=== PATIENT | female | born 1940 | race Caucasian/White ===

== ENCOUNTER 2022-02-09 09:31 | Outpatient (CLI) | payer MEDICARE, OTHER, SELFPAY ==
--- OUTSIDE RECORDS SUMMARY | 2022-02-09 09:33 | XMS_ITS | Clinical Summary ---
:1940 Author Organization [employer] [facility] [place] [address] Care Team Providers Name Role Phone Mel Bahena MD Primary Care Provider Allergies Active Allergy Reactions Severity Noted Date Comments Propoxyphene-Acetamin Hallucinations 03/07/2007 Leonardo ucinations ophen Tolerates oxyco done Ibuprofen 11/09/2007 Tinnitis Naproxen Other - Describe In 10/29/2008 Chemica lhepatitis Comment Field Oxycodone-Acetaminoph Hallucinations 10/15/2007 en Salsalate Ototoxicity 10/29/2007 Acetaminophen 03/07/2007 hepatitis Hydrocodone-Acetamino 03/07/2007 halluc inations phen Medications Medication Sig Dispensed Refills Start Date End Date Status atenolol-chlorthalidone, Take 0.5 tablets 0 09/04/19 18 Active 50-25 mg, (TENORETIC 50) by mouth once 50-25 mg tablet daily. diphenhydrAMINE 1/2 tablet at 0 09/03/2017 Active (BENADRYL) 25 mg capsule bedtime folic acid 400 mcg Take 400 mcg by 0 Active tablet mouth once daily. aspirin enteric coated Take 1 tablet by 60 tablet 0 09/18/2017 Active (ECOTRIN) 325 mg mouth 2 times tabletIndications: daily with Post-operative state meals. sennosides-docusate, Take 1-3 tablets 0 09/18/2017 Active 8.6-50 mg, (SENOKOT S) by mouth 2 times 8.6-50 mg daily. tabletIndications: Post-operative state traMADol (ULTRAM) 50 mg Take ?? - 1 30 tablet 0 09/18/2017 Active tabletIndications: tablet by mouth Post-operative state 4 times daily if needed for Pain. WalkerIndications: Rolling Walker 1 Device 0 09/19/2017 Active Post-operative state for home use. traMADoL (ULTRAM) 50 mg .5-1 tab Q12 h, 30 tablet 0 11/14/2019 Active tabletIndications: prn pain Primary osteoarthritis of right shoulder, Aftercare following surgery Active Problems Problem Noted Date h/o right shoulder arthroscopic rotator cuff repair, s ubacromial 04/07/2019 decompression acromioclavicular joint resection, open subpectoralis biceps resection transplantation DOS: 10/30/2008 by Suzanne Primary osteoarthritis of right shoulder - advanced wi th posterior wear 04/07/2019 Early osteoarthritis of left glenohumeral joint - mode rate with neutral 04/07/2019 wear pattern Hx of Aphasia due to migraine 09/03/2017 UTI (urinary tract infection), once a year 09/03/2017 Primary osteoarthritis of left knee 06/14/2017 Overview: Left total knee arthroplasty on 09/17/[address] Guaman left shoulder s/p arthroscopic RC repair (2.5x2), SAD, AC resection, GH 03/23/2017 debridement (articular cartilage, ganglion cysts), ope n subpec biceps tenodesis-10.5.17 by Jerri Palacios MD History of right shoulder arthroscopic rotator cuff re pair, subacromial 12/20/2016 decompression, AC joint resection; open subpectoral bi ceps resection and transplantation 10/30/[address] Palacios Hip pain s/p OLEG 03/11/2008 OA (osteoarthritis) of knee 10/15/2007 Overview: S/p R TKA 10/15/2007 Essential hypertension 09/16/2007 Stress incontinence Persistent insomnia Obese Chemical induced Hepatitis Overview: tylenol induced Hx of ESBL (extended spectrum beta-lacta [place]) producing bacteria infection from UTI Resolved Problems Problem Noted Date Resolved Date Early osteoarthritis of left glenohumeral joint 03/23/2017 09/03/2017 Impingement syndrome of left shoulder 02/02/2017 Ganglion cyst in infraspinatus, left shoulder 02/02/2017 09/03/2017 Nontraumatic tear of left rotator cuff 02/02/2017 0 09/03/2017 Tendinopathy of left biceps tendon 02/02/201709/03 AC (acromioclavicular) arthritis 02/02/2017 018 Tear of left rotator cuff 12/20/2016 09/03/2017 Knee joint replacement by other means 08/14/2008 Infected dental caries 03/11/2008 09/03/2017 Arthropathy, unspecified, site unspecified 03/07/2007 09/03/2017 Secondary osteoarthritis of left shoulder 09/03/2017 Arthritis of left shoulder region 2017 Immunizations Name Administration Dates Next Due COVID-19 vaccine ([facility] 08/03/2020, 07/13/2020 30mcg/0.3mL) PF, MDV HepA-HepB (Twinrix) 03/30/2004, 05/27/2001, 02/06/2001 Influenza, IIV3 (Age >=3 years) 03/14/2008 Pneumococcal conj 7-Valent (Prevnar 7) 05/27/2001 Td (Age >=7 Years) 03/30/2004 Typhoid (injectable) 02/01/2001 Zoster (Zostavax-ZVL, live) 12/06/2006 Family History Medical History Relation Name Comments Heart Disease Father Cancer-breast Maternal Grandmother Unknown Mother in 40s of p neumonia Autoimmune disease Sister Tracey Colitis Relation Name Status Comments Father Maternal Grandmother Mother Sister Tracey Alive Social History Tobacco Use Types Packs/Day Years Used Date Never Smoker Smokeless Tobacco: Never Used Alcohol Use Standard Drinks/Week Comments Yes 0 (1 standard drink = 0.6 oz pure alcoho l) 2/week Alcohol Habits Answer Date Recorded How often do you have a drink containing alcohol? Not asked How many drinks containing alcohol do you have on a typical Not asked day when you are drinking? How often do you have six or more drinks on one occasion? No t asked Comment: 2/week 09/14/2017 Sex Assigned at Date Recorded Not on file Obstetrics History Last Filed Vital Signs Vital Sign [place] Time Taken Comments Blood Pressure 137/76 09/19/2017 7:46 AM CDT Pulse 63 09/19/2017 7:46 AM CDT Temperature 36.7 ??C (98.1 ??F) 09/19/2017 7:46 AM CDT Respiratory Rate 16 09/19/2017 7:46 AM CDT Oxygen Saturation 94% 09/19/2017 7:46 AM CDT Inhaled Oxygen Concentration - - Weight 97.4 kg (214 lb 11.7 oz) 09/17/2017 10:58 AM CDT Height 166.4 cm (5' 5.5) 09/17/2017 10:58 AM CDT Body Mass Index 35.19 09/17/2017 10:58 AM CDT Plan of Treatment Health Maintenance Due Date Last Done Comments Tdap 01/30/1951 Depression screening for age 12+ 1953 Medicare Wellness for age 65+ 2006 Pneumococcal series for age 65+ (1 - PCV) 01/29/20062000 Zoster (shingles) series for age 50+ (2 of 01/31/200712/06 3) Tetanus booster 03/30/2014 03/30/2004 BMI (ht and wt on same day) for age 18+ 09/03/2018 09/04/19 18, 02/21/2017 COVID-19 vaccine series (3 - Booster for 12/31/2020 021, 07/13/2020 Pfizer series) Influenza for age 65+ 02/09/2022 03/14/2008 DEXA/DXA scan for age 65+ Completed 01/15/2008 Medical Devices Implanted Type Area Sewing Machine Operator Zipper Device Shelf Model / Identifier Expiration Serial / Date Lot Compnt Patella 29mm Resurfacing Carla Ii [id number] Alexander - [id number] Ortho Right: Knee ALEXANDER RAMOS [id number] / Implanted: Qty: 1 on 10/15/2007 at [facility] Total NEPHEW / Joint ORTHOPAEDICS [id number] Insert Cr Sz 3-4 13mm Deep Flexion Gii - [id number] Right: Kn ee ALEXANDER RAMOS [id number]# / Implanted: Qty: 1 on 10/15/2007 at [facility] NEPHEW / ORTHOPAEDICS [id number] Head Fem Short - [id number] Right: Hip Claudia Biomet [id number]# / Implanted: Qty: 1 on 03/11/2008 at [facility] / [id number] [employer] Ftiii - [id number] Right: [employer] [id number]# / Implanted: Qty: 1 on 10/30/2008 at [facility] Shoulder / [id number] Fibertak Rc Suture [place] Triple Loaded Left: 12/08/2021 [id number] / Implanted: Qty: 1 on 03/15/2017 by Jose Ramon Palacios MD at [facility] Shoulder / [id number] Description: FIBERTAK RC SUTURE ANCHOR T RIPLE LOADED Insert Knee Sz4 11mm Triathloncruc Ret X3 - [id number] Left: Knee [employer] 04/30/2022 [id number]-G-[id number]# / Implanted: Qty: 1 on 09/17/2017 by Jadiel Miranda MD at [facility] / [id number] Results Not on filefrom Last 3 Months Additional Health Concerns Infection Onset Date Last Indicated MDRO-GNBComment: ESBL in urine-201403/15/201710/2016 Insurance Payer Benefit Plan / Subscriber ID Effective Dates Phone Addre ss Type Group MEDICARE PART A MEDICARE PART A [id number] 2006-Present ATTN: CLAIMS - HB USE ONLY HB ONLY [address] [place] [address] MEDICARE PART B MEDICARE PART B [id number] 2008-Presen ATTN: CLAIMS - HB USE ONLY HB ONLY t [address] MEDICARE - PB MEDICARE PB [id number] 2018-Present ATT N: CLAIMS USE ONLY ONLY [address] [facility] [employer] [id number] 2018-Present [address] [place] [address] Advance Directives Latest Code Status on File Code Status Date Activated Date Inactivated Comments Full Code 09/17/2017 4:43 PM 09/19/2017 1:37 PM Full Code 09/17/2017 9:50 AM 09/17/2017 4:42 PM Full Code 10/30/2008 12:39 PM 10/31/2008 1:14 PM Full Code 03/11/2008 8:23 PM 03/14/2008 4:36 PM Full Code 10/15/2007 1:21 PM 10/19/2007 4:08 PM Care Teams Helminthology Teacher Relationship Specialty Start Date End Date Mel Bahena MD PCP - General Internal Medicine 08/01/161999 [place] [address]
[2022-02-09 17:49] LABS: Chloride* 103 mmol/L (96-114)
[2022-02-09 17:50] LABS: Potassium* 3.4 mmol/L (3.6-5.1); Sodium* 141 mmol/L (135-149)
[2022-02-09 17:52] LABS: Blood Urea Nitrogen* 18 mg/dL (7-30); Carbon Dioxide* 28 mmol/L (20-32); Creatinine* 0.8 mg/dL (0.5-1.5); Estimated Glomerular Filt Rate 74 ml/min
[2022-02-09 17:53] LABS: Calcium* 9.3 mg/dL (8.4-10.6); Glucose* 104 mg/dL (60-115)
[2022-02-09 18:11] LABS: Vitamin D 25 Hydroxy* 27 ng/mL (30-80)
== END 2022-02-09 09:32 | disposition home or self-care (01) ==
PROVIDERS: Nurse Practitioner Family; PCP Internal Medicine; Visit Provider Internal Medicine
DX: I10 Essential (primary) hypertension (principal); Z79.899 Other long term (current) drug therapy; E55.9 Vitamin D deficiency, unspecified; G47.00 Insomnia, unspecified; E66.9 Obesity, unspecified; F32.A Depression, unspecified; Z13.29 Encounter for screening for other suspected endocrine disorder
CPT/HCPCS: 80048; 82306; 84443

== ENCOUNTER 2022-04-13 09:23 | Outpatient (CLI) | payer MEDICARE, OTHER, SELFPAY ==
--- OUTSIDE RECORDS SUMMARY | 2022-04-13 09:25 | XMS_ITS | Clinical Summary ---
:1940 Author Organization [employer] [facility] [place] [address] Care Team Providers Name Role Phone Mel [...] Name Administration Dates Next Due COVID-19 vaccine ([employer] 08/03/2020, 07/13/2020 30mcg/0.3mL) PF, MDV HepA-HepB (Twinrix) [...] COVID-19 vaccine series (3 - Booster for 09/28/2020 021, 07/13/2020 Pfizer series) Influenza for age 65+ 02/09/2022 03/14/2008 DEXA/DXA scan for age 65+ Completed 01/15/2008 Medical Devices Implanted Type Area Senior Military Analyst Device Shelf Model / Identifier Expiration Serial / Date Lot Compnt Patella 29mm Resurfacing Carla Ii [id number] Alexander - [id number] Ortho Right: Knee ALEXANDER RAMOS [id number] / Implanted: Qty: 1 on 10/15/2007 at [facility] Total NEPHEW / Joint ORTHOPAEDICS [id number] Insert Cr Sz 3-4 13mm Deep Flexion Gii - [id number] Right: Kn ee ALEXANDER RAMOS [id number]# / Implanted: Qty: 1 on 10/15/2007 at [facility] NEPHEW / ORTHOPAEDICS [id number] Head Fem Short - [id number] Right: Hip Claudia Biomet 9026-36# / Implanted: Qty: 1 on 03/11/2008 at [facility] / [id number] [employer]ks[employer]w Ftiii - [id number] Right: [employer] [id number]# / Implanted: Qty: 1 on 10/30/2008 at [facility] Shoulder / [id number] Fibertak Rc Suture [place] Triple Loaded Left: 12/08/2021 [id number] / Implanted: Qty: 1 on 03/15/2017 by Jose Ramon Palacios MD at [facility] Shoulder / [id number] Description: FIBERTAK RC SUTURE ANCHOR T RIPLE LOADED Insert Knee Sz4 11mm Triathloncruc Ret X3 - [id number] Left: Knee [employer] 04/30/2022 5530-G-[id number]# / Implanted: Qty: 1 on 09/17/2017 by Jadiel Miranda MD at [facility] / [id number] Results Not on filefrom Last 3 Months Additional Health Concerns Infection Onset Date Last Indicated MDRO-GNBComment: ESBL in urine-201403/15/201710/2016 Insurance Payer Benefit Plan / Subscriber ID Effective Dates Phone Addre ss Type Group MEDICARE PART A MEDICARE PART A [id number] 2006-Present ATTN: CLAIMS - HB USE ONLY HB ONLY [address] [place] [address] MEDICARE PART B MEDICARE PART B [id number] 2008-Presen ATTN: CLAIMS - HB USE ONLY HB ONLY t [address] MEDICARE - PB MEDICARE PB [id number] 2018-Present ATT N: CLAIMS USE ONLY ONLY [address] [employer] [id number] 2018-Present [address] [place] [address] Advance Directives Latest Code Status on File Code Status Date Activated Date Inactivated Comments Full Code 09/17/2017 4:43 PM 09/19/2017 1:37 PM Full Code 09/17/2017 9:50 AM 09/17/2017 4:42 PM Full Code 10/30/2008 12:39 PM 10/31/2008 1:14 PM Full Code 03/11/2008 8:23 PM 03/14/2008 4:36 PM Full Code 10/15/2007 1:21 PM 10/19/2007 4:08 PM Care Teams Youth Nutritional Monitor Relationship Specialty Start Date End Date Mel Bahena MD PCP - General Internal Medicine 08/01/161999 [place] [address]
[2022-04-13 10:31] LABS: Chloride* 102 mmol/L (96-114); Potassium* 3.4 mmol/L (3.6-5.1); Sodium* 140 mmol/L (135-149)
[2022-04-13 10:34] LABS: Blood Urea Nitrogen* 22 mg/dL (7-30); Carbon Dioxide* 29 mmol/L (20-32); Creatinine* 0.8 mg/dL (0.5-1.5); Estimated Glomerular Filt Rate 74 ml/min; Glucose* 107 mg/dL (60-115)
[2022-04-13 10:35] LABS: Calcium* 9.5 mg/dL (8.4-10.6)
== END 2022-04-13 09:24 | disposition home or self-care (01) ==
LOC: NFLDREF 09:23
PROVIDERS: PCP Internal Medicine; Visit Provider Internal Medicine
DX: I10 Essential (primary) hypertension (principal)
CPT/HCPCS: 80048

== ENCOUNTER 2022-09-07 20:20 | Emergency (ER) | payer MEDICARE, OTHER, SELFPAY ==
[2022-09-07 20:29] VITALS: BP 114/72; PULSE 86; RESP 16; TEMP 37; O2SAT 97; BMI 34.7
--- NOTE | 2022-09-07 20:34 | ED.GENADULT ---
HPI - General Adult General Time Seen by Provider: 20:34 Date Seen: 09/07/22 Chief complaint: Lower Extremity Swelling Stated complaint: Feet pain Time Seen by Provider: 09/07/22 20:34 Source: patient and RN notes reviewed Mode of arrival: ambulatory Limitations: no limitations History of Present Illness HPI narrative: Patient is an 82-year-old female that was calling to request an Effexor reduction thinking that it was causing swelling in her legs. This is a patient that has known chronic multifactorial swelling. She did see a lymphedema specialist after 1 of her orthopedic surgeries as she had severe swelling per her report. She takes chlorthalidone as part of her atenolol for a diuretic. She states she has compression stockings from her orthopedic surgeries and she sometimes wears them. 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 She states her feet are getting more swollen, she will start getting redness in her lower extremities in the get more painful. She admits that her feet are not very swollen at this time. She has had no fevers. She has seen Dr. Bahena and had this evaluated. Related Data Home Medications Medication Instructions Recorded Confirmed cholecalciferol (vitamin D3) 25 25 mcg PO QDAY 04/20/22 09/07/22 mcg (1,000 unit) capsule melatonin 5 mg capsule 2.5 mg PO .Bedtime as needed PRN 04/20/22 09/07/22 venlafaxine 225 mg tablet,extended 225 mg PO QAM 04/20/22 09/07/22 release 24 hr Previous Rx's Medication Instructions Recorded atenolol 50 mg-chlorthalidone 25 0.5 tab PO QDAY #45 tabs 04/20/22 mg tablet Allergies Allergy/AdvReac Type Severity Reaction Status Date / Time Latex Allergy Unknown Redness,Bur Uncoded 07/10/22 14:46 bill Acetaminophen Allergy Unknown Uncoded 07/10/22 14:46 [facility] Medical History (Updated 09/07/22 @ 20:56 by Jennifer Storm MD) History of migraine ?Z86.69 - Personal history of other diseases of the nervous system and sense organs (ICD-10) Surgical History (Updated 04/20/22 @ 15:27 by Mel Bahena MD) History of hip replacement ?Z96.649 - Presence of unspecified artificial hip joint (ICD-10) History of repair of rotator cuff ?Z98.890 - Other specified postprocedural states (ICD-10) History of thyroid nodule ?Z86.39 - Personal history of other endocrine, nutritional and metabolic disease (ICD-10) History of tonsillectomy and adenoidectomy ?Z90.89 - Acquired absence of other organs (ICD-10) History of total knee replacement ?Z96.659 - Presence of unspecified artificial knee joint (ICD-10) Social History Smoking Status: Never smoker Do you use any of these nicotine containing products: None How often do you have a drink containing alcohol: never AUDIT-C Alcohol total score: 0 Non-prescribed substance use: denies use Little interest or pleasure in doing things: not at all Feeling down, depressed, or hopeless: not at all Exam Const: Vital Signs, click to edit/add: Vital Signs - 24 hr 09/07/22 20:29 Temperature 98.6 F Pulse Rate [Left P ulse Oximeter] 86 Respiratory Rate 16 Blood Pressure [Le ft Upper Arm] 114/72 Pulse Oximetry 97 Oxygen Delivery Me thod Room Air Documenting provider has reviewed patient's vital signs: yes Common normals: no apparent distress, oriented x3, no limitations, healthy appearing, alert and well nourished General appearance: cooperative, comfortable, well kempt and well developed Nutritional appearance: obese HENMT: Common normals: normocephalic, head/scalp atraumatic and hearing grossly normal bilaterally Head and scalp: normocephalic and atraumatic Eye: Common normals: PERRL, EOMs intact bilaterally, conjunctivae normal and no scleral icterus Conjunctiva: conjunctiva(e) normal Pupil: PERRL Neck & C-Spine: Common normals: full ROM, no lymphadenopathy and supple Resp: Common normals: normal respiratory effort, no retractions, no use of accessory muscles and clear to auscultation bilaterally Auscultation: clear to auscultation bilaterally Cardio: Common normals: regular rate, regular rhythm, S1 normal heart sound, S2 normal heart sound, no gallops, no clicks and no murmurs Rate: regular rate Rhythm: regular rhythm Heart sounds: S1 normal and S2 normal Extremity: Other: Thickened lower extremities without pitting edema at this time. She has some thickened toenails. Normal peripheral sensation, skin throughout toes and feet are warm dry, not cool. She has got some skin changes with some small little capillary breakage in some hemosiderin staining that looks like it is developing. She has normal sensation. There is no significant erythema and I have absolutely no concerns for any cellulitis. You can see some prominent veins in her feet. Neuro: Common normals: oriented x3 Sensorium/orientation: alert Psych: Appearance: well kempt Course Course Hospital Course: Have reviewed with patient that there is absolutely no evidence of cellulitis. Redness changes with edema when the edema it is there can happen. We also reviewed that people who have edema can have a tendency to have worsening problems as time goes on. She may actually need more than just the Fredy hose that are used postoperatively and in the hospital. It is time for her to head back in to see her primary care provider, see if she needs increased management and this should happen through Dr. Bahena as there is nothing emergent tonight. She certainly does not have any cellulitis, does not even have any significant edema. Reviewed with her that I do understand that edema can be painful but this is not something were going to address and workup further here in the ER. Vital Signs Vital signs: Initial Vital Signs Temperature 98.6 F 09/07/22 20:29 Temperature Source Temporal Artery Scan 09/07/22 20:29 Pulse Rate 86 09/07/22 20:29 Respiratory Rate 16 09/07/22 20:29 Blood Pressure 114/72 09/07/22 20:29 Blood Pressure Mean 86 09/07/22 20:29 Blood Pressure Position Sitting 09/07/22 20:29 Pulse Oximetry 97 09/07/22 20:29 Oxygen Delivery Method Room Air 09/07/22 20:29 Vital Signs Temperature 98.6 F 09/07/22 20:29 Pulse Rate 86 09/07/22 20:29 Respiratory Rate 16 09/07/22 20:29 Blood Pressure 114/72 09/07/22 20:29 Pulse Oximetry 97 09/07/22 20:29 Oxygen Delivery Method Room Air 09/07/22 20:29 Temperature 98.6 F 09/07/22 20:29 Pulse Rate 86 09/07/22 20:29 Respiratory Rate 16 09/07/22 20:29 Blood Pressure 114/72 09/07/22 20:29 Pulse Oximetry 97 09/07/22 20:29 Oxygen Delivery Method Room Air 09/07/22 20:29 Critical Care Time Critical Care Time Critical Care Time: No Discharge Plan Discharge Clinical Impression: Dependent edema Patient Disposition: Home, Self-Care Condition: Stable Instructions: Leg Edema (ED) Additional Instructions: Need to get scheduled with Dr. Bahena as soon as you can get in. Recommend wearing the compression stockings as soon as you wake up in the morning and wear all day if possible. May need to get fitted for more specific compression stockings, talk to Dr. Bahena about this. There is NO evidence of cellulitis at this time. If both legs/feet are becoming red when the edema is there, there is no fever or not feeling ill, it is likely the edema process causing some redness changes. Prescriptions: No Action melatonin 5 mg capsule 2.5 mg PO .Bedtime as needed PRN venlafaxine 225 mg tablet extended release 24hr 225 mg PO QAM cholecalciferol (vitamin D3) 25 mcg (1,000 unit) capsule 25 mcg PO QDAY atenolol-chlorthalidone 50-25 mg tablet 0.5 tab PO QDAY Qty: 45 3RF Follow Up/Referrals: Mel Bahena MD [Primary Care Provider] - Stand Alone Forms: [employer] Info Instructions
[2022-09-07 21:13] VITALS: BP 114/72; PULSE 86; RESP 16; TEMP 37; O2SAT 97
== END 2022-09-07 21:18 | disposition home or self-care (01) ==
PROVIDERS: Emergency Provider Family Medicine; PCP Internal Medicine
DX: R60.9 Edema, unspecified (principal)
CPT/HCPCS: 99282; 99283

== ENCOUNTER 2022-09-23 17:08 | Outpatient (CLI) | payer MEDICARE, OTHER, SELFPAY | END 2022-09-23 17:09 | disposition home or self-care (01) | LOC: AMB 09-25 13:36 | PROVIDERS: PCP Internal Medicine; Visit Provider Family Medicine | DX: S73.005A Unspecified dislocation of left hip, initial encounter (principal) | CPT/HCPCS: A0425; A0427 ==

== ENCOUNTER 2022-09-23 17:55 | Emergency (ER) | payer MEDICARE, OTHER, SELFPAY ==
[2022-09-23] VITALS (31 sets, daily range): BP systolic 106–144; BP diastolic 53–100; PULSE 58–85; RESP 3–22; TEMP 36.6; O2SAT 82–98; BMI 35.5
[2022-09-23] MEDS: 0.9 % SODIUM CHLORIDE 1000 ml 1,000 ML IV (18:00)
--- NOTE | 2022-09-23 18:09 | CRLHL7_ITS ---
For Patients: As a result of the Cures Act, medical imaging exams and procedure reports are released immediately into your electronic medical record. You may view this report before your referring provider. If you have questions, please contact your health care provider. INDICATION: Left hip dislocation. Postreduction. COMPARISON: Pre reduction films from 1820 hours today FINDINGS: The left hip was examined with a cross-table lateral view using portable technique at 1636 hours. An AP view of the pelvis is obtained for a total of 2 views. The previously seen posteriorly dislocated femoral head has been reduced to anatomic alignment with the acetabular component of the left total hip prosthesis. There is no sign of fracture or loosening of the prosthetic components. There is no sign of a periprosthetic fracture. The components of a right total hip prosthesis remain in anatomic alignment with no sign of fracture, loosening, or dislocation. There is no sign of fracture of the holy cross osseous structures. The SI joints and pubic symphysis are normal in appearance. The rest of the bony pelvis and soft tissues are normal in appearance. IMPRESSION: Satisfactory reduction of previously dislocated left total hip prosthesis. Dictated by Dc Pinzon MD @ 09/23/2022 9:21:10 PM (Electronically Signed)
--- NOTE | 2022-09-23 18:09 | CRLHL7_ITS ---
For Patients: As a result of the Cures Act, medical imaging exams and procedure reports are released immediately into your electronic medical record. You may view this report before your referring provider. If you have questions, please contact your health care provider. HISTORY: Injury. Left hip pain. TECHNIQUE: AP pelvis and lateral view left hip. COMPARISON: No prior. FINDINGS: Left total hip arthroplasty. There is posterior dislocation of the head of the femoral component with respect to the acetabular component. No acute fracture. Intact right total hip arthroplasty. Degenerative changes of the sacroiliac joints and within the lower lumbar spine. IMPRESSION: Left total hip arthroplasty with posterior dislocation of the head of the femoral component with respect to the acetabular component. Dictated by [place] Whitney MD @ 09/24/2022 9:54:28 AM (Electronically Signed)
[2022-09-23] MEDS: fentaNYL 100 MCG/2 ML inj 50 MCG IVP (18:10)
[2022-09-23] MEDS: PROPOFOL 10 MG/ML INJ 200 MG IVP (18:29)
--- NOTE | 2022-09-23 18:29 | ED.NURSE ---
L hip reduction procedure start time. MD Gallego, MD Mina, RT, and music writer in for procedure. Pt on 3L O2 NC.
--- NOTE | 2022-09-23 18:35 | ED.NURSE ---
Procedure end time. Pt did require some supportive oxygenation via BVM during procedure. Pt remains on 3L O2 NC.
--- NOTE | 2022-09-23 18:40 | ED.NURSE ---
Supplemental O2 BEULAH'janeen.
--- NOTE | 2022-09-23 18:54 | ED.NURSE ---
Pt O2 sats dropping to low 80's when pt falls back asleep periodically. Pt easily rousable and O2 sats recover to high 90's with deep breaths.
--- NOTE | 2022-09-23 19:25 | ED.LOWEXIN ---
HPI - Extremity Injury (Lower) General Date Seen: 09/23/22 Chief Complaint: Hip Injury/Pain Stated Complaint: Fall with Hip Pain Time Seen by Provider: 09/23/22 18:05 Source: patient Mode of arrival: ambulatory Limitations: no limitations History of Present Illness HPI Narrative: Patient is 82-year-old female who presents from home, she was standing there when EMS arrived, she had bent over and twisted her leg, she told EMS she thinks she dislocated her hip, EMS gave her 4 mg of Versed on the way over along with 100 mg intranasally of fentanyl. She is still having extreme pain on the left hip, her left hip is shortened and externally rotated. She last ate approximately 6 hours ago, there is no other history of injury or fall noted. She has never before dislocated her hip, had this hip done 20 years ago complaint: hip injury Related Data Home Medications Medication Instructions Recorded Confirmed cholecalciferol (vitamin D3) 25 25 mcg PO QDAY 04/20/22 09/07/22 mcg (1,000 unit) capsule melatonin 5 mg capsule 2.5 mg PO .Bedtime as needed PRN 04/20/22 09/07/22 venlafaxine 225 mg tablet,extended 225 mg PO QAM 04/20/22 09/07/22 release 24 hr Previous Rx's Medication Instructions Recorded atenolol 50 mg-chlorthalidone 25 0.5 tab PO QDAY #45 tabs 04/20/22 mg tablet Allergies Allergy/AdvReac Type Severity Reaction Status Date / Time Latex Allergy Unknown Redness,Bur Uncoded 07/10/22 14:46 bill Acetaminophen Allergy Unknown Uncoded 07/10/22 14:46 Review of Systems Status of ROS: Reports: 6 or more systems reviewed and unremarkable except as noted in History and below and unobtainable due to medical condition PFSH [facility] Medical History History of migraine ?Z86.69 - Personal history of other diseases of the nervous system and sense organs (ICD-10) Surgical History History of hip replacement ?Z96.649 - Presence of unspecified artificial hip joint (ICD-10) History of repair of rotator cuff ?Z98.890 - Other specified postprocedural states (ICD-10) History of thyroid nodule ?Z86.39 - Personal history of other endocrine, nutritional and metabolic disease (ICD-10) History of tonsillectomy and adenoidectomy ?Z90.89 - Acquired absence of other organs (ICD-10) History of total knee replacement ?Z96.659 - Presence of unspecified artificial knee joint (ICD-10) Social History Smoking Status: Never smoker Do you use any of these nicotine containing products: None How often do you have a drink containing alcohol: never AUDIT-C Alcohol total score: 0 Non-prescribed substance use: denies use Little interest or pleasure in doing things: not at all Feeling down, depressed, or hopeless: not at all Exam Narrative: Exam Narrative: I find her in stabilization room 1, she is in some moderate to moves to 3 years distress with complains of pain, we gave her some more fentanyl for this. Her left hip is shortened and externally rotated, abdomen is soft, chest is good air entry bilaterally heart sounds are normal, her neck is supple full range of motion, no evidence of trauma or head or neck, I did roll on her side, there is no evidence of trauma the side. She has good distal pulses in her left leg, her DP and posterior tibial. I did discuss with the my other colleagues who was able to do anesthesia, respiratory was also there. She was given propofol, x-ray was done, which showed a dislocation of the left hip it appeared to be posterior on the x-rays. With my colleague Dr. Mina to anesthesia, we were able to or I was able to relocate her left hip, hip was full through full range of motion, satisfying clunk was noted. post reduction films look like the hip is in good position she is recovering normally. She is able ambulate with a walker, I think we can send her home. To ambulate with a walker, and follow up with Orthopedics, Const: Vital Signs, click to edit/add: Vital Signs - 24 hr 09/23/22 18:03 09/23/22 18:20 09/23/22 18:15 Temperature 97.8 F Pulse Rate 71 Pulse Rate [Pulse Oximeter] 81 Respiratory Rate Blood Pressure Blood Pressure [Ri ght Upper Arm] 125/97 H Pulse Oximetry 97 98 96 Oxygen Delivery Me thod Room Air Nasal Cannula Oxygen Flow Rate 3 09/23/22 18:29 09/23/22 18:30 09/23/22 18:32 Temperature Pulse Rate 76 73 85 Pulse Rate [Pulse Oximeter] Respiratory Rate 14 15 Blood Pressure 144/98 H 124/97 H Blood Pressure [Ri ght Upper Arm] Pulse Oximetry 98 96 82 L Oxygen Delivery Me thod Nasal Cannula Nasal Cannula Ambu-Bag Oxygen Flow Rate 3 3 15 09/23/22 18:37 09/23/22 18:42 09/23/22 18:45 Temperature Pulse Rate 79 67 68 Pulse Rate [Pulse Oximeter] Respiratory Rate 3 L 17 13 Blood Pressure 134/83 122/64 Blood Pressure [Ri ght Upper Arm] Pulse Oximetry 88 98 96 Oxygen Delivery Me thod Nasal Cannula Room Air Room Air Oxygen Flow Rate 3 09/23/22 18:47 09/23/22 18:52 09/23/22 18:53 Temperature Pulse Rate 69 69 67 Pulse Rate [Pulse Oximeter] Respiratory Rate 15 10 L 15 Blood Pressure 124/71 127/78 Blood Pressure [Ri ght Upper Arm] Pulse Oximetry 85 L 90 85 L Oxygen Delivery Me thod Room Air Room Air Oxygen Flow Rate 09/23/22 18:57 09/23/22 18:58 09/23/22 19:00 Temperature Pulse Rate 67 58 L 67 Pulse Rate [Pulse Oximeter] Respiratory Rate 13 13 13 Blood Pressure 117/68 Blood Pressure [Ri ght Upper Arm] Pulse Oximetry 96 97 97 Oxygen Delivery Me thod Oxygen Flow Rate 09/23/22 19:02 09/23/22 19:07 09/23/22 19:12 Temperature Pulse Rate 67 64 64 Pulse Rate [Pulse Oximeter] Respiratory Rate 15 14 14 Blood Pressure 119/75 126/100 H 125/71 Blood Pressure [Ri ght Upper Arm] Pulse Oximetry 98 98 96 Oxygen Delivery Me thod Oxygen Flow Rate 09/23/22 19:15 09/23/22 19:22 09/23/22 19:30 Temperature Pulse Rate 60 72 69 Pulse Rate [Pulse Oximeter] Respiratory Rate 11 L 22 11 L Blood Pressure 129/58 L Blood Pressure [Ri ght Upper Arm] Pulse Oximetry 98 86 L 90 Oxygen Delivery Me thod Oxygen Flow Rate 09/23/22 19:43 09/23/22 19:45 Temperature Pulse Rate 69 66 Pulse Rate [Pulse Oximeter] Respiratory Rate 15 12 Blood Pressure 127/62 Blood Pressure [Ri ght Upper Arm] Pulse Oximetry 94 96 Oxygen Delivery Me thod Oxygen Flow Rate Course Vital Signs Vital signs: Initial Vital Signs Temperature 97.8 F 09/23/22 18:03 Temperature Source Temporal Artery Scan 09/23/22 18:03 Pulse Rate 81 09/23/22 18:03 Blood Pressure 125/97 H 09/23/22 18:03 Blood Pressure Mean 106 09/23/22 18:03 Blood Pressure Position Supine 09/23/22 18:03 Pulse Oximetry 97 09/23/22 18:03 Oxygen Delivery Method Room Air 09/23/22 18:03 Vital Signs Temperature 97.8 F 09/23/22 18:03 Pulse Rate 81 09/23/22 18:03 Blood Pressure 125/97 H 09/23/22 18:03 Pulse Oximetry 97 09/23/22 18:03 Oxygen Delivery Method Room Air 09/23/22 18:03 Temperature 97.8 F 09/23/22 18:03 Pulse Rate 66 09/23/22 19:45 Respiratory Rate 12 09/23/22 19:45 Blood Pressure 127/62 09/23/22 19:43 Pulse Oximetry 96 09/23/22 19:45 Oxygen Delivery Method Room Air 09/23/22 18:52 Oxygen Flow Rate 3 09/23/22 18:37 MDM - Extremity Injury (Lower) Medical Records Attestation: I reviewed the patient's medical records. Discharge Plan Discharge Clinical Impression: Dislocation, hip Patient Disposition: Home, Self-Care Condition: Improved Instructions: Crutch Instructions (ED), Hip Dislocation (ED), Hip Abduction Pillow (DC) Additional Instructions: We generally send people home after this procedure, use the hip adduction pillow, we could try crutches or lose let you walk with a cane. Follow-up with orthopedics of ongoing signs symptoms. Careful with bending and that way that caused the issue. Tylenol 1 g p.o. t.i.d.. Activity Level: Light activity Prescriptions: No Action melatonin 5 mg capsule 2.5 mg PO .Bedtime as needed PRN venlafaxine 225 mg tablet extended release 24hr 225 mg PO QAM cholecalciferol (vitamin D3) 25 mcg (1,000 unit) capsule 25 mcg PO QDAY atenolol-chlorthalidone 50-25 mg tablet 0.5 tab PO QDAY Qty: 45 3RF Follow Up/Referrals: Mel Bahena MD [Primary Care Provider] - Stand Alone Forms: [employer] Info Instructions
--- NOTE | 2022-09-23 20:10 | ED.NURSE ---
Patient noted to desaturate to 87-89% while resting. Returns to the low 90's after several minutes. Placed patient on 1L NC. Will continue to monitor and titrate down as able.
--- NOTE | 2022-09-23 21:40 | ED.NURSE ---
Pt able to ambulate independently with a walker. Tolerates ambulation well.
== END 2022-09-23 21:57 | disposition home or self-care (01) ==
LOC: ED 20:11 → ED2 21:34
PROVIDERS: Emergency Provider Family Medicine; PCP Internal Medicine
DX: S73.005A Unspecified dislocation of left hip, initial encounter (principal); W19.XXXA Unspecified fall, initial encounter
CPT/HCPCS: 27252; 72170; 96374; 99284; 99291; J2704; J3010; J7030

== ENCOUNTER 2023-01-22 08:40 | Emergency (ER) | payer MEDICARE, OTHER, SELFPAY ==
[2023-01-22 08:50] VITALS: BP 133/78; PULSE 72; RESP 18; TEMP 36.9; O2SAT 96; BMI 35.5
--- NOTE | 2023-01-22 09:44 | CRLHL7_ITS ---
For Patients: As a result of the Century Cures Act, medical imaging exams and procedure reports are released immediately into your electronic medical record. You may view this report before your referring provider. If you have questions, please contact your health care provider. Indication: Pain, swelling Technique: Three views left wrist Comparison: None Findings: Degenerative changes are present at the radial aspect of the wrist. Osteopenia noted. Chondrocalcinosis of the TFCC. Normal carpal alignment. Impression: No sign of acute injury. Dictated by Jarod Cm MD @ 01/22/2023 10:47:29 AM (Electronically Signed)
--- NOTE | 2023-01-22 09:45 | ED_ITS ---
HPI - Extremity Injury (Upper) General Chief Complaint: Extremity Pain/Injury, Upper Stated Complaint: L arm injury - wants imaging Time Seen by Provider: 01/22/23 09:40 History of Present Illness HPI narrative: This 82-year-old female comes with pain in her left wrist and forearm. She does not describe any particular injury event but states that she has been taking care of her and thinks that she over did it trying to lift him and help move him around. She has pain and swelling in the left wrist joint. She states that she is in need of extra help at home and caring for her . She does have home health care for 12 hours a week and plans to talk with those people for additional options. Related Data Home Medications Medication Instructions Recorded Confirmed cholecalciferol (vitamin D3) 25 25 mcg PO QDAY 04/20/22 10/17/22 mcg (1,000 unit) capsule melatonin 5 mg capsule 2.5 mg PO .Bedtime as needed PRN 04/20/22 10/17/22 omega-3 fatty acids [Fish Oil] PO QDAY 10/17/22 10/17/22 Previous Rx's Medication Instructions Recorded atenolol 50 mg-chlorthalidone 25 0.5 tab PO QDAY #45 tabs 04/20/22 mg tablet venlafaxine 150 mg 150 mg PO QAM #90 caps 12/02/22 capsule,extended release 24 hr hydrocodone 5 mg-acetaminophen 325 1 tab PO Q4-6H PRN pain #20 tabs 01/22/23 mg tablet Allergies Allergy/AdvReac Type Severity Reaction Status Date / Time acetaminophen Allergy Verified 10/17/22 10:03 latex Allergy burning, Verified 10/17/22 10:03 reddness Review of Systems Status of ROS: Reports: 10 or more systems reviewed and unremarkable except as noted in History and below Narrative: Constitutional: No fevers, no weight gain or loss. Eyes: No discharge. No vision changes. HENT: No congestion, no sore throat, no ear pain. Cardiovascular: No chest pain, no palpitations. Respiratory: No shortness of breath, no wheezes, no cough. Gastrointestinal: No abdominal pain, no vomiting, no diarrhea. Genitourinary: No dysuria, no hematuria. Musculoskeletal: Left wrist pain as described above. Skin: No rashes, no pruritis. Neurological: No dizziness, weakness, sensory change, speech change. Endo/Heme/Allergies: No bruising or bleeding. No polydipsia. Pysch: no suicidality, no anxiety, no insomnia. All other systems reviewed and are negative. [facility] Medical History (Updated 01/22/23 @ 11:14 by Nixon Wincehster MD) Depression ?F32.A - Depression, unspecified (ICD-10) History of migraine ?Z86.69 - Personal history of other diseases of the nervous system and sense organs (ICD-10) Surgical History (Updated 10/17/22 @ 10:18 by Rica Stevenson) Status post total right knee replacement (~2008) ?Z96.651 - Presence of right artificial knee joint (ICD-10) History of tonsillectomy and adenoidectomy ?Z90.89 - Acquired absence of other organs (ICD-10) History of thyroid nodule ?Z86.39 - Personal history of other endocrine, nutritional and metabolic disease (ICD-10) History of repair of rotator cuff ?Z98.890 - Other specified postprocedural states (ICD-10) History of total knee replacement ?Z96.659 - Presence of unspecified artificial knee joint (ICD-10) History of hip replacement ?Z96.649 - Presence of unspecified artificial hip joint (ICD-10) Social History (Updated 10/17/22 @ 10:08 by Lay Pimentel ~ [facility], [facility]) 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 HEENT: Normocephalic, atraumatic. Neck: Normal range of motion. Nontender. Supple. Heart: Intact distal pulses. Lungs: No chest discomfort. No wheezes, rhonchi, or rales. Abdomen: Nontender. Back: Normal range of motion. Extremities: Left wrist has some erythema and swelling with decreased range of motion. Skin: Intact. No rash. Warm. No erythema or pallor. Neurologic: No altered sensation. No weakness. Alert and oriented. Psychiatric: No suicidality. No anxiety or depression. No insomnia. Nursing notes and vitals signs are reviewed. Const: Vital Signs, click to edit/add: Vital Signs - 24 hr 01/22/23 08:50 Temperature 98.4 F Pulse Rate [Right Pulse Oximeter] 72 Respiratory Rate 18 Blood Pressure [Ri ght Upper Arm] 133/78 Pulse Oximetry 96 Oxygen Delivery Me thod Room Air Course Vital Signs Vital signs: Initial Vital Signs Temperature 98.4 F 01/22/23 08:50 Temperature Source Temporal Artery Scan 01/22/23 08:50 Pulse Rate 72 01/22/23 08:50 Respiratory Rate 18 01/22/23 08:50 Blood Pressure 133/78 01/22/23 08:50 Blood Pressure Mean 96 01/22/23 08:50 Blood Pressure Position Sitting 01/22/23 08:50 Pulse Oximetry 96 01/22/23 08:50 Oxygen Delivery Method Room Air 01/22/23 08:50 Vital Signs Temperature 98.4 F 01/22/23 08:50 Pulse Rate 72 01/22/23 08:50 Respiratory Rate 18 01/22/23 08:50 Blood Pressure 133/78 01/22/23 08:50 Pulse Oximetry 96 01/22/23 08:50 Oxygen Delivery Method Room Air 01/22/23 08:50 Temperature 98.4 F 01/22/23 08:50 Pulse Rate 72 01/22/23 08:50 Respiratory Rate 18 01/22/23 08:50 Blood Pressure 133/78 01/22/23 08:50 Pulse Oximetry 96 01/22/23 08:50 Oxygen Delivery Method Room Air 01/22/23 08:50 MDM - Extremity Injury (Upper) MDM Narrative Medical decision making narrative: This patient comes in with pain and swelling of her left wrist. There was no specific injury event but there was a number of times when she was attempting to lift her who just had a stroke a couple weeks ago. X-ray imaging today shows no sign of fracture or dislocation. The patient received a wrist splint. She did also receive an injection of morphine 6 mg here and I provided a prescription for some tablets of [place] going forward. I advised her to get out of the splint as tolerated and to increase activity accordingly. Imaging Data XR L Wrist: Radiologist's impression: No sign of acute injury. Discharge Plan Discharge Clinical Impression: Sprain and strain of wrist Patient Disposition: Home, Self-Care Condition: Unchanged Additional Instructions: Wear splint as needed. Take medication also as needed and directed. Increase activity as tolerated. Follow up with MD or return if worsening. Prescriptions: New hydrocodone-acetaminophen 5-325 mg tablet 1 tab PO Q4-6H PRN (Reason: pain) Qty: 20 0RF No Action melatonin 5 mg capsule 2.5 mg PO .Bedtime as needed PRN cholecalciferol (vitamin D3) 25 mcg (1,000 unit) capsule 25 mcg PO QDAY atenolol-chlorthalidone 50-25 mg tablet 0.5 tab PO QDAY Qty: 45 3RF omega-3 fatty acids [Fish Oil] PO QDAY venlafaxine 150 mg capsule,extended release 24hr 150 mg PO QAM Qty: 90 0RF Follow Up/Referrals: Mel Bahena MD [Primary Care Provider] - Stand Alone Forms: [employer] Info Instructions
[2023-01-22] MEDS: MORPHINE 10 MG/ML inj 6 MG IM (09:51)
== END 2023-01-22 11:34 | disposition home or self-care (01) ==
PROVIDERS: Emergency Provider Emergency Medicine Emergency Medical Services; PCP Internal Medicine
DX: S63.502A Unspecified sprain of left wrist, initial encounter (principal); X50.1XXA Overexertion from prolonged static or awkward postures, initial encounter
CPT/HCPCS: 73110; 96372; 99283; 99284; J2270

== ENCOUNTER 2023-03-21 13:45 | Outpatient (RCR) | payer MEDICARE, OTHER, SELFPAY ==
--- NOTE | 2023-02-01 07:44 | PT.OPEX ---
PT [facility] Outpatient Eval PT [facility] Outpatient Eval Start: 01/10/23 08:24 Freq: Status: Active Protocol: Document 01/31/23 12:56 ENM (Rec: 01/31/23 15:41 ENM [id number]) E-signed By Latricia Morales, DPT Physical Therapy Outpatient Evaluation Insurance Information Recert Due Date 04/25/23 Insurance Name Medicare B Medical Diagnosis dislocation of hip, left, closed left dislocation with a history of left OLEG-PA in 2004 Treating Diagnosis decreased strength, impaired gait, impaired balance, right glute pain, bilateral ankle pain, deconditioning Referring MD Zahra Subjective Subjective Patient presents to PT for follow up after left OLEG replacement dislocation (via posterior approach 2004). Dislocation occurred on , was seen in the ED and hip was reduced. She had a follow up with orthopedics on 10/17/22 . At last visit MD states that She should avoid the left knee crossing the mid-line of the body. She may consider a knee immobilizer to help prevent flexing her hip. I will plan on seeing the patient p.r.n. She has tried not to cross her legs but cannot avoid bending since she cares for her . Since then her main concern is her balance. It has been very challenging and troubling trying to navigate steps and stairs without railings. She feels that her stability is poor and that it may be impacting her ability to care for her . 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 She was not able to focus on herself before but now she is hiring more help as her had a third stroke. When she gets tired she really waddles. She has been watching herself walk and noticed that she is very pigeon-toed. She has always had a limp but it has never been as bad as it is now. Most of her day is spent sitting in a chair or caring for her . She has been sleeping on the couch now for years as her requires the bed. PMHx: three hip replacements,2 knee replacements, bilateral foot/ankle pain, left wrist strain Pain Comments moderate ankle Current Work Status Retired Preferred Name Krysta Objective Other/Pertinent Objective STRENGTH: hip flexors 3+/5 B knee extensors 4-/5 B 5x STS with use of arms 11.38s with discomfort in knees Fair glute set in supine hooklying poor functional core weakness noted with supine to sit, requiring assist to sit up Patient with functional hip abductor weakness with ambulation, unable to perform standing hip abduction due to pain at L hip and weakness B GAIT/AMBULATION: narrow KATHY 10s, minimal instability modified tandem stance 10s, mild instability true tandem 10s, mod instability SLS able to hold 2-3s B, pain starting in L glute when performing Patient ambulates with Trendelenburg gait trunk lean to clear bilateral LEs, small step length, minimal hip extension B and LLE IR throughout gait cycle OTHER: Significant tenderness to palpation and tension at bilateral hip flexors. Feels a stretch with just laying supine Assessment Assessment/Impression Patient is an 83 year old female presenting with balance and strength deficits that have steadily worsened over the last couple of months. She has a history for dislocation of left hip replacement performed via posterior approach in 2004. Their primary complaint is of difficulties walking, navigating steps and curbs. PMHx significant for 2 knee replacements, 3 hip replacements, left wrist sprain, bilateral ankle pains and rotator cuff repair. Upon assessment patients concordant pains in L hip brought on with SLS, hip abduction, hip extension and ambulation. Patient ambulates with trendelenburg impairment bilaterally, small step length, reduced hip extension and LLE hip IR throughout gait cycle. Gait pattern does improve with use of a 4WW for support, no significant improvement with use of cane. Krysta displays decreased functional strength of core with supine>sit and LE unable to complete STS without UE support. SLS limited to less than 3s on both sides with more difficulty and pain performing on LLE. Krysta would greatly benefit from skilled PT to address impairments stated above in order to perform all functional mobility and caregiving duties without significant discomfort or difficulty. As well as improve safety and decrease risk for future falls. Primary Functional Limitations stairs, curbs, walking, Plan of Care Physical Therapy Goals In 10-12 visits: 1. Patient will be IND with HEP and self management of symptoms 2. Patient will perform x5 STS without use of arms to demonstrate improvements in LE functional strength for caregiving duties 3. Patient will be able to hold SLS for at least 5s demonstrating improvements in balance and stability 4. Patient will ambulate at least 150' with LRAD and no hip pain to demonstrate improvements in community mobility 5. Patient will be able to step up on the curb with LRAD and no assist in order to participate in family outings Coordination/Communication With Referral Source Treatment Plan/Direct Interventions Gait Training,Joint Mobilization,Manual Therapy, Neuromuscular Re-ed,Self-Care/ Home Management,Therapeutic Activities,Therapeutic Exercises Frequency/Duration 1x a week for 10-12 visits Patient Will Be Discharged From Therapy Completion of LTG(s), Independent w/HEP Evaluation Billing Untimed Code Treatment Minutes 34 Complexity Moderate Certification Information Initial Certification Date 01/31/23 Ending Certification Date 04/25/23 Provider Signature Shows Agreement With POC & Medical Necessity Physician Signature & Date Requested Please Sign/Date Here Physician Comment/Change : Physician NPI Number #
--- NOTE | 2023-03-07 16:29 | OT.OPOE ---
OT Outpatient Ortho Eval OT Outpatient Ortho Eval* Start: 03/05/23 08:14 Freq: Status: Active Protocol: Document 03/07/23 08:15 DIDIER (Rec: 03/05/23 11:32 DIDIER [email or web address]) E-signed By Kayley Gatica, OTR/L, CLT OT OP Ortho Eval Details Complexity Complexity Low Insurance Information Insurance Information Medicare B Outpatient History/Precautions Current Condition/Medical Diagnosis Referring Provider Dr. 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 G56.0 Date of Onset January Other Precautions Medical dx: L carpal tunnel syndrome Other Conditions Medications: atenolol-chlorthalidone 50-25 mg 0.5 tabs PO QDAY cholecalciferol (vitamin D3) 25 mcg PO QDAY melatonin 2.5 mg PO .Bedtime as needed PRN venlafaxine ER 225 mg PO QAM Medical/Functional History Medical History Reviewed Yes Prior Level of Function/Mobility PMH: copied from medical chart Morbid obesity with body mass index (BMI) of 40.0 or higher (Acute) E66.01 - Morbid (severe) obesity due to excess calories (ICD-10) Dependent edema (Acute) on prn furosemide, multifactorial, (obesity/not enough exercise/chronic NSAID use), 02/25 worsening due to chronic NSAID use R60.9 - Edema, unspecified ( ICD-10) Persistent insomnia (Acute) G47.00 - Insomnia, unspecified (ICD-10) Homocysteinemia (Acute) 12/19 as part of evaluation for aphasic spell R79.83 - Abnormal findings of blood amino-acid level (ICD-10 ) Stress incontinence (Acute) N39.3 - Stress incontinence ( female) (male) (ICD-10) Situational depression (Acute) Sertraline started 11/22, she stopped it 09/23, resumed again 11/23, she stopped it 04/25 herself, sertraline resumed at her request, sertraline increased 01/29, she asked for psychology referral 01/30, saw coal pulverizing operator (Muna Raymundo) 01/30 and sertraline changed to venlafaxine 01/30 F43.21 - Adjustment disorder with depressed mood (ICD-10) Essential hypertension (Acute) on medication Social History Employment Status Retired 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 [employer]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 Ortho Subjective Subjective Subjective This is really impacting my routine and ability to care for my , I'm in consent pain Pain Assessment Pain Present Pain Present Pain Reported Location Left Wrist Description Burning,Radiating,Sharp, Shooting Intensity 7 Hand Pinch/Landscaper Helper Strength Hand Right Landscaper Helper Strength Position 1 (lbs) 45 Landscaper Helper Strength Position 2 (lbs) 48 Lateral Pinch Strength (lbs) 11 Three Point Pinch (lbs) 10 Tip Pinch Strength (lbs) 9 Left Landscaper Helper Strength Position 1 (lbs) 18 Landscaper Helper Strength Position 2 (lbs) 20 Lateral Pinch Strength (lbs) 5 Three Point Pinch (lbs) 9 Tip Pinch Strength (lbs) 6 Upper Extremity Special Tests Wrist Durkan's Test Positive Left Median Nerve-Carpal Tunnel Wrist Phalen Test Positive Left OT Problems Problems Problems Decreased Strength,Decreased Range of Motion,Decreased Dexterity,Pain,Decreased Coordination,Sensory Sensitivity,Lifting,Gripping, Pinching Problems Comments X-ray from 01/22/23 showed moderate-severe CMC joint osteoarthrosis. Otherwise, no acute fractures, or intraosseous pathology. Other Problems Opening Containers,Dressing, Fasteners,Sleeping Patient Potential Good Assessment Assessment Assessment 83-year-old L hand dominant patient saw Dr. Sweeney on the Feb. with the chief compliant of left hand pain. Per the chart review from provider note, she stated that she feels like her hand pain/discomfort is coming from repetitively pulling her up with the gait belt. Her pain is sharp and severe. Patient has a pre-carrillo wrist brace that she wears on the L hand, she previously presented to an ER for care on the 22 of January and was told she had a sprained wrist (went to Urgent care on 02/14/23 with the same chief compliant and referred to Ortho and was seen by Dr. Sweeney on the Feb). She is having pain and numbness in the radial 3-5 digits. She is having burning in her thumb as well. She feels her left hand is useless because of pain and numbness. Her pain is sharp, intermittent and relieves with rest. The patient has tried ice, Tylenol/oral NSAIDs, rest , activity modification, bracing all with minimal and non-lasting relief. Bracing overnight provides her some relief. 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 Provider notes stated that a cortisone injection was the plan-as a next step. Patient declined having the injection done at time of visit with provider due to fear of the pain of the injection. Patient wanted to try a conservative approach and attend therapy with skilled OT at the clinic as surgery is not an option right now. 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 Otherwise, no acute fractures, or intraosseous pathology. Set Goals Goals Set with Patient Yes Goals Goals 1. Pt will demonstrate pain- free sawmill manager and pinch strength comparable to the uninvolved side in order to improve functional grasp, hold, reach, and lifting ability needed to complete self-care, leisure tasks, and work activities. 2. Patient will be Indep with an individualized, comprehensive HEP with participation >15 mins per day 4-5 days per week. 3. Patient was accurately perform Median Nerve Glides and Nerve Flossing with use of handout. 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 Access Code: [email or web address] URL: [email or web address] Date: 03/05/2023 Prepared by: Kayley Gatica Exercises - Median Nerve Flossing - Tray - 1 x daily - 7 x weekly - 3 sets - 10 reps - Median Nerve Mobilization - 1 x daily - 7 x weekly - 3 sets - 10 reps - Doorway Pec Stretch at 90 Degrees Abduction - 1 x daily - 7 x weekly - 3 sets - 10 reps - Shoulder External Rotation and Scapular Retraction with Resistance - 1 x daily - 7 x weekly - 3 sets - 10 reps - Standing Shoulder Row with Anchored Resistance - 1 x daily - 7 x weekly - 3 sets - 10 reps - Prone Shoulder Horizontal Abduction with External Rotation - 1 x daily - 7 x weekly - 3 sets - 10 reps - Scapular Protraction and Retraction on Elbows with External Rotation - 1 x daily - 7 x weekly - 3 sets - 10 reps - Wrist Prayer Stretch - 1 x daily - 7 x weekly - 3 sets - 10 reps - Wrist Extension with Dumbbell - 1 x daily - 7 x weekly - 3 sets - 10 reps - Tricep Push Up on Wall - 1 x daily - 7 x weekly - 3 sets - 10 reps - Wall Push Up with Arms Wide - 1 x daily - 7 x weekly - 3 sets - 10 reps Certification Certification I Certify That: Therapy Services Provided, Therapy Plan Established, Therapy Plan Reviewed Recertification Information Recertification Information Initial Certification Date 03/07/23 Recertification Due Date 06/03/23 Provider Signature Shows Agreement With POC & Medical Necessity Physician Comment/Change Comment or Changes Physician NPI Number #
== END 2023-04-25 11:28 | disposition home or self-care (01) ==
PROVIDERS: PCP Internal Medicine; Visit Provider Orthopaedic Surgery Sports Medicine
DX: S73.005A Unspecified dislocation of left hip, initial encounter (principal); G56.02 Carpal tunnel syndrome, left upper limb; M25.572 Pain in left ankle and joints of left foot; Z51.89 Encounter for other specified aftercare; M25.571 Pain in right ankle and joints of right foot; M79.10 Myalgia, unspecified site; R53.1 Weakness; R26.81 Unsteadiness on feet
CPT/HCPCS: 97035; 97110; 97162; 97165; 97530; X5282

== ENCOUNTER 2023-07-19 08:23 | Outpatient (CLI) | payer MEDICARE, OTHER, SELFPAY ==
--- OUTSIDE RECORDS SUMMARY | 2023-07-20 05:30 | XMS_ITS | Clinical Summary ---
Author Name Unknown Organization [facility] Address [place], [place] [address] Care Team Providers Care Senior Electronics Engineer Name Role Phone Mel Bahena MD Primary Care Provider [phone] Allergies Active Allergy Reactions Criticality Noted Date Comments Propoxyphene-Acetamino phen Hallucinations 03/07/2007 Hallucinations Tolerates oxycodone Ibuprofen 11/09/2007 Tinnitis Naproxen Other - Describe In Comment Field 10/29/2008 Chemicalhepatit is Oxycodone-Acetaminophe n Hallucinations 10/15/2007 Salsalate Ototoxicity 10/29/2007 Acetaminophen 03/07/2007 hepatitis Hydrocodone-Acetaminop hen 03/07/2007 hallucinations Medications Medication Sig Dispensed Refills Start Date End Date Status atenolol-chlorthalidon e, 50-25 mg, (TENORETIC 50) 50-25 mg tablet Take 0.5 tablets by mouth once daily. 0 09/03/2017 Active folic acid 400 mcg tablet Take 400 mcg by mouth once daily. 0 Active venlafaxine (Effexor XR) 150 mg Extended-Release capsule Take 150 mg by mouth once daily with a meal. 0 Active calcium phosphate dibas/vit D3 (VITAMIN D, WITH CALCIUM, ORAL) Take by mouth. 0 Active melatonin 3 mg tablet Take 1 Tablet (3 mg) by mouth once daily. 0 03/29/2023 Active cholecalciferol (Vitamin D) 1,000 unit capsule Take 1 Capsule (1,000 units) by mouth once daily. 0 03/29/2023 Active Active Problems Problem Noted Date Diagnosed Date Osteoarthritis of right glenohumeral joint 04/16 Osteoarthritis of left glenohumeral joint 2022 Hx of Aphasia due to migraine 09/03/2017 UTI (urinary tract infection), once a year 09/03 Primary osteoarthritis of left knee 06/14/2017 Overview: Left total knee arthroplasty on 09/17/[address] Guaman left shoulder s/p arthroscop ic RC repair (2.5x2), SAD, AC resection, GH debridement (articular cartilage, ganglion cysts), open subpec biceps tenodesis-10.5.17 by Jerri Palacios MD 03/23/2017 History of right shoulder ar throscopic rotator cuff repair, subacromial decompression, AC joint resection; open subpectoral biceps resection and transplantation 10/30/[address] 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 Hx of ESBL (extended spectru m beta-lactamase) producing bacteria infection from UTI Resolved Problems Problem Noted Date Diagnosed Date Resolved Date h/o right shoulder arthrosco pic rotator cuff repair, subacromial decompression acromioclavicular joint resection, open subpectoralis biceps resection transplantation DOS: 10/30/2008 by Suzanne 04/07/2019 1 Primary osteoarthritis of ri ght shoulder - advanced with posterior wear 04/07/2019 04/10/2023 Early osteoarthritis of left glenohumeral joint - moderate with neutral wear pattern 04/07/2019 04/10/2023 Early osteoarthritis of left glenohumeral joint 03/23/2017 09/03/2017 Impingement syndrome of left shoulder 02/02/2017 09/03/2017 Ganglion cyst in infraspinatus, left shoulder 02/03/20 17 09/03/2017 Nontraumatic tear of left rotator cuff 02/02/2017 09/03/2017 Tendinopathy of left biceps tendon 02/02/2017 09/03/2017 AC (acromioclavicular) arthritis 02/02/2017 09/03/2017 Tear of left rotator cuff 12/20/2016 Knee joint replacement by other means 08/14/2008 09/03/2017 Infected dental caries 03/11/200809/03 Arthropathy, unspecified, site unspecified 03/07/2007 09/03/2017 Secondary osteoarthritis of left shoulder 09/03/2017 Arthritis of left shoulder region 09/03/2017 Immunizations Name Administration Dates Next Due COVID-19 vaccine ([employer] NTech 30mcg/0.3mL) PF, MDV 08/03/2020,07/13/2020 HepA-HepB (Twinrix) 03/30/2004,05/27/2001,2000 Influenza, High-dose Quadriv alent Inactivated 03/29/2023,03/21/2021,05/15/2020 Influenza, IIV3 (Age >=3 years) 03/14/2008 Pneumococcal conj 7-Valent (Prevnar 7) 1 Td (Age >=7 Years) 03/30/2004 Typhoid (injectable) 02/01/2001 Zoster (Zostavax-ZVL, live) 12/06/2006, 6 Family History Medical History Relation Name Comments Heart Disease Father Cancer-breast Maternal Grandmother Unknown Mother in 40s of pneumonia Autoimmune disease Sister Tracey Colitis Relation Name Status Comments Father Maternal Grandmother Mother Sister Trcaey Alive Social History Tobacco Use Types Packs/Day Years Used Date Smoking Tobacco: Never Smokeless Tobacco: Never Alcohol Use Standard Drinks/Week Comments Yes 0 (1 standard drink = 0.6 oz pur e alcohol) 2/week Social Connections Answer Date Recorded Frequency of Communication with Friends and Fami ly Not on file 03/29/2023 Financial Resource Strain Answer Date R ecorded Difficulty of Paying Living Expenses Not on file 06/11/2021 Difficulty of Paying Living Expenses Not on file 06/11/2021 Sex and Gender Information Value Date Recorded Sex Assigned at Not on file Gender Identity Not on file Sexual Orientation Not on file Obstetrics History Last Filed Vital Signs Vital Sign Reading Time Taken Comments Blood Pressure 108/80 03/29/2023 3:54 PM CDT Pulse 78 03/29/2023 3:54 PM CDT Temperature 36.7 ??C (98.1 ??F) 09/19/2017 7:46 AM CD T Respiratory Rate 16 09/19/2017 7:46 AM CDT Oxygen Saturation 94% 03/29/2023 3:54 PM CDT Inhaled Oxygen Concentration - - Weight 110.1 kg (242 lb 11.2 oz) 03/29/2023 3:54 PM CDT Height 164 cm (5' 4.57) 03/29/2023 3:54 PM CDT Body Mass Index 40.93 03/29/2023 3:54 PM CDT Plan of Treatment Health Maintenance Due Date Last Done Comments Tdap 01/30/1951 Depression screening for age 12+ 1952 Medicare Wellness for age 65+ 2006 Pneumococcal series for age 65+ (1 of 1 - PCV) 2006 05/27/2001 Zoster (shingles) series for age 50+ (2 of 3) 01/31/2007 12/06/2006, 04/19/2006 Tetanus booster 03/30/2014 03/30/2004 BMI (ht and wt on same day) for age 18+ 03/29/2024 03/29/2023, 09/03/2017, 02/21/2017 DEXA/DXA scan for age 65+ Completed 01/15/2008 COVID-19 vaccine series Completed 03/29/20, 10/04/2021, 03/07/2021, Additional history exists Influenza for age 65+ Completed 03/29/2023 , 03/21/2021, 05/15/2020, Additional history exists Medical Devices Implanted Type Area Household Coordinator Device Identifier Shelf Expiration Date Model / Serial / Lot Compnt Fem Carla Ii [id number] - [id number] Implanted:Qty: 1 on 10/15/2007 at [facility] Ortho Total Joint Right: Knee [employer] 714-21157 # / / [id number] Baseplate Tibial Carla Ii [id number] Munoz[employer]Nephew - [id number] Implanted:Qty: 1 on 10/15/2007 at [facility] Ortho Total Joint Right: Knee [employer] [id number]# / / [id number] Compnt Patella 29mm Resurfacing Carla Ii [id number] [employer] - [id number] Implanted:Qty: 1 on 10/15/2007 at [facility] Ortho Total Joint Right: Knee [employer] [id number]# / / [id number] Cmnt Bone Surg Simplex - [id number] Implanted:Qty: 1 on 10/15/2007 at [facility] Right: Knee [employer] 6191-1- 0# / / [id number] Cmnt 1/2 Dosehowmedica - [id number] Implanted:Qty: 1 on 10/15/2007 at [facility] Right: Knee [employer] 6188-1- 0# / / [id number] Insert Cr Sz 3-4 13mm Deep Flexion Gii - [id number] Implanted:Qty: 1 on 10/15/2007 at [facility] Right: Knee [employer] [id number]# / / [id number] Shell Actab 58mm Pors W/Holes 6202-058-22 - [id number] Implanted:Qty: 1 on 03/11/2008 at [facility] Right: Hip [employer] 6202-58-2 2# / / [id number] Screw Bone 6.4qsd90pk Claudia - [id number] Implanted:Qty: 1 on 03/11/2008 at [facility] Right: Hip [employer] 6250-65-2 5# / / [id number] Screw Bone 6.5nyy35xs Claudia - [id number] Implanted:Qty: 1 on 03/11/2008 at [facility] Right: Hip [employer] 6250-65-2 5# / / [id number] Liner Poly 58x36 0 Deg Xlpe - [id number] Implanted:Qty: 1 on 03/11/2008 at [facility] Right: Hip [employer] 6305-58-3 6# / / [id number] Head Fem Short - [id number] Implanted:Qty: 1 on 03/11/2008 at [facility] Right: Hip [employer] 9026-36# / / [id number] Wedge Tag Acufex 3.7mm - [id number] Implanted:Qty: 1 on 10/30/2008 at [facility] Right: Shoulder [employer] 475474# / / [id number] Corkscrew Ftiii - [id number] Implanted:Qty: 1 on 10/30/2008 at [facility] Right: Shoulder [employer] AR-1928SF -3# / / [id number] Wedge Tag Acufex 3.7mm - [id number] Implanted:Qty: 1 on 10/30/2008 at [facility] Right: Shoulder [employer] 739278# / / [id number] Fibertak Suture [place] Implanted:Qty: 1 on 03/15/2017 by Jose Ramon Palacios MD at [facility] Left: Shoulder 10/08/2021 AR-3600-2 / / [id number] Description:FIBERTAK SUTURE ANCHOR Fibertak Rc Suture [place] Triple Loaded Implanted:Qty: 1 on 03/15/2017 by Jose Ramon Palacios MD at [facility] Left: Shoulder 12/08/2021 AR-3633 / / [id number] Description:FIBERTAK RC SUTU RE ANCHOR TRIPLE LOADED Cmnt Bone 40g Simplex P Atb Mvtobramycin - [id number] Implanted:Qty: 2 on 09/17/2017 by Jadiel Guaman MD at [facility] Left: Knee [employer] 03/10/2019 6197-9-01 0# / / [id number] Patella 31x9mm Triathlon Symmetric X3 - [id number] Implanted:Qty: 1 on 09/17/2017 by Jadiel Guaman MD at [facility] Left: Knee [employer] 03/27/2022 5550-G-31 9# / / [id number] Baseplate Tib Sz4 Triathlon Pe - [id number] Implanted:Qty: 1 on 09/17/2017 by Jadiel Guaman MD at [facility] Left: Knee [employer] 07/31/2022 5521-B-40 0# / / [id number] Fem Lt Sz3 Triathlon Cruc Ret Co Cr - [id number] Implanted:Qty: 1 on 09/17/2017 by Jadiel Guaman MD at [facility] Left: Knee [employer] 10/20/2021 5510-F-30 1# / / [id number] Insert Knee Sz4 11mm Triathloncruc Ret X3 - [id number] Implanted:Qty: 1 on 09/17/2017 by Jadiel Guaman MD at [facility] Left: Knee [employer] 04/30/2022 5530-G-41 1# / / [id number] Additional Health Concerns Infection Onset Date Last Indicated MDRO-GNB Comment:ESBL in urine-201403/15/2017 03/15/2017 Advance Directives Latest Code Status on File Code Status Date Activated Date Inactivated Comments Full Code 09/17/2017 4:43 PM 09/19/2017 1:37 PM Code Status History Code Status Date Activated Date Inactivated Comments Full Code 09/17/2017 9:50 AM 09/17/2017 4:42 PM Full Code 10/30/2008 12:39 PM 10/31/2008 1:14 PM Full Code 03/11/2008 8:23 PM 03/14/2008 4:36 PM Full Code 10/15/2007 1:21 PM 10/19/2007 4:08 PM Care Teams Senior Electronics Engineer Relationship Specialty Start Date End Date Mel Bahena MD [address] [place] [id number] PCP - General Internal Medicine 08/01/16
== END 2023-07-19 08:24 | disposition home or self-care (01) ==
LOC: NFLDREF 07-20 05:29
PROVIDERS: PCP Internal Medicine; Referring Provider Internal Medicine; Visit Provider Internal Medicine
DX: I10 Essential (primary) hypertension (principal)
CPT/HCPCS: 80048

== ENCOUNTER 2024-05-15 09:19 | Outpatient (CLI) | payer MEDICARE, OTHER, SELFPAY | END 2024-05-15 09:20 | disposition home or self-care (01) | PROVIDERS: PCP Internal Medicine; Visit Provider Internal Medicine | DX: I10 Essential (primary) hypertension (principal); R26.89 Other abnormalities of gait and mobility; E66.01 Morbid (severe) obesity due to excess calories; R63.5 Abnormal weight gain | CPT/HCPCS: 80053; 82607; 84165; 84443 ==

== ENCOUNTER 2024-08-09 22:10 | Outpatient (CLI) | payer MEDICARE, OTHER, SELFPAY | END 2024-08-09 22:11 | disposition home or self-care (01) | PROVIDERS: PCP Internal Medicine; Visit Provider Family Medicine | DX: R53.1 Weakness (principal) | CPT/HCPCS: A0998 ==

== ENCOUNTER 2024-11-24 10:15 | Outpatient (RCR) | payer MEDICARE, OTHER, SELFPAY ==
--- NOTE | 2024-06-18 11:59 | PT.OPEX ---
PT [facility] Eval PT [facility] Outpatient Eval Start: 06/02/24 14:58 Freq: Status: Active Protocol: Document 06/18/24 07:13 MLS (Rec: 06/18/24 11:57 MLS [id number]) E-signed By Rupali Mistry DPT Physical Therapy Outpatient Evaluation Insurance Information Recert Due Date 09/15/24 Insurance Name [employer],Medicare B Medical Diagnosis R26.89 other abnormalities of gait and mobility Treating Diagnosis Balance program LE strengthening Referring MD Dr. Josef Alexandra Preferred Name Krysta Alexandra Patient is an 84 year old female who presents to physical therapy with signs and symptoms consistent with LE weakness and impaired balance. She states that she has been having some balanced issues. 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 She states that this is her third attempt of trying to get stronger. She states that she has been taking care of her for 5 years. She states that she has hired some caregivers to help. 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 She states that her is totally dependent after 3 strokes. She states that she has had three falls while taking off her bathrobe/ nightgown and collapsed. She states that she didn't wobble but just went down to the ground. She states that she has not hurt herself. She states that she can't get up off the ground, but she has a floor employee relation manager if she gets on the ground, to lift her up. She states that she has a lot of pain in her knees if she kneels on them. She states that she needs a shoulder replacement on the right, but can't get one due to her home life. She reports that she sleeps in the recliner. Significant past medical history includes bilateral hip replacements, bilateral knee replacements, bilateral rotator cuff surgeries, hypertension controlled), neuropathy and edema in B feet and arthritis. Patient would like to achieve better balance through physical therapy sessions. 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 69 years 8.1 (7.1 ? 9.0) / 70 ? 79 years 9.2 (8.2 ? 10.2) / 80 ? 99 years 11.3 (10.0 ? 12.7) LLE MMT: Hip flexion: R 4-/5 L 4-/5 Hip abduction: R 4-/5 L 4-/5 Hip extension: R 4-/5 L 4-/5 Knee flexion: R 4-/5 L 4-/5 Knee extension: R 4-/5 L 4-/5 Access Code: [email or web address] URL: [email or web address] Date: 06/18/2024 Prepared by: Rupali Mistry Exercises - Supine Quadricep Sets - 1 x daily - 7 x weekly - 3 sets - 10 reps - Gluteal Sets - 1 x daily - 7 x weekly - 3 sets - 10 reps - Supine Bridge - 1 x daily - 7 x weekly - 3 sets - 10 reps - Active Straight Leg Raise with Quad Set - 1 x daily - 7 x weekly - 3 sets - 10 reps - Supine Heel Slide - 1 x daily - 7 x weekly - 3 sets - 10 reps - Seated Long Arc Quad - 1 x daily - 7 x weekly - 3 sets - 10 reps Functional Test Performed & Score Jara Balance Test: Assessment Assessment/Impression Pt is an 84 year old female who presents with concerns of LE weakness and impaired balance. Patient also has notable objective findings including limited ROM, tenderness to palpation, and decreased strength which are also likely contributing to the problem. Patient is a good candidate for skilled therapy to target deficits described above. Skilled PT intervention is necessary for use of therapeutic exercise manual therapy, neuromuscular re- education, gait training, and therapeutic activity. Functional impairments include difficulty with: standing, walking, exercising, dressing, and ADLs. See appropriate sections of PT eval for complete list of goals and POC . D/C plan and criteria is for pt to achieve the goals as listed below or until max rehab potential is met. Pt was agreeable with plan of care and goals established. Primary Functional Limitations standing walking dressing exercising ADLs Plan of Care Rehabilitation Potential Good Physical Therapy Goals Within 10-12 weeks: 1.Pt will demonstrate independence in performance of home exercise program with the use of video and/or handouts in order to optimize functional mobility and reduce risk for re-injury. 2.Pt will demonstrate consistent HEP compliance to ensure progress in reaching established goals during course of care. 3.Patient will be able to get dressed without a fall. 4.Patient will report pain levels <2/10 with all activities in order to improve functional mobility at home, work and during functional leisure activities. 5.Patient will be able to care for her without a loss of balance. 7.Patient will be able to bend and lift household items from the floor to shoulder height to perform ADLs without loss of balance. 8.Pt will exhibit 5 pt improvement in Jara balance test to demonstrate functional improvement and progress toward goals Coordination/Communication With Referral Source Treatment Plan/Direct Interventions Gait Training,Neuromuscular Re -ed,Therapeutic Activities, Therapeutic Exercises Patient Will Be Discharged From Therapy Independently Progressing Evaluation Billing Untimed Code Treatment Minutes 30 Complexity Low Certification Information Provider Signature Required Yes Provider Signature Shows Agreement With POC & Medical Necessity Physician NPI Number Write NPI# Here Physician Comment/Change : Physician Signature & Date Requested Please Sign/Date Here
== END 2025-03-24 23:59 | disposition home or self-care (01) ==
PROVIDERS: PCP Internal Medicine; Visit Provider Internal Medicine
DX: R26.89 Other abnormalities of gait and mobility (principal); R60.9 Edema, unspecified; I89.0 Lymphedema, not elsewhere classified; Z51.89 Encounter for other specified aftercare
CPT/HCPCS: 97110; 97140; 97161; 97166; 97530; 97535

== ENCOUNTER 2024-12-22 12:02 | Observation (INO) | payer MEDICARE, OTHER, SELFPAY ==
[2024-12-22] VITALS (25 sets, daily range): BP systolic 73–130; BP diastolic 42–89; PULSE 56–94; RESP 0–32; TEMP 36.3–36.6; O2SAT 73–99
--- OUTSIDE RECORDS SUMMARY | 2024-12-22 11:46 | XMS_ITS | Clinical Summary ---
Author Organization [facility] Address [address] [place] [address] Care Team Providers Care Life Skills Coach Name Role Phone Mel Bahena MD Primary Care Provider [phone] Allergies Active Allergy Reactions Criticality Noted Date Comments Propoxyphene-Acetamino phen Hallucinations 03/07/2007 Hallucinations Tolerates oxycodone Ibuprofen 11/09/2007 Tinnitis Naproxen Other - Describe In Comment Field 10/29/2008 Chemicalhepatit is Oxycodone-Acetaminophe n Hallucinations 10/15/2007 Salsalate Ototoxicity 10/29/2007 Acetaminophen 03/07/2007 hepatitis Hydrocodone-Acetaminop hen 03/07/2007 hallucinations Medications atenolol-chlort halidone, 50-25 mg, (TENORETIC 50) 50-25 mg tablet Take 0.5 tablets by mouth once daily. 0 09/03/2017 Active folic acid 400 mcg tablet Take 400 mcg by mouth once daily. Active venlafaxine (Effexor XR) 150 mg Extended-Releas e capsule Take 150 mg by mouth once daily with a meal. Active calcium phosphate dibas/vit D3 (VITAMIN D, WITH CALCIUM, ORAL) Take by mouth. 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 Hx of ESBL (extended spectru [...] 09/03/2017 Arthritis of left shoulder region 09/03/2017 Encounters Date Type Department Care Team Description 09/30/2024 Telephone [facility] [address] [place] [address] Jose Ramon Palacios MD Injection (Medication) from Last 3 Months Immunizations Immunization Administration Dates Next Due COVID-19 vaccine ([employer] NTech 30mcg/0.3mL) PF, MDV 08/03/2020,07/13/2020 HepA-HepB (Twinrix) [...] Friends and Fami ly Not on file 06/11/2021 Financial Resource Strain Answer Date R ecorded Difficulty of Paying Living Expenses Not on file 06/11/2021 Difficulty of Paying Living Expenses Not on file 06/11/2021 Comments No Sex and Gender Information Value Date Recorded Sex Assigned at Not on file Legal Sex 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 Gender Identity Not on file Sexual Orientation Not on file Obstetrics History Last Filed Vital Signs Vital Sign Reading Time Taken Comments Blood Pressure 108/80 03/29/2023 3:54 PM CDT Pulse 78 03/29/2023 3:54 PM CDT Temperature 36.7 C (98.1 F) 09/19/2017 7:46 AM CDT Respiratory Rate 16 09/19/2017 7:46 AM CDT Oxygen Saturation 94% 03/29/2023 3:54 PM CDT Inhaled Oxygen Concentration - - Weight 110.1 kg (242 lb 11.2 oz) 03/29/2023 3:54 PM CDT Height 164 cm (5' 4.57) 03/29/2023 3:54 PM CDT Body Mass Index 40.93 03/29/2023 3:54 PM CDT Plan of Treatment Health Maintenance Due Date Last Done Comments Depression screening for age 12+ 1952 Pneumococcal series for age 50+ (1 of 1 - PCV) 1991 05/27/2001 Medicare Wellness for age 65+ 2006 Zoster (shingles) series for age 50+ (2 of 3) 01/31/2007 12/06/2006, 04/19/2006 Tetanus booster 03/30/2014 03/30/2004 RSV vaccine for adults or (1 - 1-dose 75+ series) 01/30/2016 BMI (ht and wt on same day) for age 18+ 03/29/2024 03/29/2023, 09/03/2017, 02/21/2017 COVID-19 vaccine series ( season) 2024 03/20/2024, 03/29/2023, 10/04/2021, Additional history exists Influenza Vaccine (#1) 2025 03/14/2008 Hepatitis B series for 19+ Completed 03/30, 05/27/2001, 02/06/2001 DEXA/DXA scan for age 65+ Completed 01/15/2008 Medical Devices Implanted Type Area Contract Clerk Device Identifier Shelf Expiration Date Model / Serial / Lot Compnt Fem Carla Ii [id number] - [id number] Implanted:Qty: 1 on 10/15/2007 at [facility] Ortho Total Joint Right: Knee [employer] 71- # / / [id number] Baseplate Tibial Carla Ii [id number] Munoz&Nephew - [id number] Implanted:Qty: 1 on 10/15/2007 at [facility] Ortho Total Joint Right: Knee [employer] [id number]# / / [id number] Compnt Patella 29mm Resurfacing Carla Ii [id number] Munoz - [id number] Implanted:Qty: 1 on 10/15/2007 at [facility] Ortho Total Joint Right: Knee [employer] [id number]# / / [id number] Cmnt Bone Surg Simplex - [id number] Implanted:Qty: 1 on 10/15/2007 at [facility] Right: Knee [employer] 6191-1- 0# / / [id number] Cmnt 1/2 Dosehowmedica - [id number] Implanted:Qty: 1 on 10/15/2007 at [facility] Right: Knee [employer] 6188-1-01 0# / / [id number] Insert Cr Sz 3-4 13mm Deep Flexion [facility] - [id number] Implanted:Qty: 1 on 10/15/2007 at [facility] Right: Knee [employer] [id number]# / / [id number] Shell Actab 58mm Pors W/Holes 6202-058-22 - [id number] Implanted:Qty: 1 on 03/11/2008 at [facility] Right: Hip [employer]ia [employer] 6202-58-2 2# / / [id number] Screw Bone 6.0kfu28xw Claudia - [id number] Implanted:Qty: 1 on 03/11/2008 at [facility] Right: Hip [employer] 6250-65-2 5# / / [id number] Screw Bone 6.5oow92mv Claudia - [id number] Implanted:Qty: 1 on 03/11/2008 at [facility] Right: Hip [employer] 6250-65-2 5# / / [id number] Liner Poly 58x36 0 Deg Xlpe - [id number] Implanted:Qty: 1 on 03/11/2008 at [facility] Right: Hip [employer] 6305-58-3 6# / / [id number] Head Fem Short - [id number] Implanted:Qty: 1 on 03/11/2008 at [facility] Right: Hip [employer] 9026-36# / / [id number] Wedge Tag Acufex 3.7mm - [id number] Implanted:Qty: 1 on 10/30/2008 at [facility] Right: Shoulder [employer] 545141# / / [id number] Corkscrew Ftiii - [id number] Implanted:Qty: 1 on 10/30/2008 at [facility] Right: Shoulder [employer] AR-1928SF -3# / / [id number] Wedge Tag Acufex 3.7mm - [id number] Implanted:Qty: 1 on 10/30/2008 at [facility] Right: Shoulder [employer] 023201# / / [id number] Fibertak Suture [place] Implanted:Qty: 1 on 03/15/2017 by Jose Ramon Palacios MD at [facility] Left: Shoulder 10/08/2021 AR-3600-2 / / [id number] Description:FIBERTAK SUTURE ANCHOR Fibertak Rc Suture [place] Triple Loaded Implanted:Qty: 1 on 03/15/2017 by Jose Ramon Palacios MD at [facility] Left: Shoulder 12/08/2021 AR-3633 / / [id number] Description:FIBERTAK RC SUTU RE ANCHOR TRIPLE LOADED Cmnt Bone 40g Simplex P Atb Mvtobramycin - [id number] Implanted:Qty: 2 on 09/17/2017 by Jadiel Guaman MD at [facility] Left: Knee [employer] 03/10/2019 6197-9-01 0# / / [id number] Patella 31x9mm Triathlon Symmetric X3 - [id number] Implanted:Qty: 1 on 09/17/2017 by Jadiel Guaman MD at [facility] Left: Knee [facility] [facility] 03/27/2022 5550-G-31 9# / / [id number] Baseplate Tib Sz4 Triathlon Pe - [id number] Implanted:Qty: 1 on 09/17/2017 by Jadiel Guaman MD at [facility] Left: Knee [employer] [facility] 07/31/2022 5521-B-40 0# / / [id number] Fem Lt Sz3 Triathlon Cruc Ret Co Cr - [id number] Implanted:Qty: 1 on 09/17/2017 by Jadiel Guaman MD at [facility] Left: Knee [facility] 10/20/2021 5510-F-30 1# / / [id number] Insert Knee Sz4 11mm Triathloncruc Ret X3 - [id number] Implanted:Qty: 1 on 09/17/2017 by Jadiel Guaman MD at [facility] Left: Knee [facility] [facility] 04/30/2022 5530-G-41 1# / / [id number] Procedures Procedure Name Priority Date/Time Associated Diagnosis Comments SCAN-BONE DENSITOMETRY DEXA 01/15/2008 12:00 AM CDT from Last 3 Months or Most Recently Relevant to Health Maintenance Results * SCAN-BONE DENSITOMETRY DEXA (01/15/2008 12:00 AM CDT) Anatomical Region Laterality Modality Other Narrative Procedure Note Scanner - 01/15/2008 12:00 AM CDT us Scanner OTHER Final Result from Last 3 Months or Most Recently Relevant to Health Maintenance Additional Health Concerns Infection Onset Date Last Indicated ESBL Comment:ESBL in urine-201403/15/2017 03/15/2017 Insurance MEDICARE PART A HB ONLY MEDICARE PART B HB ONLY HP MEDICARE PB ONLY Advance Directives * Full Code (Latest Code Status on File) Date Activated Date Inactivated Comments 09/17/2017 4:43 PM 09/19/2017 1:37 PM * Full Code Date Activated Date Inactivated Comments 09/17/2017 9:50 AM 09/17/2017 4:42 PM * Full Code Date Activated Date Inactivated Comments 10/30/2008 12:39 PM 10/31/2008 1:14 PM * Full Code Date Activated Date Inactivated Comments 03/11/2008 8:23 PM 03/14/2008 4:36 PM * Full Code Date Activated Date Inactivated Comments 10/15/2007 1:21 PM 10/19/2007 4:08 PM Care Teams Life Skills Coach Relationship Specialty Start Date End Date Mel Bahena MD [address] [place] [address] PCP - General Internal Medicine 08/01/16
--- NOTE | 2024-12-22 12:12 | CRLHL7_ITS ---
For Patients: As a result of the Cures Act, medical imaging exams and procedure reports are released immediately into your electronic medical record. You may view this report before your referring provider. If you have questions, please contact your health care provider. INDICATION: Fall COMPARISON: None. TECHNIQUE: Two radiographic view(s) of the right knee. FINDINGS: No evident acute displaced fracture. Status post total knee arthroplasty. There is 3 millimeters of periprosthetic lucency associated with the anterior aspect of the femoral prosthesis. No substantial joint effusion. IMPRESSION: 1. No acute osseous findings. 2. Status post total knee arthroplasty. There is 3 mm of periprosthetic lucency associated with the anterior aspect of the femoral prosthesis. Dictated by Ang uDnbar MD @ 12/22/2024 2:10:28 PM (Electronically Signed)
--- NOTE | 2024-12-22 12:12 | CRLHL7_ITS ---
For Patients: As a result of the Century Cures Act, medical imaging exams and procedure reports are released immediately into your electronic medical record. You may view this report before your referring provider. If you have questions, please contact your health care provider. Indication: Fall, hit head, neck pain Technique: Volumetric multidetector CT images of the cervical spine were obtained without the administration of IV contrast. Comparison: CT cervical spine April 07, 2015 Findings: The cervical vertebral body heights are grossly maintained with endplate subchondral cystic changes. There is mild straightening and reversal of the normal cervical lordosis. There is no displaced fracture or dislocation. There is moderate multilevel degenerative disc disease with disc height loss and marginal osteophyte formation. Moderate to severe facet arthrosis and degenerative changes appreciated within the atlantoaxial joint. The lung apices demonstrate mild pulmonary vascular congestion. Impression: Moderate to severe degenerative changes of the cervical spine without acute osseous abnormality. Please note that all CT scans at this facility use dose modulation, iterative reconstruction, and/or weight-based dosing when appropriate to reduce radiation dose to as low as reasonably achievable. Dictated by Mark Ivory MD @ 12/22/2024 1:23:08 PM (Electronically Signed)
--- NOTE | 2024-12-22 12:12 | CRLHL7_ITS ---
For Patients: As a result of the Century Cures Act, medical imaging exams and procedure reports are released immediately into your electronic medical record. You may view this report before your referring provider. If you have questions, please contact your health care provider. Indication: Fall, hit head Technique: Volumetric multidetector CT images of the head were obtained without the administration of low osmolar intravenous contrast. Comparison: None available Findings: There is no intra-axial or extra-axial fluid collection. There is no mass effect or midline shift. There is age-related cortical atrophy with mild sulcal widening and ex vacuo dilatation of the lateral ventricles. There are chronic small vessel disease changes in the subcortical and periventricular white matter without lost serrano-white differentiation. The orbits and their contents are grossly within normal limits. There is mild frontal/supraorbital scalp hematoma. The bony calvarium is otherwise intact. The paranasal sinuses are clear. The mastoid air cells are well aerated. Impression: Minimal frontal supraorbital soft tissue hematoma. 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 Please note that all CT scans at this facility use dose modulation, iterative reconstruction, and/or weight-based dosing when appropriate to reduce radiation dose to as low as reasonably achievable. Dictated by Mark Ivory MD @ 12/22/2024 1:25:28 PM (Electronically Signed)
--- NOTE | 2024-12-22 12:12 | CRLHL7_ITS ---
For Patients: As a result of the Century Cures Act, medical imaging exams and procedure reports are released immediately into your electronic medical record. You may view this report before your referring provider. If you have questions, please contact your health care provider. INDICATION: Fall. Prior hip arthroplasty. TECHNIQUE: Noncontrast CT of the left hip. COMPARISON: Radiographs from 02/28/2024. FINDINGS: There is a left total hip arthroplasty. There is an acute periprosthetic fracture associated with the femoral component. Fracture involves the greater trochanter and extends into the intertrochanteric region. At the anterior intertrochanteric position, there is approximately 1.3 centimeters of maximal displacement. The fracture does not extend to involve the subtrochanteric femur. The femoral component does not appear frankly detached. No acute periprosthetic fracture associated with the acetabular component. On the contralateral right side, there is a total hip arthroplasty. Advanced degenerative change of the sacroiliac joints bilaterally. Degenerative changes of the pubic symphysis. Degenerative changes within the lumbar spine No localized fluid collection or space-occupying hematoma. There is severe atrophy of the right-sided iliopsoas muscle. Severe atrophy of the gluteus minimus muscle on the right and a portion of the anterior gluteus medius muscle. Severe atrophy of the left gluteus minimus muscle and mild atrophy of the left gluteus medius muscle. Small fat containing umbilical hernia. Colonic diverticulosis. IMPRESSION: 1. Left total hip arthroplasty. 2. Acute periprosthetic fracture associated with the femoral component. Fracture involves the greater tuberosity and extends into the intertrochanteric region. 1.3 centimeters of maximal displacement at the anterior intertrochanteric positioned. No subtrochanteric extension. Femoral component does not appear frankly detached. 3. No acute periprosthetic fracture associated with the acetabular component. Please note that all CT scans at this facility use dose modulation, iterative reconstruction, and/or weight-based dosing when appropriate to reduce radiation dose to as low as reasonably achievable. Dictated by [place] MD @ 12/22/2024 1:14:42 PM (Electronically Signed)
[2024-12-22] MEDS: diazePAM 5 MG/ML inj IV (12:30)
--- NOTE | 2024-12-22 13:28 | CRLHL7_ITS ---
For Patients: As a result of the Cures Act, medical imaging exams and procedure reports are released immediately into your electronic medical record. You may view this report before your referring provider. If you have questions, please contact your health care provider. INDICATION: Fall COMPARISON: Same day CT of the hip TECHNIQUE: Single view of the pelvis and two views of the left hip FINDINGS: Acute left proximal femoral periprosthetic fracture which is better visualized on the same-day CT. Status post bilateral total hip arthroplasty. Moderate degenerative change of the sacroiliac joints. Partially imaged degenerative change of the lumbosacral spine. Severe degenerative change of the pubic symphysis. IMPRESSION: Acute left proximal femoral periprosthetic fracture which is better visualized on the same-day CT. Dictated by Ang Dunbar MD @ 12/22/2024 2:14:12 PM (Electronically Signed)
--- NOTE | 2024-12-22 13:48 | ED.FALL ---
HPI - Fall General Date Seen: 12/22/24 Chief Complaint: Fall/Minor Trauma Stated Complaint: Fall Time Seen by Provider: 12/22/24 12:05 Source: patient Mode of arrival: other Limitations: no limitations History of Present Illness HPI Narrative: Patient is a 4-year-old female who fell in the hallways this hospital. She required multiple people to help her into a bed. They had to place her on a backboard to the after up. She is unable to put any weight on her left hip. She has fractured his hip in dislocated multiple times and has a previous hip replacement. She was given fentanyl and Dilaudid for pain control during the rapid response. Denies any other injuries other than does admit to hitting her head. Denies any chest pain, shortness of breath, abdominal pain, back pain. Denies any numbness to her lower extremities. Is having difficulty moving either leg due to her right knee and left hip pain. Pain is better when she sits still. Is complaining about some neck pain Related Data Home Medications ?Medication ?Instructions ?Recorded ?Confirmed cholecalciferol (vitamin D3) 25 25 mcg PO DAILY 04/20/22 12/22/24 mcg (1,000 unit) capsule ascorbic acid (vitamin C) 1 tab PO DAILY 07/26/23 12/22/24 multivitamin 1 tab PO QAM 07/26/23 12/22/24 melatonin 3 mg capsule 3 mg PO HS 09/23/24 12/22/24 atenolol 50 mg-chlorthalidone 25 0.5 tab PO DAILY 12/22/24 12/22/24 mg tablet venlafaxine 75 mg capsule,extended 75 mg PO DAILY 12/22/24 12/22/24 release 24 hr Previous Rx's ?Medication ?Instructions ?Recorded tramadol 50 mg tablet 50 mg PO Q12H PRN pain #20 tabs 09/23/24 venlafaxine 150 mg 150 mg PO QAM #90 caps 09/23/24 capsule,extended release 24 hr Allergies Allergy/AdvReac Type Severity Reaction Status Date / Time hydrocodone (From Vicodin) Allergy Unknown Hallucinati Verified 12/22/24 12:19 ng naproxen Allergy Unknown Chemical Verified 12/22/24 12:19 Hepatitis propoxyphene (From Allergy Unknown Hallucinati Verified 12/22/24 12:19 Darvocet-N) ng salsalate Allergy Unknown Ototoxicity Verified 12/22/24 12:19 acetaminophen Allergy Chemical Verified 12/22/24 12:19 Hepatitis latex Allergy burning, Verified 12/22/24 12:19 reddness Review of Systems Status of ROS: Reports: 10 or more systems reviewed and unremarkable except as noted in History and below [facility] Medical History History of migraine ?Z86.69 - Personal history of other diseases of the nervous system and sense organs (ICD-10) Surgical History History of carpal tunnel surgery ?Z98.890 - Other specified postprocedural states (ICD-10) Status post total right knee replacement (~2008) ?Z96.651 - Presence of right artificial knee joint (ICD-10) History of tonsillectomy and adenoidectomy ?Z90.89 - Acquired absence of other organs (ICD-10) History of thyroid nodule ?Z86.39 - Personal history of other endocrine, nutritional and metabolic disease (ICD-10) History of repair of rotator cuff ?Z98.890 - Other specified postprocedural states (ICD-10) History of total knee replacement ?Z96.659 - Presence of unspecified artificial knee joint (ICD-10) History of hip replacement ?Z96.649 - Presence of unspecified artificial hip joint (ICD-10) Social History Narrative: 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 What is your current living situation?: I presently have a place to live Problems where you live: no known problems In the past 12 months, utilities in danger of being shut off: no In past 12 months, lack of transportation kept you from medical appts, meetings, work, or getting things needed for daily living: no In the past 12 mos, have been you worried that your food would run out before you had money to buy more?: never true In the past 12 mos, the food you bought just didn't last and you didn't have money to buy more?: never true Smoking Status: Never smoker Do you use any of these nicotine containing products: None Second hand tobacco smoke exposure: No How often do you have a drink containing alcohol: never AUDIT-C Alcohol total score: 0 Non-prescribed substance use: denies use How often does anyone, including family, friends and others, physically hurt you: never How often does anyone, including family, friends and others, insult or talk down to you: never How often does anyone, including family, friends and others, threaten you with harm: never How often does anyone, including family, friends and others, scream or curse at you: never Exam Narrative: Exam Narrative: Const: Well-nourished, Well-developed, in severe distress Eyes: PERRL, no conjunctival injection, and symmetrical lids HENT: Atraumatic external nose and ears. Moist mucous membranes. Neck: Symmetric, trachea midline, No thyromegaly. CVS: RRR, No murmurs or gallops. Peripheral pulses 2+ and equal in all extremities RESP: Unlabored respiratory effort. Clear to auscultation bilaterally. GI: Nontender/Nondistended, No rebound or guarding. MSK: Notable pain to left hip and right knee. Unable to move either. Tenderness to left groin. No back tenderness or cervical spine tenderness. No tenderness noted to the chest wall Skin: Warm, Dry. No rashes or lesions. Neuro: Normal Muscle tone, No focal neurological deficits. Psych: Awake, Alert, & Oriented x3. Appropriate mood and affect. Const: Vital Signs, click to edit/add: Vital Signs - 24 hr 12/22/24 12:15 12/22/24 12:49 Temperature 97.3 F L Pulse Rate [Pulse Oximeter] 88 Respiratory Rate 20 Blood Pressure [Ri ght Upper Arm] 115/89 Pulse Oximetry 95 73 L Oxygen Delivery Me thod Room Air Room Air Oxygen Flow Rate 4 Course Vital Signs Vital signs: Initial Vital Signs Temperature 97.3 F L 12/22/24 12:15 Temperature Source Temporal Artery Scan 12/22/24 12:15 Pulse Rate 88 12/22/24 12:15 Respiratory Rate 20 12/22/24 12:15 Blood Pressure 115/89 12/22/24 12:15 Blood Pressure Mean 97 12/22/24 12:15 Pulse Oximetry 95 12/22/24 12:15 Oxygen Delivery Method Room Air 12/22/24 12:15 Vital Signs Temperature 97.3 F L 12/22/24 12:15 Pulse Rate 88 12/22/24 12:15 Respiratory Rate 20 12/22/24 12:15 Blood Pressure 115/89 12/22/24 12:15 Pulse Oximetry 95 12/22/24 12:15 Oxygen Delivery Method Room Air 12/22/24 12:15 Temperature 97.3 F L 12/22/24 12:15 Pulse Rate 88 12/22/24 12:15 Respiratory Rate 20 12/22/24 12:15 Blood Pressure 115/89 12/22/24 12:15 Pulse Oximetry 73 L 12/22/24 12:49 Oxygen Delivery Method Room Air 12/22/24 12:49 Oxygen Flow Rate 4 12/22/24 12:49 Medications Administered Medications: Discontinued Medications Generic Name Dose Route Start Last Admin Trade Name Freq PRN Reason Stop Dose Admin Diazepam 5 mg 12/22/24 12:19 12/22/24 12:30 Diazepam 5 Mg/Ml Inj IV 12/22/24 12:20 2.5 mg ONCE ONE Administration Fentanyl 50 mcg 12/22/24 11:43 12/22/24 11:45 Fentanyl 100 Mcg/2 Ml Inj IV 12/22/24 11:44 50 mcg ONCE ONE Administration Fentanyl 50 mcg 12/22/24 12:26 12/22/24 11:50 Fentanyl 100 Mcg/2 Ml Inj IVP 12/22/24 12:27 50 mcg ONCE ONE Administration Hydromorphone HCl 0.5 mg 12/22/24 12:00 12/22/24 11:54 Hydromorphone 0.5 Mg/0.5 Ml Inj IV 12/22/24 12:01 0.5 mg ONCE ONE Administration Hydromorphone HCl 0.5 mg 12/22/24 12:12 12/22/24 11:58 Hydromorphone 0.5 Mg/0.5 Ml Inj IVP 12/22/24 12:13 0.5 mg ONCE ONE Administration Ketorolac Tromethamine 15 mg 12/22/24 13:08 12/22/24 13:18 Ketorolac 15 Mg/Ml Inj IVP 12/22/24 13:09 15 mg ONCE ONE Administration MDM - Fall MDM Narrative Medical decision making narrative: Patient is an 84-year-old female presenting to the emergency department after a fall. Does seem likely she has a hip fracture. Will give her some Valium due to her anxiety right now and some more Dilaudid for pain. Will go straight to CT scan of the head, cervical spine, hip. Will also do an x-ray of the right knee. The right knee x-ray will take longer right now as the every difficulty positioning her. CT scan of her head and cervical spine returned showing no concerning abnormalities. She has full range of motion of her neck and her C-spine was cleared. CT of the left hip shows a acute periprosthetic fracture some through the femoral component. We spoke to orthopedics who recommends a hip x-ray for evaluation. This will be ordered will be done along with the knee x-ray. She was having more pain in Toradol was given. X-ray of the right knee shows some periprosthetic lucency but Orthopedics not think this is an acute fracture. Patient is now having minimal pain to the knee. X-ray of the hip does appear to show this is a stable fracture and surgery is not necessary. Due to that she can stay here in [place]. Basic labs were done showing no concerning abnormalities. Patient is unable to ambulate due to pain and will be admitted. Lab Data Labs: Lab Results 12/22/24 Range/Units 13:56 WBC 8.74 (4.50-11.00) K/uL RBC 4.68 (4.00-5.20) m/uL Hgb 14.6 (12.0-16.0) gm/dL Hct 44.6 (33.0-51.0) % MCV 95 (80-100) fL MCH 31 (26-34) pg MCHC 33 (32-36) gm/dL RDW Coeff of Mike 13.8 (11.5-15.5) % Plt Count 196 (140-440) K/uL Neut % (Auto) 72.2 H (42.0-72.0) % Lymph % (Auto) 12.6 L (20-44) % Wilkes % (Auto) 11.7 H (0.0-11.0) % Eos % (Auto) 2.2 (0.0-7.0) % Baso % (Auto) 0.7 (0.0-3.0) % Neut # (Auto) 6.30 (1.7-7.0) K/uL Lymph # (Auto) 1.10 (0.90-2.90) K/uL Wilkes # (Auto) 1.00 H (0.00-0.90) K/UL Eos # (Auto) 0.19 (0.00-0.50) K/uL Baso # (Auto) 0.06 (0.00-0.30) K/uL Abs Immat Gran (auto) 0.05 (0.00-0.30) K/uL Imm/Tot Granulo (auto) 0.6 % Sodium 138 (135-149) mmol/L Potassium 3.3 L (3.6-5.1) mmol/L Chloride 103 (96-114) mmol/L Carbon Dioxide 27 (20-32) mmol/L Anion Gap 8 (7-15) mEq/L BUN 26 (7-30) mg/dL Creatinine 0.8 (0.5-1.5) mg/dL Estimated GFR 73 ml/min Glucose 106 (60-115) mg/dL Calcium 9.8 (8.4-10.6) mg/dL Imaging Data CT scan head: Attestation: I have reviewed the pertinent imaging results. Radiologist's impression: Minimal frontal supraorbital soft tissue hematoma. 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 Please note that all CT scans at this facility use dose modulation, iterative reconstruction, and/or weight-based dosing when appropriate to reduce radiation dose to as low as reasonably achievable. Dictated by Mark Ivory MD @ 12/22/2024 1:25:[address] scan cervical spine: Attestation: I have reviewed the pertinent imaging results. Radiologist's impression: Moderate to severe degenerative changes of the cervical spine without acute osseous abnormality. Please note that all CT scans at this facility use dose modulation, iterative reconstruction, and/or weight-based dosing when appropriate to reduce radiation dose to as low as reasonably achievable. Dictated by Mark Ivory MD @ 12/22/2024 1:23:[address] scan left hip: Attestation: I have reviewed the pertinent imaging results. Radiologist's impression: 1. Left total hip arthroplasty. 2. Acute periprosthetic fracture associated with the femoral component. Fracture involves the greater tuberosity and extends into the intertrochanteric region. 1.3 centimeters of maximal displacement at the anterior intertrochanteric positioned. No subtrochanteric extension. Femoral component does not appear frankly detached. 3. No acute periprosthetic fracture associated with the acetabular component. Please note that all CT scans at this facility use dose modulation, iterative reconstruction, and/or weight-based dosing when appropriate to reduce radiation dose to as low as reasonably achievable. Dictated by [place] Whitney MD @ 12/22/2024 1:14:42 PM X-ray hip: Attestation: I have reviewed the pertinent imaging results. Radiologist's impression: Acute left proximal femoral periprosthetic fracture which is better visualized on the same-day CT. Dictated by Ang Dunbar MD @ 12/22/2024 2:14:12 PM X-ray right knee: Attestation: I have reviewed the pertinent imaging results. Radiologist's impression: 1. No acute osseous findings. 2. Status post total knee arthroplasty. There is 3 mm of periprosthetic lucency associated with the anterior aspect of the femoral prosthesis. Dictated by Ang Dunbar MD @ 12/22/2024 2:10:28 PM Discharge Plan Discharge Clinical Impression: Closed fracture of left hip Qualifiers: Encounter type: initial encounter Qualified Code(s): S72.002A - Fracture of unspecified part of neck of left femur, initial encounter for closed fracture Patient Disposition: Admitted As Observation Condition: Stable
[2024-12-22 14:17] LABS: Hematocrit 44.6 % (33.0-51.0); Hemoglobin* 14.6 gm/dL (12.0-16.0); Immature Granulocytes Abs Auto 0.05 K/uL (0.00-0.30); Immature Granulocytes Pct Auto 0.6 %; Lymphocytes Absolute Auto 1.10 K/uL (0.90-2.90); Mean Corpuscular HGB Conc 33 gm/dL (32-36); Mean Corpuscular Hemoglobin 31 pg (26-34); Mean Corpuscular Volume 95 fL (80-100); RDW Coefficient of Variation % 13.8 % (11.5-15.5); Red Blood Count 4.68 m/uL (4.00-5.20); White Blood Count* 8.74 K/uL (4.50-11.00)
[2024-12-22 14:30] LABS: Chloride* 103 mmol/L (96-114); Potassium* 3.3 mmol/L (3.6-5.1); Sodium* 138 mmol/L (135-149)
[2024-12-22 14:33] LABS: Anion Gap 8 mEq/L (7-15); Blood Urea Nitrogen* 26 mg/dL (7-30); Carbon Dioxide* 27 mmol/L (20-32); Creatinine* 0.8 mg/dL (0.5-1.5); Estimated Glomerular Filt Rate 73 ml/min
[2024-12-22 14:34] LABS: Calcium* 9.8 mg/dL (8.4-10.6); Glucose* 106 mg/dL (60-115)
[2024-12-22 14:38] LABS: Slide Review Reflex No
--- NOTE | 2024-12-22 16:03 | CRLHL7_ITS ---
For Patients: As a result of the Century Cures Act, medical imaging exams and procedure reports are released immediately into your electronic medical record. You may view this report before your referring provider. If you have questions, please contact your health care provider. INDICATION: Hypoxia TECHNIQUE: Chest radiograph 1 view COMPARISON: 08/11/2016 FINDINGS: The sensitivity and specificity of the exam are moderately limited by the patient`s body habitus. Mediastinum: The mediastinum is normal in appearance. The heart silhouette is normal in size and morphology. Lung: Both lungs are unremarkable in appearance. No sign of pleural effusion seen. No pneumothorax is identified. Bone and Soft tissue: Unremarkable for age. IMPRESSION: 1. No acute cardiopulmonary disease is seen. Dictated by: Manuel Tamayo MD @ 12/22/2024 16:33:59 (Electronically Signed)
--- NOTE | 2024-12-22 16:12 | PM.IMHP1 ---
Assessment and Plan Assessment and plan (1) Closed fracture of left hip: Problem comment: Conservative/non operative management. Toe-touch weight-bearing. PT and OT evaluation. Cutting Table Operator to address disposition planning Status: Acute (2) Hypoxia: Problem comment: Requiring 3 L of oxygen per nasal cannula to maintain O2 sats above 90%. Not dyspneic. No previous history of heart or lung disease causing respiratory problems. Has received moderate doses of opioids likely contributing to her hypoxia. Suspect sleep apnea also contributing. Caution with opioids and oxygen. Check VBG. Status: Acute (3) Situational depression: Problem comment: On venlafaxine. 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 Taking 1500 mg a day. Higher doses cause diarrhea. Status: Acute (6) Osteoarthritis involving multiple joints on both sides of body: Problem comment: History of Bilateral hip replacements, bilateral knee replacements. In need of bilateral shoulder replacements. Status: Acute (7) Obstructive sleep apnea: Problem comment: Clinically suspected. Likely contributing to hypoxia with current hip fracture and opioid treatment. Caution with opioids, sedation and oxygen. Check VBG Status: Suspected Plan 84-year-old female admitted to the hospital for ongoing evaluation management of periprosthetic hip fracture and hypoxia. Total Time Spent Total Time Spent: Total time spent today is 80 minutes in reviewing outside records, coordination of care, discussion with patient and other providers ongoing evaluation management of patient's injury as well as her 's ongoing care needs. Hospitalist- H&P: HPI History of Present Illness Date Seen: 12/22/24 Chief complaint: Fall Narrative: Wendi Polanco is a 84 year old female admitted through the emergency department after injuring her left hip when she fell today. She was visiting [facility] to get a meal from the cafeteria. She reports she just tripped and fell. She she reports no loss of consciousness. No head injury. She reports after her fall that her left hip has been very painful. She also is having some pain in her right knee and both shoulders. She tells me the right knee and both shoulders have been chronically painful because of previous injuries, rotator cuff tears, bicep tendon tears and ongoing need for her to be a caregiver for her and assist in transferring him bed to chair. The primary concern is her left hip which has been shown to have a periprosthetic fracture of the greater trochanter. She reports she cannot tolerate motion or any weight-bearing in her left hip. Prior to her fall she reports she was otherwise feeling well except for her chronic orthopedic problems. She reports she needs both shoulders replaced but cannot have that done given the other circumstances in her life as a caregiver for her . She is most concerned about who will provide care for him with her new femur fracture and disability. Review of Systems Narrative: No other recent illness or injury except as noted above Medical Decision Making Medical Decision Making Has patient completed a Health Care Directive: Yes [facility] Medical History (Updated 12/22/24 @ 16:34 by Lamin Santo MD) Dependent edema ?R60.9 - Edema, unspecified (ICD-10) Essential hypertension ?I10 - Essential (primary) hypertension (ICD-10) Homocysteinemia ?R79.83 - Abnormal findings of blood amino-acid level (ICD-10) Persistent insomnia ?G47.00 - Insomnia, unspecified (ICD-10) Stress incontinence ?N39.3 - Stress incontinence (female) (male) (ICD-10) Osteoarthritis involving multiple joints on both sides of body ?M15.9 - Polyosteoarthritis, unspecified (ICD-10) Lymphedema ?I89.0 - Lymphedema, not elsewhere classified (ICD-10) Pre-diabetes ?R73.03 - Prediabetes (ICD-10) History of migraine ?Z86.69 - Personal history of other diseases of the nervous system and sense organs (ICD-10) Surgical History History of carpal tunnel surgery ?Z98.890 - Other specified postprocedural states (ICD-10) Status post total right knee replacement (~2008) ?Z96.651 - Presence of right artificial knee joint (ICD-10) History of tonsillectomy and adenoidectomy ?Z90.89 - Acquired absence of other organs (ICD-10) History of thyroid nodule ?Z86.39 - Personal history of other endocrine, nutritional and metabolic disease (ICD-10) History of repair of rotator cuff ?Z98.890 - Other specified postprocedural states (ICD-10) History of total knee replacement ?Z96.659 - Presence of unspecified artificial knee joint (ICD-10) History of hip replacement ?Z96.649 - Presence of unspecified artificial hip joint (ICD-10) Family History (Updated 12/22/24 @ 16:20 by Lamin Santo MD) Father Heart disease Sister Colitis Social History Narrative: She lives at home with her . 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 They have hired in-home healthcare assistance to be present for several hours each day. Her is wheelchair-bound due to prior strokes. He transfers from bed to chair with assist though she finds this increase in the difficult with her bad shoulders. He is transitioning to in-home palliative care. Her code status is DNR. Her healthcare power of oil burner journeyman is her son's Jael. She does not smoke. She does not drink alcohol What is your current living situation?: I presently have a place to live Problems where you live: no known problems In the past 12 months, utilities in danger of being shut off: no In past 12 months, lack of transportation kept you from medical appts, meetings, work, or getting things needed for daily living: no In the past 12 mos, have been you worried that your food would run out before you had money to buy more?: never true In the past 12 mos, the food you bought just didn't last and you didn't have money to buy more?: never true Smoking Status: Never smoker Do you use any of these nicotine containing products: None Second hand tobacco smoke exposure: No How often do you have a drink containing alcohol: never AUDIT-C Alcohol total score: 0 Non-prescribed substance use: denies use How often does anyone, including family, friends and others, physically hurt you: never How often does anyone, including family, friends and others, insult or talk down to you: never How often does anyone, including family, friends and others, threaten you with harm: never How often does anyone, including family, friends and others, scream or curse at you: never Meds Home Medications and Allergies Home Medications ?Medication ?Instructions ?Recorded ?Confirmed ?Type cholecalciferol (vitamin D3) 25 25 mcg PO DAILY 04/20/22 12/22/24 History mcg (1,000 unit) capsule ascorbic acid (vitamin C) 1 tab PO DAILY 07/26/23 12/22/24 History multivitamin 1 tab PO QAM 07/26/23 12/22/24 History melatonin 3 mg capsule 3 mg PO HS 09/23/24 12/22/24 History tramadol 50 mg tablet 50 mg PO Q12H PRN pain #20 tabs 09/23/24 12/22/24 Rx venlafaxine 150 mg 150 mg PO QAM #90 caps 09/23/24 12/22/24 Rx capsule,extended release 24 hr atenolol 50 mg-chlorthalidone 25 0.5 tab PO DAILY 12/22/24 12/22/24 History mg tablet venlafaxine 75 mg capsule,extended 75 mg PO DAILY 12/22/24 12/22/24 History release 24 hr Allergies Allergy/AdvReac Type Severity Reaction Status Date / Time hydrocodone (From Vicodin) Allergy Unknown Hallucinati Verified 12/22/24 12:19 ng naproxen Allergy Unknown Chemical Verified 12/22/24 12:19 Hepatitis propoxyphene (From Allergy Unknown Hallucinati Verified 12/22/24 12:19 Darvocet-N) ng salsalate Allergy Unknown Ototoxicity Verified 12/22/24 12:19 acetaminophen Allergy Chemical Verified 12/22/24 12:19 Hepatitis latex Allergy burning, Verified 12/22/24 12:19 reddness Exam Narrative: Exam Narrative: She is alert appears in no distress. She gives her own history with good detail. Head is without trauma. Eyes normal. Oropharynx with dry mucous membranes. Small airway. Neck is supple without mass or adenopathy. No stridor. Respirations are clear to auscultation without wheezing rales or rhonchi. Breathing is unlabored. Cardiovascular: S1, S2, regular rate and rhythm. Distant heart sounds. Abdomen: Bowel sounds active. Abdomen is soft without tenderness or mass. She is able to raise her arms to 90? of forward flexion. A little more pain on the right than the left with this activity. Palpation over her shoulders without focal tenderness. No obvious trauma. Strength is normal in upper extremities limited by shoulder pain. Lower extremities without obvious deformity. She is able to lift her left heel off the bed but not flex her left hip in to any significant extent. She has pain in the left hip also with straight leg raising on the right. She tolerates minimal motion in her left hip. Palpation over both knees is without tenderness. Distally she has intact pulses and sensation. One to 2+ edema in her legs. Const: Vital Signs, click to edit/add: Vital Signs - 24 hr 12/22/24 12:15 12/22/24 12:27 12/22/24 12:30 Temperature 97.3 F L Pulse Rate 74 75 Pulse Rate [Pulse Oximeter] 88 Respiratory Rate 20 Blood Pressure Blood Pressure [Ri ght Upper Arm] 115/89 Pulse Oximetry 95 89 88 Oxygen Delivery Me thod Room Air Room Air Nasal Cannula Oxygen Flow Rate 2 12/22/24 12:47 12/22/24 12:49 12/22/24 12:59 Temperature Pulse Rate 71 Pulse Rate [Pulse Oximeter] Respiratory Rate 24 6 L Blood Pressure 123/60 Blood Pressure [Ri ght Upper Arm] Pulse Oximetry 73 L 95 Oxygen Delivery Me thod Room Air Nasal Cannula Oxygen Flow Rate 4 4 12/22/24 13:00 12/22/24 13:01 12/22/24 13:15 Temperature Pulse Rate 75 75 73 Pulse Rate [Pulse Oximeter] Respiratory Rate 0 L 0 L 17 Blood Pressure 111/61 Blood Pressure [Ri ght Upper Arm] Pulse Oximetry 95 96 92 Oxygen Delivery Me thod Nasal Cannula Oxygen Flow Rate 2 12/22/24 13:30 12/22/24 13:32 12/22/24 13:45 Temperature Pulse Rate 74 70 62 Pulse Rate [Pulse Oximeter] Respiratory Rate 9 L 14 10 L Blood Pressure Blood Pressure [Ri ght Upper Arm] Pulse Oximetry 95 96 95 Oxygen Delivery Me thod Oxygen Flow Rate 12/22/24 14:00 12/22/24 14:05 12/22/24 14:08 Temperature Pulse Rate 65 67 67 Pulse Rate [Pulse Oximeter] Respiratory Rate 7 L 11 L 11 L Blood Pressure 112/58 L Blood Pressure [Ri ght Upper Arm] Pulse Oximetry 97 96 98 Oxygen Delivery Me thod Oxygen Flow Rate 12/22/24 14:15 12/22/24 14:30 12/22/24 14:31 Temperature Pulse Rate 56 L 76 67 Pulse Rate [Pulse Oximeter] Respiratory Rate 26 H 7 L 18 Blood Pressure 104/52 L Blood Pressure [Ri ght Upper Arm] Pulse Oximetry 99 97 97 Oxygen Delivery Me thod Oxygen Flow Rate 12/22/24 14:45 12/22/24 15:00 12/22/24 15:15 Temperature Pulse Rate 61 69 Pulse Rate [Pulse Oximeter] Respiratory Rate 14 14 32 H Blood Pressure Blood Pressure [[facility] Upper Arm] Pulse Oximetry 92 86 L 92 Oxygen Delivery Me thod Oxygen Flow Rate Documenting provider has reviewed patient's vital signs: yes Hospitalist - H&P: Result Labs Labs: Short CBC 12/22/24 Range/Units 13:56 WBC 8.74 (4.50-11.00) K/uL Hgb 14.6 (12.0-16.0) gm/dL Hct 44.6 (33.0-51.0) % Plt Count 196 (140-440) K/uL BMP 12/22/24 13:56 Sodium 138 Potassium 3.3 L Chloride 103 Carbon Dioxide 27 BUN 26 Creatinine 0.8 Glucose 106 Calcium 9.[address]: Radiologist's impression: INDICATION: Fall. Prior hip arthroplasty. TECHNIQUE: Noncontrast CT of the left hip. COMPARISON: Radiographs from 02/28/2024. FINDINGS: There is a left total hip arthroplasty. There is an acute periprosthetic fracture associated with the femoral component. Fracture involves the greater trochanter and extends into the intertrochanteric region. At the anterior intertrochanteric position, there is approximately 1.3 centimeters of maximal displacement. The fracture does not extend to involve the subtrochanteric femur. The femoral component does not appear frankly detached. No acute periprosthetic fracture associated with the acetabular component. On the contralateral right side, there is a total hip arthroplasty. Advanced degenerative change of the sacroiliac joints bilaterally. Degenerative changes of the pubic symphysis. Degenerative changes within the lumbar spine No localized fluid collection or space-occupying hematoma. There is severe atrophy of the right-sided iliopsoas muscle. Severe atrophy of the gluteus minimus muscle on the right and a portion of the anterior gluteus medius muscle. Severe atrophy of the left gluteus minimus muscle and mild atrophy of the left gluteus medius muscle. Small fat containing umbilical hernia. Colonic diverticulosis. IMPRESSION: 1. Left total hip arthroplasty. 2. Acute periprosthetic fracture associated with the femoral component. Fracture involves the greater tuberosity and extends into the intertrochanteric region. 1.3 centimeters of maximal displacement at the anterior intertrochanteric positioned. No subtrochanteric extension. Femoral component does not appear frankly detached. 3. No acute periprosthetic fracture associated with the acetabular component. CT scan - head: Radiologist's impression: Indication: Fall, hit head Technique: Volumetric multidetector CT images of the head were obtained without the administration of low osmolar intravenous contrast. Comparison: None available Findings: There is no intra-axial or extra-axial fluid collection. There is no mass effect or midline shift. There is age-related cortical atrophy with mild sulcal widening and ex vacuo dilatation of the lateral ventricles. There are chronic small vessel disease changes in the subcortical and periventricular white matter without lost serrano-white differentiation. The orbits and their contents are grossly within normal limits. There is mild frontal/supraorbital scalp hematoma. The bony calvarium is otherwise intact. The paranasal sinuses are clear. The mastoid air cells are well aerated. Impression: Minimal frontal supraorbital soft tissue hematoma. 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 Cervical spine CT: Radiologist's impression: Indication: Fall, hit head, neck pain Technique: Volumetric multidetector CT images of the cervical spine were obtained without the administration of IV contrast. Comparison: CT cervical spine April 07, 2015 Findings: The cervical vertebral body heights are grossly maintained with endplate subchondral cystic changes. There is mild straightening and reversal of the normal cervical lordosis. There is no displaced fracture or dislocation. There is moderate multilevel degenerative disc disease with disc height loss and marginal osteophyte formation. Moderate to severe facet arthrosis and degenerative changes appreciated within the atlantoaxial joint. The lung apices demonstrate mild pulmonary vascular congestion. Impression: Moderate to severe degenerative changes of the cervical spine without acute osseous abnormality. Chest x-ray: Attestation: I have reviewed the pertinent imaging results. (Chest x-ray, portable technique, no obvious infiltrate or effusion. Normal chest.)
--- NOTE | 2024-12-22 16:26 | PC.SOCIAL ---
Discharge planning: Met with pt at her request. Pt is the primary caregiver of her at their home in [place]. Pt has hired attendant care for from 8am-2pm Sunday-Sunday but also sometimes provides physical assistance when needs 2 person assist. Per pt, her is scheduled to enter into Com[facility] with [facility] tomorrow. Pt is hoping to discharge home when ready to leave the hospital and arrange for another attendant to be added to the home delivery driver care and then to also extend the care from 8am until bedtime. Pt will request her son contact the exterminator helper care insurance to see if insurance will cover additional care if she returns home and also contact the home delivery driver care agency to request increased services at home to care for her. Pt does not want to go to transitional care outside the home as she has worked to keep her at home and wants to remain at home with him. Pt plans to discuss options with her sons angel and will meet with social work nurse tomorrow regarding discharge plans.
[2024-12-22] MEDS: POTASSIUM BICARB 25 MEQ EFFERVESCENT TAB PO (18:12)
--- NOTE | 2024-12-22 19:02 | PC.NURSE ---
Pt arrived to unit @ 1625. Pt is AxOx4, cooperative, and pleasant with cares. Pt reports pain to the L hip with activity and 0/10 pain with inactivity. Pt reports back pain due to position and not be able to bend L leg. Bowling Floor Manager continuing to assess and monitor pain, repositioning provided. VSS on RA. IV SL. Purewick in place. Pt reported stress incontinence. Bruise to forehead due to fall, denies headache/dizziness/sob. Hx of lymphedem with 2 pluse pitting edema to the BLE. Pt tolerating therapeutic diet and fluids well. Using call light appropriately. Pt appears resting in bed with call light in reach.
[2024-12-22] MEDS: LACTATED RINGERS 500 ML 500 ML IV ×2 (20:30→21:59)
[2024-12-22] MEDS: SODIUM CHLORIDE 0.9 % (FLUSH) 10 ML SYRINGE 5 ML IVF (20:37)
[2024-12-22] MEDS: LACTATED RINGERS 1000 ML 1,000 ML 75 ML IV (20:40)
[2024-12-22] MEDS: TRAMADOL HCL 50 MG TABLET PO (22:52)
[2024-12-22] MEDS: MELATONIN 3 MG TABLET PO (22:52)
[2024-12-23] VITALS (9 sets, daily range): BP systolic 83–136; BP diastolic 47–66; PULSE 61–95; RESP 14–16; TEMP 36.6–36.9; O2SAT 91–96
[2024-12-23 06:01] LABS: HCO3 VBG 28 mmol/L (21-28); PCO2 VBG 41 mmHG (40-50); PO2 VBG 34.2 mmHG (25-47); pH VBG 7.449 (7.32-7.43)
[2024-12-23 06:02] LABS: Hematocrit 40.5 % (33.0-51.0); Hemoglobin* 13.5 gm/dL (12.0-16.0); Immature Granulocytes Abs Auto 0.03 K/uL (0.00-0.30); Immature Granulocytes Pct Auto 0.4 %; Mean Corpuscular HGB Conc 33 gm/dL (32-36); Mean Corpuscular Hemoglobin 32 pg (26-34); Mean Corpuscular Volume 95 fL (80-100); RDW Coefficient of Variation % 13.9 % (11.5-15.5); Red Blood Count 4.28 m/uL (4.00-5.20); White Blood Count* 7.48 K/uL (4.50-11.00)
[2024-12-23 06:14] LABS: Lymphocytes Absolute Auto 0.70 K/uL (0.90-2.90); Slide Review Reflex No
[2024-12-23 06:23] LABS: Chloride* 102 mmol/L (96-114); Potassium* 3.5 mmol/L (3.6-5.1); Sodium* 135 mmol/L (135-149)
[2024-12-23 06:25] LABS: Blood Urea Nitrogen* 21 mg/dL (7-30); Creatinine* 0.7 mg/dL (0.5-1.5); Estimated Glomerular Filt Rate 86 ml/min
[2024-12-23 06:26] LABS: Alkaline Phosphatase* 105 U/L (40-150); Anion Gap 4 mEq/L (7-15); Calcium* 9.2 mg/dL (8.4-10.6); Carbon Dioxide* 29 mmol/L (20-32); Glucose* 111 mg/dL (60-115)
[2024-12-23 06:41] LABS: Vitamin D 25 Hydroxy* 30 ng/mL (30-80)
--- NOTE | 2024-12-23 07:43 | PC.NURSE ---
Arrived to find the patient in bed, alert and oriented but vitally unstable. Significantly hypotensive both semi-fowlers and supine. The patient did not describe dizziness at this time. MD immediately notified in person. One bolus of 500 ml was given. MD assessed and another bolus was ordered and given. This raised her blood pressure to a more acceptable level, however the patient was not feeling an urge to urinate. A bladder scan did not find significant retention. Continuing to monitor. Inspection of mouth found poor tooth health. At a risk for skin breakdown given immobility and weak strength. Does not appear to have the ability to fully mobilize. Currently toe bearing on the left side. A purewick is in place for urination. No significant out put through the night. Bladder scan showed 375 retention. After straight cathing we pulled out 900 ml of fluid. Anatomy of the bladder region may have been a factor. Significant edema of the legs, ankles, and feet. Very large and swollen. No skin tightness. No pitting. We do not have TEDS in a size that fits the patient. We do have on calf SCDs. Legs elevated. Pain of the back and legs has been notable overnight. Treating with PRN pain medications.?
[2024-12-23] MEDS: ACETAMINOPHEN 325 MG TABLET 650 MG PO ×3 (07:51→20:33)
[2024-12-23] MEDS: METFORMIN ER 500 MG 1500 MG PO (07:51)
[2024-12-23] MEDS: CHLORTHALIDONE 25 MG TABLET 12.5 MG PO (09:36)
[2024-12-23] MEDS: VENLAFAXINE ER 75 MG CAPSULE 225 MG PO (09:38)
[2024-12-23] MEDS: RIVAROXABAN 10 MG TABLET PO (09:43)
--- NOTE | 2024-12-23 11:52 | P.IMPN_ITS ---
Assessment and Plan Assessment and plan (1) Closed fracture of left hip: Problem comment: - Conservative/non operative management with toe-touch weight-bearing - therapies and SW following to assist with dispo Status: Acute (2) Hypoxia: Problem comment: - on admission, required 3L of oxygen per NC to maintain O2 sats > 90%, no dyspnea, no previous history of heart or lung disease causing respiratory problems - VBG reassuring, likely combination of REBECCA and iatrogenic from opiates - resolved 12/23, continue to monitor closely Status: Acute (3) Hypotension: Problem comment: - noted 12/23 with SBP in the 80-90 range - Krysta is asymptomatic without lightheadedness, tachycardia, or fever - hold home Atenolol and Chlorthalidone, prn IVF bolus, follow renal function and UOP Status: Acute (4) Situational depression: Problem comment: - on venlafaxine. 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 Taking 1500 mg a day, higher doses cause diarrhea Status: Acute (7) Osteoarthritis involving multiple joints on both sides of body: Problem comment: - History of Bilateral hip replacements, bilateral knee replacements. In need of bilateral shoulder replacements. Status: Acute (8) Obstructive sleep apnea: Problem comment: - clinically suspected, likely contributing to hypoxia with current hip fracture and opioid treatment - caution with opioids, sedation and oxygen Status: Suspected Plan - per above - therapies following, dispo planning pending evaluations Subjective Date Seen: 12/23/24 Interval history: Krysta was admitted to the hospital on 12/22 after a mechanical fall at the hospital. She sustained a left proximal femoral periprosthetic fracture, nonoperative per Orthopedic Surgery, toe-touch weight bearing. Starting therapies today. + pain, some relief with Oxycodone. History of bilateral hip replacements and bilateral knee replacements. Strongly prefers to go home over SNF (primary caregiver for , who is initiating hospice/palliative care this week - however, he actually fell and has 3 nondisplaced rib fractures and was also admitted to the hospital yesterday evening). No medical concerns for hospitalist today. Exam Narrative: Exam Narrative: GEN: Alert, laying in bed, uncomfortable but nontoxic HEENT: Hematoma over R forehead, bruising under R eye. EOMIs bilaterally, eyes open 100% CV: RRR, No concerning murmurs R: LCTA bilaterally without concerning wheezing Ab: Soft and nontender Ext: + peripheral pulses, + BLE lymphedema Skin: No other concerning skin lesions or rashes on exposed skin Neuro: Nonfocal Psych: Appropriate Const: Vital Signs, click to edit/add: Vital Signs - 24 hr 12/22/24 12:15 12/22/24 12:27 12/22/24 12:30 Temperature 97.3 F L Pulse Rate 74 75 Pulse Rate [Pulse Oximeter] 88 Respiratory Rate 20 Blood Pressure Blood Pressure [Le ft Arm] Blood Pressure [Ri ght Arm] Blood Pressure [Ri ght Upper Arm] 115/89 Pulse Oximetry 95 89 88 Oxygen Delivery Me thod Room Air Room Air Nasal Cannula Oxygen Flow Rate 2 12/22/24 12:47 12/22/24 12:49 12/22/24 12:59 Temperature Pulse Rate 71 Pulse Rate [Pulse Oximeter] Respiratory Rate 24 6 L Blood Pressure 123/60 Blood Pressure [Le ft Arm] Blood Pressure [Ri ght Arm] Blood Pressure [Ri ght Upper Arm] Pulse Oximetry 73 L 95 Oxygen Delivery Me thod Room Air Nasal Cannula Oxygen Flow Rate 4 4 12/22/24 13:00 12/22/24 13:01 12/22/24 13:15 Temperature Pulse Rate 75 75 73 Pulse Rate [Pulse Oximeter] Respiratory Rate 0 L 0 L 17 Blood Pressure 111/61 Blood Pressure [Le ft Arm] Blood Pressure [Ri ght Arm] Blood Pressure [Ri ght Upper Arm] Pulse Oximetry 95 96 92 Oxygen Delivery Me thod Nasal Cannula Oxygen Flow Rate 2 12/22/24 13:30 12/22/24 13:32 12/22/24 13:45 Temperature Pulse Rate 74 70 62 Pulse Rate [Pulse Oximeter] Respiratory Rate 9 L 14 10 L Blood Pressure Blood Pressure [Le ft Arm] Blood Pressure [Ri ght Arm] Blood Pressure [Ri ght Upper Arm] Pulse Oximetry 95 96 95 Oxygen Delivery Me thod Oxygen Flow Rate 12/22/24 14:00 12/22/24 14:05 12/22/24 14:08 Temperature Pulse Rate 65 67 67 Pulse Rate [Pulse Oximeter] Respiratory Rate 7 L 11 L 11 L Blood Pressure 112/58 L Blood Pressure [Le ft Arm] Blood Pressure [Ri ght Arm] Blood Pressure [Ri ght Upper Arm] Pulse Oximetry 97 96 98 Oxygen Delivery Me thod Oxygen Flow Rate 12/22/24 14:15 12/22/24 14:30 12/22/24 14:31 Temperature Pulse Rate 56 L 76 67 Pulse Rate [Pulse Oximeter] Respiratory Rate 26 H 7 L 18 Blood Pressure 104/52 L Blood Pressure [Le ft Arm] Blood Pressure [Ri ght Arm] Blood Pressure [Ri ght Upper Arm] Pulse Oximetry 99 97 97 Oxygen Delivery Me thod Oxygen Flow Rate 12/22/24 14:45 12/22/24 15:00 12/22/24 15:15 Temperature Pulse Rate 61 69 Pulse Rate [Pulse Oximeter] Respiratory Rate 14 14 32 H Blood Pressure Blood Pressure [Le ft Arm] Blood Pressure [Ri ght Arm] Blood Pressure [Ri ght Upper Arm] Pulse Oximetry 92 86 L 92 Oxygen Delivery Me thod Oxygen Flow Rate 12/22/24 16:25 12/22/24 17:07 12/22/24 20:15 Temperature 97.7 F 97.8 F Pulse Rate Pulse Rate [Pulse Oximeter] 86 94 Respiratory Rate 18 16 Blood Pressure Blood Pressure [Le ft Arm] 94/55 L Blood Pressure [Ri ght Arm] 130/81 73/42 L Blood Pressure [Ri ght Upper Arm] Pulse Oximetry 93 94 Oxygen Delivery Me thod Room Air Room Air Room Air Oxygen Flow Rate 12/22/24 22:17 12/22/24 22:54 12/23/24 03:15 Temperature 97.7 F 98.2 F Pulse Rate Pulse Rate [Pulse Oximeter] 64 95 Respiratory Rate 20 16 Blood Pressure Blood Pressure [Le ft Arm] 105/59 L 116/58 L Blood Pressure [Ri ght Arm] Blood Pressure [Ri ght Upper Arm] Pulse Oximetry 94 95 95 Oxygen Delivery Me thod Room Air Room Air Room Air Oxygen Flow Rate 12/23/24 07:44 12/23/24 07:44 12/23/24 07:44 Temperature 98.4 F Pulse Rate Pulse Rate [Pulse Oximeter] 63 63 Respiratory Rate 16 16 16 Blood Pressure Blood Pressure [Le ft Arm] Blood Pressure [Ri ght Arm] 136/66 Blood Pressure [Ri ght Upper Arm] Pulse Oximetry 95 95 Oxygen Delivery Me thod Room Air Room Air Oxygen Flow Rate 12/23/24 11:22 12/23/24 11:24 12/23/24 11:26 Temperature 98.3 F Pulse Rate Pulse Rate [Pulse Oximeter] 65 71 69 Respiratory Rate 14 Blood Pressure Blood Pressure [Le ft Arm] 87/54 L Blood Pressure [Ri ght Arm] 91/47 L 83/47 L Blood Pressure [Ri ght Upper Arm] Pulse Oximetry 91 Oxygen Delivery Me thod Room Air Oxygen Flow Rate Labs Labs: Laboratory Results - last 24 hr 12/22/24 12/23/24 13:56 05:47 WBC 8.74 7.48 RBC 4.68 4.28 Hgb 14.6 13.5 Hct 44.6 40.5 MCV 95 95 MCH 31 32 MCHC 33 33 RDW Coeff of Mike 13.8 13.9 Plt Count 196 171 Neut % (Auto) 72.2 H 72.9 H Lymph % (Auto) 12.6 L 9.8 L [place] % (Auto) 11.7 H 13.1 H Eos % (Auto) 2.2 3.1 Baso % (Auto) 0.7 0.7 Neut # (Auto) 6.30 5.50 Lymph # (Auto) 1.10 0.70 L [place] # (Auto) 1.00 H 1.00 H Eos # (Auto) 0.19 0.23 Baso # (Auto) 0.06 0.05 Abs Immat Gran (auto) 0.05 0.03 Imm/Tot Granulo (auto) 0.6 0.4 VBG pH 7.449 H VBG pCO2 41 VBG pO2 34.2 VBG HCO3 28 Sodium 138 135 Potassium 3.3 L 3.5 L Chloride 103 102 Carbon Dioxide 27 29 Anion Gap 8 4 L BUN 26 21 Creatinine 0.8 0.7 Estimated GFR 73 86 Glucose 106 111 Calcium 9.8 9.2 Phosphorus 3.5 Alkaline Phosphatase 105 25-OH Vitamin D Total 30
[2024-12-23] MEDS: LACTATED RINGERS 500 ML 500 ML IV (12:42)
[2024-12-23] MEDS: POTASSIUM BICARB 25 MEQ EFFERVESCENT TAB PO (13:38)
--- NOTE | 2024-12-23 15:16 | NUTR.NU ---
Nutrition screen r/t nursing referral for skin and patient with Diabetic Diet. Height 5' 3 1/2, weight 241 lbs, BMI 42. Patient admit with fall, closed hip fx, no surgery. Attempted to visit x3. Diagnosis includes prediabetes with metformin. Intake 100% at supper 12/22 and 75% at breakfast today. Follow up tomorrow.
--- NOTE | 2024-12-23 16:54 | PC.SOCIAL ---
Discharge planning: Discussed discharge plan with pt and later with pt and two sons. All are in agreement that a short term stay at a [facility] facility for both pt and who is also hospitalized will be the best discharge plan. After a short term stay, pt hopes they can return home with home hospice aide care as needed. Called and sent information for pt and to [facility] and [facility]. Received confirmation from both facilities of availability for both patients for admit tomorrow. Met with pt's and sons who chose [facility] for admission tomorrow. Family is aware of private pay cost and in agreement with this. Family is requesting non-emergency ambulance transport for pt and to [facility] tomorrow morning. Family is fine paying privately for this transportation. [facility] is requesting arrival before 1:00. 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
--- NOTE | 2024-12-23 19:26 | PC.NURSE ---
End of Shift: Patient pleasant and cooperative. Patient vitally stable, lungs clear, BS WNL, IV SL and intact. Patient has soft BPs for 11am vitals, MD was notified and bolus was ordered. Patient rates hip pain at most 3/10, tylenol and 5 mg of oxy given x2. Patient urinating well and had 1 BM, using commode. Purewick applied as patient is now in bed for the night, but patient spent all day up in chair. Patient tolerating regular diet.
[2024-12-23] MEDS: MELATONIN 3 MG TABLET PO (22:45)
[2024-12-23] MEDS: SODIUM CHLORIDE 0.9 % (FLUSH) 10 ML SYRINGE 5 ML IVF (22:46)
[2024-12-24] VITALS (7 sets, daily range): BP systolic 90–113; BP diastolic 56–63; PULSE 65–74; RESP 16–18; TEMP 36.4–36.6; O2SAT 88–93
[2024-12-24] MEDS: LACTATED RINGERS 500 ML 500 ML IV (03:41)
[2024-12-24 06:24] LABS: Hematocrit 36.7 % (33.0-51.0); Hemoglobin* 12.0 gm/dL (12.0-16.0); Immature Granulocytes Abs Auto 0.07 K/uL (0.00-0.30); Immature Granulocytes Pct Auto 1.1 %; Mean Corpuscular HGB Conc 33 gm/dL (32-36); Mean Corpuscular Hemoglobin 31 pg (26-34); Mean Corpuscular Volume 96 fL (80-100); RDW Coefficient of Variation % 14.2 % (11.5-15.5); Red Blood Count 3.82 m/uL (4.00-5.20); White Blood Count* 6.54 K/uL (4.50-11.00)
[2024-12-24 06:28] LABS: Chloride* 104 mmol/L (96-114); Lymphocytes Absolute Auto 1.20 K/uL (0.90-2.90); Potassium* 3.4 mmol/L (3.6-5.1); Slide Review Reflex No; Sodium* 136 mmol/L (135-149)
[2024-12-24 06:31] LABS: Anion Gap 4 mEq/L (7-15); Blood Urea Nitrogen* 17 mg/dL (7-30); Calcium* 8.8 mg/dL (8.4-10.6); Carbon Dioxide* 28 mmol/L (20-32); Creatinine* 0.7 mg/dL (0.5-1.5); Estimated Glomerular Filt Rate 86 ml/min; Glucose* 104 mg/dL (60-115)
[2024-12-24] MEDS: METFORMIN ER 500 MG 1500 MG PO (07:44)
--- NOTE | 2024-12-24 07:58 | PC.NURSE ---
This patient was alert and oriented and vitally stable at shift start. They had one notable episode of intense liquid stool reported to me by the patient and nursing aid but stool amount was not collected at that time. The greater part of a commode bucket I am told. They were later incontinent and felt they could not control their stool. I called the MD and orders were placed for C. Diff testing. Put on contact precautions. An EKG was also taken as I had heard a dysrhythmia on auscultation. 1st degree AV block found. They also became hypotensive overnight and it took a bolus of lactated ringers was given to stabilize. CMS has remained intact in the left leg. The area over the hip appears red. They have remained in bed overnight with the exception of the commode use once. Stand to pivot. I alerted the oncoming staff of her liquid stool and unstable blood pressures during transfer of care.?
[2024-12-24] MEDS: ACETAMINOPHEN 325 MG TABLET 650 MG PO (08:57)
[2024-12-24] MEDS: POTASSIUM BICARB 25 MEQ EFFERVESCENT TAB PO (08:57)
[2024-12-24] MEDS: VENLAFAXINE ER 75 MG CAPSULE 225 MG PO (08:57)
--- NOTE | 2024-12-24 08:57 | PM.DS1 ---
DS: Providers Provider Date Seen: 12/24/24 Date of admission: 12/22/24 16:19 Primary care physician: Mel Bahena MD Admitting Clinician: Lamin Santo MD Consults: OT, PT, SW Attending Physician on discharge: Trena Duncan MD Date of Discharge: 12/24/24 DS: Diagnosis Discharge Diagnosis (1) Closed fracture of left hip: Status: Acute Problem details: - Conservative/non operative management with toe-touch weight-bearing - therapies followed during stay, SNF recommended (2) Hypoxia: Status: Acute Problem details: - on admission, required 3L of oxygen per NC to maintain O2 sats > 90%, no dyspnea, no previous history of heart or lung disease causing respiratory problems - VBG reassuring, likely combination of REBECCA and iatrogenic from opiates - resolved 12/23, stable on RA upon discharge (3) Hypotension: Status: Acute Problem details: - noted 12/23 with SBP in the 80-90 range - Krysta is asymptomatic without lightheadedness, tachycardia, or fever, typically runs lower BPs per chart review - held Atenolol/Chlorthalidone during stay and upon discharge, restart if/when BP >140/90 (4) Situational depression: Status: Acute Problem details: - on venlafaxine. Current injury with femur fracture his major stressor for her as her caregiver for her (5) Lymphedema: Status: Acute Problem details: - BLE (6) Pre-diabetes: Status: Acute Problem details: - on Metformin, held for diarrhea during stay, will hold upon d/c as well (7) Osteoarthritis involving multiple joints on both sides of body: Status: Acute Problem details: - History of Bilateral hip replacements, bilateral knee replacements. In need of bilateral shoulder replacements. (8) Obstructive sleep apnea: Status: Suspected Problem details: - clinically suspected, likely contributed to hypoxia with current hip fracture and opioid treatment DS: Summary Hospital Course Hospital Course: Krysta was admitted to the hospital on 12/22 after a mechanical fall. She sustained a left proximal femoral periprosthetic fracture, nonoperative per Orthopedic Surgery, appropriate for toe-touch weight bearing. Oxycodone for pain management. Worked with therapies during stay, TCU recommended. Had lower BPs during stay, home medications held. History of lower BPs at baseline per patient report and chart review. No associated tachycardia or fever. No lightheadedness. Hgb with mild decrease but overall stable at 12.0 upon discharge. Mild diarrhea, likely iatrogenic from Metformin, held this upon discharge. C-Diff was negative. Krysta was appropriate for discharge to [facility] in [place] on 12/24/24. Status at Discharge Functional status at discharge: uses cane/walker Overall status at discharge: patient is progressing back to baseline Time Spent with Patient Time attestation: Total time spent providing and/or coordinating discharge services: Time spent: Greater than 30 minutes Specific discharge activities: Medication reconciliation Exam Narrative: Exam Narrative: GEN: Alert and oriented, nontoxic HEENT: Hematoma over R forehead, bruising under R eye, mild bruising under L eye. Yes open fully, EOMIs intact CV: RRR, No concerning murmurs R: LCTA bilaterally without concerning wheezing Ext: + peripheral pulses, + BLE lymphedema Skin: No other concerning skin lesions or rashes on exposed skin Neuro: Nonfocal Psych: Appropriate Const: Vital Signs, click to edit/add: Vital Signs - 24 hr 12/23/24 11:22 12/23/24 11:24 12/23/24 11:26 Temperature 98.3 F Pulse Rate [Pulse Oximeter] 65 71 69 Respiratory Rate 14 Blood Pressure [Le ft Arm] 87/54 L Blood Pressure [Ri ght Arm] 91/47 L 83/47 L Pulse Oximetry 91 Oxygen Delivery Me thod Room Air Oxygen Flow Rate 12/23/24 15:00 12/23/24 15:00 12/23/24 15:00 Temperature 97.8 F Pulse Rate [Pulse Oximeter] 65 65 Respiratory Rate 16 16 16 Blood Pressure [Le ft Arm] Blood Pressure [Ri ght Arm] 105/61 Pulse Oximetry 95 95 Oxygen Delivery Me thod Room Air Room Air Oxygen Flow Rate 12/23/24 20:15 12/23/24 22:49 12/23/24 23:00 Temperature 98.1 F 98.2 F Pulse Rate [Pulse Oximeter] 61 67 Respiratory Rate 16 16 16 Blood Pressure [Le ft Arm] 106/49 L 109/60 Blood Pressure [Ri ght Arm] Pulse Oximetry 96 92 92 Oxygen Delivery Me thod Room Air Room Air Room Air Oxygen Flow Rate 12/24/24 03:00 12/24/24 03:15 12/24/24 04:45 Temperature 97.9 F Pulse Rate [Pulse Oximeter] 65 Respiratory Rate 16 Blood Pressure [Le ft Arm] 99/56 L 90/61 105/59 L Blood Pressure [Ri ght Arm] Pulse Oximetry 93 Oxygen Delivery Me thod Room Air Oxygen Flow Rate 12/24/24 06:16 12/24/24 06:20 12/24/24 06:25 Temperature Pulse Rate [Pulse Oximeter] Respiratory Rate Blood Pressure [Le ft Arm] 107/63 Blood Pressure [Ri ght Arm] Pulse Oximetry 88 92 Oxygen Delivery Me thod Room Air Nasal Cannula Oxygen Flow Rate 0.5 12/24/24 07:39 Temperature 97.5 F L Pulse Rate [Pulse Oximeter] 74 Respiratory Rate 18 Blood Pressure [Le ft Arm] 113/60 Blood Pressure [Ri ght Arm] Pulse Oximetry 93 Oxygen Delivery Me thod Room Air Oxygen Flow Rate DS: Data Data Completed and Pending Labs on day of discharge: Labs from last 24 hours 12/24/24 05:53 WBC 6.54 RBC 3.82 L Hgb 12.0 Hct 36.7 MCV 96 MCH 31 MCHC 33 RDW Coeff of Mike 14.2 Plt Count 171 Neut % (Auto) 59.4 Lymph % (Auto) 18.0 L [place] % (Auto) 15.7 H Eos % (Auto) 5.2 Baso % (Auto) 0.6 Neut # (Auto) 3.88 Lymph # (Auto) 1.20 [place] # (Auto) 1.00 H Eos # (Auto) 0.34 Baso # (Auto) 0.04 Abs Immat Gran (auto) 0.07 Imm/Tot Granulo (auto) 1.1 Sodium 136 Potassium 3.4 L Chloride 104 Carbon Dioxide 28 Anion Gap 4 L BUN 17 Creatinine 0.7 Estimated GFR 86 Glucose 104 Calcium 8.8 Discharge Plan Discharge Disposition: [facility] Date of Admission: 12/22/24 16:19 Attending Provider on Discharge: Trena Duncan Primary Care Provider: Mel Bahena Condition: Stable Anticipated Discharge Date/Time: 12/24/24 08:17 Discharge Medications: New sennosides-docusate sodium [Stool Softener-Laxative] 8.6-50 mg Tablet 1 - 2 tab PO BID PRNQty: 60 0RF oxycodone 5 mg Tablet 5 mg PO Q4H PRN (Reason: Pain) Qty: 20 0RF Xarelto 10 mg Tablet 10 mg PO DAILY Qty: 12 0RF Rx Instructions: total of 14 days tramadol 50 mg Tablet 50 mg PO Q12H PRN (Reason: Pain) Qty: 60 0RF Continued cholecalciferol (vitamin D3) 25 mcg (1,000 unit) capsule 25 mcg PO DAILY ascorbic acid (vitamin C) 1 tab PO DAILY multivitamin Tablet 1 tab PO QAM melatonin 3 mg capsule 3 mg PO HS venlafaxine 150 mg capsule,extended release 24hr 150 mg PO QAM Qty: 90 3RF Rx Instructions: take with 75 mg dose, for a total of 225 mg daily venlafaxine 75 mg capsule,extended release 24hr 75 mg PO DAILY Rx Instructions: Take with 150 mg tablet for total of 225 mg venlafaxine daily Held atenolol-chlorthalidone 50-25 mg tablet 0.5 tab PO DAILY Hold Instructions: hold until BP >140/80 metformin 500 mg tablet extended release 24 hr 1,500 mg PO DAILY Hold Instructions: hold for one week, restart when eating regularly Discontinued tramadol 50 mg tablet 50 mg PO Q12H PRN (Reason: pain) Qty: 20 0RF Discharge Orders: Discharge Order (Routine); Ordered 12/24/24 Ordered By: Trena Duncan Additional Instructions: HOLD your BP medication for a few days given your lower blood pressures here, they will check your blood pressure at [facility] and can restart when you're consistently >140/80 12 more days of Xarelto (blood thinner) to prevent blood clots given your fracture and decreased mobility. Ortho appt in 7-10 days to discuss weight bearing status and overall improvement. See Dr. Bahena a week or two after rehab stay. Activity Detail: per therapies Discharge Diet: Regular Follow Up Appointments: Orthopedics, [facility] [Provider Group] Referral Note: 7-10 days for f/u Mel Bahena MD [Primary Care Provider, Internal Medicine] [facility] Instructions Admit to: SNF Discharge Potential: Good Length of Stay: <30 days Can use facility standing orders?: Yes Code Status: DNR/DNI Rehab Potential: Good Therapy: Physical Therapy and Occupational Therapy Therapy Orders: Gait Training Therapy Orders Additional Information: Nonoperative fracture of greater tuberosity, TTWB on LLE Oxygen: No Urinary Catheter: No Lab Orders: CBC and BMP in 5-7 days Orders are good >30 days: Yes Signature: Trena Duncan MD
[2024-12-24] MEDS: RIVAROXABAN 10 MG TABLET PO (08:58)
--- NOTE | 2024-12-24 10:29 | PC.NURSE ---
Report given to [facility] at [facility].
[2024-12-24 11:05] LABS: C.Difficile Negative (Negative); CDIFFEPI 027 PRESUMPTIVE NEGATIVE (Negative)
--- NOTE | 2024-12-24 11:21 | NUTR.NU ---
Nutrition screen r/t nursing referral for skin and patient with Diabetic Diet. Patient admitted with a mechanical fall with left hip fracture non-operative. Medical history includes, but not limited to hypoxia, hypotension, situational depression, lymphedema, pre-diabetes with Metformin, and REBECCA. Per sugar refiner, patient is eating 75-100% of most meals since admission. Current weight 241lbs 12/24/24. Weight history: 241lbs 08/20/24 and 241lbs 02/28/24. Diabetic diet education provided. Discussed basics of carbohydrate counting including sources of carbohydrates, serving sizes, and label reading. Discussed using the plate method for carbohydrate-controlled, balanced meals that include ? plate non-starchy vegetables, ? plate protein, and 3-4 servings of carbohydrates per meal (fruit, whole grains, legumes, milk, yogurt) and 1-2 per snack. Handouts provided to support discussion. RDN contact information provided and encouraged patient to call with questions. Plan to discharge to [place] for rehab today. RDN will continue to follow prn.
--- NOTE | 2024-12-24 12:04 | PC.NURSE ---
End of Shift: Patient pleasant and cooperative, alert and oriented. Patient vitally stable, lungs clear, BS WNL, IV removed, catheter intact. Patient rates no left hip pain when lying in bed or up in chair, but always reports she can not stand up. Tylenol and 5mg of oxycodone given once. Patient is tolerating regular diet, and had a half incontinent loose BM. Patient is 2 assist to the commode. Patient has a bruised forehead and inner right eye from fall. Patient signed belongings sheet and discharge from. Patient left the floor by EMS to [facility] at 1138.
== END 2024-12-24 11:38 ==
LOC: ED 16:00 → MEDSURG 16:21
PROVIDERS: Family Medicine; Admitting Provider Family Medicine; Emergency Provider Student in an Organized Health Care Education/Training Program; PCP Internal Medicine; Visit Provider Family Medicine
DX: S72.002A Fracture of unspecified part of neck of left femur, initial encounter for closed fracture (principal); R09.02 Hypoxemia; I95.9 Hypotension, unspecified; F43.21 Adjustment disorder with depressed mood; I89.0 Lymphedema, not elsewhere classified; R73.03 Prediabetes; M15.0 Primary generalized (osteo)arthritis; G47.33 Obstructive sleep apnea (adult) (pediatric)
CPT/HCPCS: 36415; 51702; 51798; 70450; 71045; 72125; 73502; 73560; 73700; 80048; 82306; 82803; 84075; 84100; 85025; 87493; 93005; 96374; 96375; 96376; 97116; 97161; 97165; 97530; 97535; 99284; 99285; A9270; G0378; J1171; J1885; J3010; J3360; J7120

== ENCOUNTER 2024-12-24 11:30 | Outpatient (CLI) | payer MEDICARE, OTHER, SELFPAY | END 2024-12-24 11:31 | disposition home or self-care (01) | PROVIDERS: PCP Internal Medicine; Visit Provider Family Medicine | DX: S72.002A Fracture of unspecified part of neck of left femur, initial encounter for closed fracture (principal); R09.02 Hypoxemia; I95.9 Hypotension, unspecified | CPT/HCPCS: A0425; A0428 ==

== ENCOUNTER 2025-06-02 09:15 | Outpatient (CLI) | payer MEDICARE, OTHER, SELFPAY | END 2025-06-02 09:16 | disposition home or self-care (01) | LOC: NFLDREF 09:16 | PROVIDERS: PCP Internal Medicine; Visit Provider Internal Medicine | DX: Z01.818 Encounter for other preprocedural examination (principal) | CPT/HCPCS: 80053 ==

== ENCOUNTER 2025-06-07 13:07 | Outpatient (CLI) | payer MEDICARE, OTHER, SELFPAY | END 2025-06-07 13:08 | disposition home or self-care (01) | LOC: AMB 06-08 03:58 | PROVIDERS: PCP Internal Medicine; Visit Provider Family Medicine | DX: S79.912A Unspecified injury of left hip, initial encounter (principal); W01.0XXA Fall on same level from slipping, tripping and stumbling without subsequent striking against object, initial encounter; Y92.009 Unspecified place in unspecified non-institutional (private) residence as the place of occurrence of the external cause | CPT/HCPCS: A0425; A0427 ==

== ENCOUNTER 2025-06-07 13:49 | Emergency (ER) | payer MEDICARE, OTHER, SELFPAY ==
[2025-06-07] VITALS (63 sets, daily range): BP systolic 111–170; BP diastolic 81–102; PULSE 84–97; RESP 0–43; TEMP 36.6; O2SAT 86–99
--- OUTSIDE RECORDS SUMMARY | 2025-06-07 13:52 | XMS_ITS | Clinical Summary ---
Author Organization [facility] Address [address] [place] [id number] Care Team Providers Care Customer Advisor Name Role Phone Mel Bahena MD Primary Care Provider [phone] Allergies Active AllergyReactionsCriticalityNoted DateCommentsPropoxyphene-Acetaminophen Cjkgvyfxewkqnz90/27/2007 Hallucinations Tolerates oxycodone Fhfwgtbyx63/31/2008 Tinnitis NaproxenOther - Describe In Comment Field10/29/2008 Chemicalhepatitis Oxycodone-KzzeadkqjnzpuEongckcfxrxfwx33/06/3359DmxgbcfmfCybptmyhbdu77/20/2008 Bumwalezfjxoy03/27/2007 hepatitis Hydrocodone-Epzwvmulipyzq22/27/2007 hallucinations Medications MedicationSigDispense QuantityRefillsLast FilledStart DateEnd DateStatus atenolol-chlorthalidone, 50-25 mg, (TENORETIC 50) 50-25 mg tablet Take 0.5 tablets by mouth once daily.Active folic acid 400 mcg tablet Take 400 mcg by mouth once daily.Active venlafaxine (Effexor XR) 150 mg Extended-Release capsule Take 150 mg by mouth once daily with a meal.Active calcium phosphate dibas/vit D3 (VITAMIN D, WITH CALCIUM, ORAL) Take by mouth.Active melatonin 3 mg tablet Take 1 Tablet (3 mg) by mouth once daily.ctive cholecalciferol (Vitamin D) 1,000 unit capsule Take 1 Capsule (1,000 units) by mouth once daily.ctive diazePAM (VALIUM) 2 mg tablet Indications:Osteoarthritis of right glenohumeral joint,H/O repair of right rotator cuff1 tab PO 60 minutes prior to imaging. If still anxious, 1 additional tab PO 30 minutes prior to imaging 2 Tablet 5Active Active Problems ProblemNoted DateDiagnosed DateOsteoarthritis of right glenohumeral joint 04/17/2025Hx of Aphasia due to /26/2018UTI (urinary tract infection), once a year09/03/2017Primary osteoarthritis of left knee06/14/2017 Overview (09/03/2017): Left total knee arthroplasty on 09/17/[address] 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 Hx of ESBL (extended spectrum beta-lactamase) producing bacteria infection from UTI Resolved Problems ProblemNoted DateDiagnosed DateResolved DateOsteoarthritis of right glenohumeral jointOsteoarthritis of left glenohumeral joint04/16/2023 03/17/2025h/o right shoulder arthroscopic rotator cuff repair, subacromial decompression acromioclavicular joint resection, open subpectoralis biceps resection transplantation DOS: 10/30/2008 by Buss1rimary osteoarthritis of right shoulder - advanced with posterior wear04/07/2019 04/10/2023Early osteoarthritis of left glenohumeral joint - moderate with neutral wear auvxulb21Early osteoarthritis of left glenohumeral jointImpingement syndrome of left shoulder Ganglion cyst in infraspinatus, left gnapxyau17/25/2017 09/03/2017Nontraumatic tear of left rotator cuffTendinopathy of left biceps emzehx53AC (acromioclavicular) arthritis Tear of left rotator cuffKnee joint replacement by other meansInfected dental bpsbwn4503/11/2008 09/03/2017Arthropathy, unspecified, site Secondary osteoarthritis of left qlpjjett96/26/2018Arthritis of left shoulder ckluby7509/03/2017 Encounters DateTypeDepartmentCare XdcuPvdsuoxgfhf26/25/2025Telephone [facility] [address] [facility] [address] [place] [address] Layla Dumas any commodity buyer Dalrzxddv45/10/2025Telephone [facility] [address] [facility] [address] [place] [address] Layla Dumas any commodity buyer Tseztyaup42/07/2025 2:45 PM CSTPhone Office Visit [facility] [address] [place] [address] [place] [address] Jose Ramon Palacios MD Telehealth (PV: right shoulder recheck, CT review)04/17/20258693Hjqthr05/07/2025 Telephone [facility] [address] [place] [address] Jose Ramon Palacios MD Appointment (Requesting phone call)04/01/2025 1:20 PM CDTAncillary Procedure [facility] [address] [place] [address] [place] [phone] 04/01/2025 1:00 PM CDTOffice Visit [facility] [address] [place] [address] [place] [address] Jose Ramon Palacios MD Shoulder Pain/problem (Bilateral shoulder pain)04/01/2025Travelfrom Last 3 Months Immunizations ImmunizationAdministration DatesNext DueCOVID-19 vaccine (Enservco CorporationBioNTTamago 30mcg/0.3mL) PF, MDV08/03/2020,07/13/2020HepA-HepB (Twinrix)03/30/2004, 05/27/2001,02/06/2001Influenza, High-dose Quadrivalent Ribqzdtuhow94/19/2023, 03/21/2021,05/15/2020Influenza, IIV3 (Age >=3 years)03/14/2008Pneumococcal conj 7-Valent (Prevnar 7)05/27/2001Td (Age >=7 Years)03/30/2004Typhoid (injectable) 02/01/2001Zoster (Zostavax-ZVL, live)12/06/2006,04/19/2006 Family History Medical HistoryRelationNameCommentsHeart DiseaseFatherCancer-breastMaternal GrandmotherUnknownMotherdied in 40s of pneumoniaAutoimmune diseaseSisterNancy ColitisRelationNameStatusCommentsFatherDeceasedMaternal GrandmotherMother DeceasedSisterNancyAlive Social History Tobacco UseTypesPacks/DayYears UsedDateSmoking Tobacco: NeverSmokeless Tobacco: NeverAlcohol UseStandard Drinks/WeekCommentsYes0 (1 standard drink = 0.6 oz pure alcohol)2/weekSocial ConnectionsAnswerDate RecordedFrequency of Communication with Friends and FamilyNot on file06/11/2021Financial Resource StrainAnswerDate RecordedDifficulty of Paying Living ExpensesNot on file2Difficulty of Paying Living ExpensesNot on file06/11/2021CommentsNoSex and Gender InformationValueDate RecordedSex Assigned at BirthNot on fileLegal SexFemale 06/24/2012 6:24 AM CSTGender IdentityNot on fileSexual OrientationNot on file OccupationIndustryJob Start DateJob End DateretiredNot on fileNot on fileNot on file Last Filed Vital Signs Vital SignReadingTime TakenCommentsBlood Vvskudht784/8010/ 3:54 PM CDT Hmmcn9975 3:54 PM CLDGiizscoiuns77.7 ??C (98.1 ??F)09/19/2017 7:46 AM CDTRespiratory Thrd649609/19/2017 7:46 AM CDTOxygen Epfmbudffe40%03/29/2023 3:54 PM CDTInhaled Oxygen Concentration--Jfslrn879.1 kg (242 lb 11.2 oz)03/29/2023 3:54 PM HGVCknwfr529 cm (5' 4.57)03/29/2023 3:54 PM CDTBody Mass Index40.93 03/29/2023 3:54 PM CDT Plan of Treatment DateTypeDepartmentCare Team (Latest Contact Info)Wfyolnrugps33/15/2026 11:15 AM CSTHospital Encounter [facility] [address] [place] [address] Jose Ramon Palacios MD [address] [facility] [address] [place] [address] 06/25/2025 11:15 AM 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 - 06/25/2025 2:23 PM CSTSurgery [facility] [address] [place] [address] Jose Ramon Palacios MD [address] [facility] [address] [place] [address] Right shoulder reverse total shoulder replacement with wedge07/08/2025 12:45 PM CSTOffice Visit [facility] [address] [place] [address] [place] [phone] Jose Ramon Palacios MD [address] [address] NamePriorityAssociated DiagnosesDate/TimeARTHROPLASTY REVERSE SHOULDERTier 3: within 90 days Osteoarthritis of right glenohumeral joint Tendinopathy of right rotator cuff H/O repair of right rotator cuff 06/25/2025 11:15 AM CSTARTHROPLASTY SHOULDER HEMITier 3: within 90 days Osteoarthritis of right glenohumeral joint Tendinopathy of right rotator cuff H/O repair of right rotator cuff 06/25/2025 11:15 AM CSTHealth MaintenanceDue DateLast DoneCommentsDepression screening for age 12+3Pneumococcal series for age 50+ (1 of 1 - PCV) Medicare Wellness for age 65+2006Zoster (shingles) series for age 50+ (2 of 3), 04/19/2006Tetanus booster RSV vaccine for adults or (1 - 1-dose 75+ series) 01/30/2016BMI (ht and wt on same day) for age 18+, 09/03/2017, 02/21/2017Influenza Vaccine (#1)510/09/2007COVID-19 vaccine series ( season), 09/23/2024, 03/20/2024, Additional history existsHepatitis B series for 19+Xezckuahh27/20/2004, 05/27/2001, 02/06/2001DEXA/DXA scan for age 65+Zoxblkdoj51/06/2008 Goals GoalPatient Goal TypeAssociated ProblemsRecent ProgressPatient-Stated?Author Autogenerated Goal Care PlanAutogenerated ProblemNoNSharyn disla Medical Devices ImplantedTypeAreaManufacturerDevice IdentifierShelf Expiration DateModel / Serial / LotCompnt Fem Carla Ii [id number] - [id number] Implanted:Qty: 1 on 10/15/2007 at [facility] Total Joint Right[facility] [id number]# / / [id number] Tibial Carla Ii [id number] [facility] - [id number] Implanted:Qty: 1 on 10/15/2007 at [facility] Total Joint Right: [facility] [id number]# / / [id number] Patella 29mm Resurfacing Carla Ii [id number] [place] - [id number] Implanted:Qty: 1 on 10/15/2007 at [facility] Total Joint Right: [facility] [id number]# / / [id number] Bone [facility] - [id number] Implanted:Qty: 1 [facility] Knee DCRHJPHGR7014-1-308# / / [id number] 1/2 Dosehowmedica - [id number] Implanted:Qty: 1 on [facility]/15/2007 [facility] Knee TJJEPRTZJ7477-7-169# / / [id number] Cr Sz 3-4 13mm Deep Flexion [facility] - [id number] Implanted:Qty: 1 on 10/15/2007 [facility]: [facility] [id number]# / / [id number] Actab 58mm Pors W/Holes 6202-058-22 - [id number] Implanted:Qty: 1 on 03/11/2008 [facility] HipZimmer Cymzob0215-89-18# / / [id number] Bone 6.9uyp47yp Claudia - [id number] Implanted:Qty: 1 on 03/11/2008 [facility] HipZimmer Fipuor7124-42-77# / / [id number] Bone 6.5hac09br Claudia - [id number] Implanted:Qty: 1 on 03/11/2008 [facility] HipZimmer Kihdtw7787-84-71# / / [id number] Poly 58x36 0 Deg Xlpe - [id number] Implanted:Qty: 1 on 03/11/2008 [facility] HipZimmer Onqmji6539-68-44# / / [id number] Fem Short - [id number] Implanted:Qty: 1 on 03/11/2008 [facility] HipZimmer Pnsnli7803-24# / / [id number] Tag Acufex 3.7mm - [id number] Implanted:Qty: 1 on 10/30/2008 [facility] Shoulder [employer]oz And Nephew [id number]# / / [id number] Ftiii - [id number] Implanted:Qty: 1 on 10/30/2008 [facility]: Shoulder Arthrex KehSE-6951DT-4# / / [id number] Tag Acufex 3.7mm - [id number] Implanted:Qty: 1 on 10/30/2008 [facility] Shoulder [employer]hew [id number]# / / [id number] Suture [place] Implanted:Qty: 1 on 03/15/2017 by [facility]ios [facility]: Pwjwhqvt67/30/9077SL-1283-3 / / [id number]:FIBERTAK SUTURE ANCHORFibertak Rc Suture [place] Triple Loaded Implanted:Qty: 1 on 03/15/2017 by [facility]: Yvxipyzz39/30/2022AR-3633 / / [id number]:FIBERTAK RC SUTURE ANCHOR TRIPLE LOADEDCmnt Bone 40g Simplex P Atb Mvtobramycin - [id number] Implanted:Qty: 2 on 09/17/2017 by [facility]: [facility] Rznvnhfutfiu67/30/03428903-2-308# / / [id number] 31x9mm Triathlon Symmetric X3 - [id number] Implanted:Qty: 1 on 09/17/2017 by [facility]: [facility]St[facility] Rbccvkiwsavd90/17/59792704-A-895# / / [id number] Tib Sz4 Triathlon Pe - [id number] Implanted:Qty: 1 on 09/17/2017 by [facility] Mnxlpjpalxnm54/20/13053605-F-464# / / [id number] Lt Sz3 Triathlon Cruc Ret Co Cr - [id number] Implanted:Qty: 1 on 09/17/2017 by [facility] Uynlbyrgxcce83/12/56444736-J-608# / / [id number] Knee Sz4 11mm Triathloncruc Ret X3 - [id number] Implanted:Qty: 1 on 09/17/2017 by [facility] Nuenxmxwsnle44/20/49319329-Z-294# / / [id number] Procedures Procedure NamePriorityDate/TimeAssociated DiagnosisCommentsXR SHOULDER 3 VIEWS YZHXBTCIFQqctazs91/22/2025 1:22 PM CDT s/p left shoulder arthroscopic rotator cuff repair, subacromial decompression, AC joint resection, extensive glenohumeral debridement, open biceps resection/transplantation, DOS: 03/15/2017 s/p right shoulder arthroscopic rotator cuff repair, subacromial decompression, AC joint resection,glenohumeral debridement, open biceps resection/transplantation, DOS: 10/30/2008 SCAN-BONE DENSITOMETRY DEXA01/15/2008 12:00 AM CDT from Last 3 Months or Most Recently Relevant to Health Maintenance Results * XR SHOULDER 3 VIEWS BILATERAL (04/01/2025 1:22 PM CDT)Anatomical Region LateralityModalitySHOULDERSDigital RadiographySpecimen (Source)Anatomical Location / LateralityCollection Method / VolumeCollection TimeReceived Time Impressions 04/02/2025 7:40 AM CDT Evidence of bilateral shoulder glenohumeral joint arthritis that is progressed in comparison to prior radiographs. All services were personally performed by Jose Ramon Palacios MD. ??Documentation performed by Tory Acosta ATC, LAT based on my observation of services performed and provider statements to me. Jose Ramon Palacios MD 04/01/2025 Narrative 04/02/2025 7:40 AM CDT This radiology exam was performed at the [place] location in the [facility] Department and interpreted by Jose Ramon Palacios MD. HISTORY: A 85 y.o. female with bilateral shoulder pain without history of trauma. TECHNICAL: Three view(s) were obtained of the bilateral shoulder consisting of Grashey, Outlet and Axillary. FINDINGS: Bilateral progression of arthritis in glenohumeral joint. Authorizing ProviderResult TypeResult StatusDaniteddy Palacios MDGENERAL IMAGING Final Result * SCAN-BONE DENSITOMETRY DEXA (01/15/2008 12:00 AM CDT)Anatomical Region LateralityModalityOther Narrative Procedure Note Scanner - 01/15/2008 12:00 AM CDT Authorizing ProviderResult TypeResult StatusScannerOTHERFinal Result from Last 3 Months or Most Recently Relevant to Health Maintenance Additional Health Concerns Active ProblemsNoted DateDiagnosed DateAutogenerated Hlzvgmj7305/12/2025Infection Onset DateLast IndicatedESBL Comment:ESBL in urine-03/15/2017 [place] [address] [place] [id number] Advance Directives * Full Code (Latest Code Status on File) Date ActivatedDate InactivatedComments09/17/2017 4:43 PM09/19/2017 1:37 PM * Full Code Date ActivatedDate InactivatedComments09/17/2017 9:50 AM09/17/2017 4:42 PM * Full Code Date ActivatedDate InactivatedComments10/30/2008 12:39 PM10/31/2008 1:14 PM * Full Code Date ActivatedDate StlaeplacyrIqqmmvnr51/1/2008 8:23 PM10 4:36 PM * Full Code Date ActivatedDate InactivatedComments10/15/2007 1:21 PM10/19/2007 4:08 PM Care Teams Team MemberRelationshipSpecialtyStart DateEnd Date Mel Bahena MD [address] [place] [address] PCP - GeneralInternal Medicine08/01/16
--- NOTE | 2025-06-07 13:58 | CRLHL7_ITS ---
For Patients: As a result of the Cures Act, medical imaging exams and procedure reports are released immediately into your electronic medical record. You may view this report before your referring provider. If you have questions, please contact your health care provider. INDICATION: Fall. Trauma. TECHNIQUE: CT of the cervical spine without contrast. Coronal and sagittal reformats are included. COMPARISON: Cervical spine CT from 12/22/2024. FINDINGS: Fractures and other acute findings: No acute fractures or other acute osseous abnormalities, with mildly degraded exam due to motion artifact. Hardware: None. Spinal alignment: Moderate cervical kyphosis. Trace anterolisthesis at C2-3. Grade 2 anterolisthesis at C4-5. Trace retrolisthesis at C6-7. Get an anterolisthesis at C7-T1. Significant cervical spondylosis: Advanced disc degeneration C4-5, C5-6 and C6-7. Fydu-uo-wlbnhpoo disc degeneration elsewhere. Multilevel uncovertebral and facet arthrosis with high-grade neural foraminal stenosis at C4-5 on the left, and zmvx-hg-qiaoqqai elsewhere. There is at least mild spinal canal stenosis at the C4-5 level. Paraspinal soft tissues and imaged lungs: Within normal limits. IMPRESSION: 1. No acute fracture or traumatic malalignment of the cervical spine, with exam mildly degraded by motion artifact. Please note that all CT scans at this facility use dose modulation, iterative reconstruction, and/or weight-based dosing when appropriate to reduce radiation dose to as low as reasonably achievable. Dictated by Nicolas Hardy MD @ 06/07/2025 3:05:52 PM (Electronically Signed)
--- NOTE | 2025-06-07 13:58 | CRLHL7_ITS ---
For Patients: As a result of the Cures Act, medical imaging exams and procedure reports are released immediately into your electronic medical record. You may view this report before your referring provider. If you have questions, please contact your health care provider. INDICATION: Fall, left femur fracture, going to surgery TECHNIQUE: X-ray left femur four views COMPARISON: None. FINDINGS: Osseous structures: The patient is status post a left total hip arthroplasty. There is an acute spiral fracture of the left proximal femoral diaphysis. There is posterior displacement of the distal fracture fragments by approximately 6.9 centimeters, as measured on the lateral view. There is no dislocation. Left knee arthroplasty hardware is also partially visualized. There is decreased bone mineralization. Soft tissues: There is soft tissue swelling over the left thigh. IMPRESSION: 1. Acute spiral fracture of the left proximal femoral diaphysis, with posterior displacement of the distal fracture fragments by approximately 6.9 centimeters. No dislocation. 2. 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 Dictated by Mello Lucas MD @ 06/07/2025 3:11:26 PM (Electronically Signed)
--- NOTE | 2025-06-07 13:58 | CRLHL7_ITS ---
For Patients: As a result of the Cures Act, medical imaging exams and procedure reports are released immediately into your electronic medical record. You may view this report before your referring provider. If you have questions, please contact your health care provider. INDICATION: Fall, left femur fracture TECHNIQUE: Single view pelvis COMPARISONS: Two views left hip December 22, 2024 FINDINGS: There are bilateral total hip arthroplasties again seen. There is partial visualization of a proximal femur fracture with periprosthetic extension. No other displaced injuries are identified. Degenerative changes of the sacroiliac joints are appreciated. The soft tissues are unremarkable. IMPRESSION: Partial visualization of a proximal left femur fracture and extension to the femoral prosthesis. No other displaced injuries of the pelvis. Dictated by Mark Ivory MD @ 06/07/2025 3:19:06 PM (Electronically Signed)
--- NOTE | 2025-06-07 13:58 | CRLHL7_ITS ---
For Patients: As a result of the Century Cures Act, medical imaging exams and procedure reports are released immediately into your electronic medical record. You may view this report before your referring provider. If you have questions, please contact your health care provider. INDICATION: Fall. Trauma. TECHNIQUE: CT of the head without contrast. Coronal and sagittal reformats are included. COMPARISON: Head CT from 12/22/2024. FINDINGS: No acute intracranial hemorrhage. No mass effect or midline shift. No hydrocephalus or extra-axial collections. White matter is within normal limits for age. No acute osseous abnormalities. Mastoid air cells and paranasal sinuses are clear. Normal soft tissues. IMPRESSION: IMPRESSION: 1. No acute intracranial abnormalities. Please note that all CT scans at this facility use dose modulation, iterative reconstruction, and/or weight-based dosing when appropriate to reduce radiation dose to as low as reasonably achievable. Dictated by Nicolas Hardy MD @ 06/07/2025 2:59:40 PM (Electronically Signed)
--- NOTE | 2025-06-07 13:58 | CRLHL7_ITS ---
For Patients: As a result of the Century Cures Act, medical imaging exams and procedure reports are released immediately into your electronic medical record. You may view this report before your referring provider. If you have questions, please contact your health care provider. INDICATION: Fall, left femur fracture TECHNIQUE: X-ray chest one view COMPARISON: X-ray chest 12/22/2024 FINDINGS: Lungs and pleura: There is subsegmental left basilar atelectasis. No lobar airspace consolidation, pleural effusion or pneumothorax. Heart/mediastinum: The heart size is normal. There is a rounded opacity projecting over the lower heart border, which may reflect a hiatal hernia. There are calcifications of the thoracic aorta. Osseous structures: There are degenerative changes within the spine and bilateral shoulders. IMPRESSION: 1. Subsegmental left basilar atelectasis. No lobar airspace consolidation, pleural effusion or pneumothorax. 2. There is a rounded opacity projecting over the lower heart border, which may reflect a hiatal hernia. Dictated by Mello Lucas MD @ 06/07/2025 3:14:14 PM (Electronically Signed)
--- NOTE | 2025-06-07 13:58 | ED.GENADULT ---
HPI - General Adult General Date Seen: 06/07/25 <Senia Ochoa MD - Last Filed: 06/07/25 19:57> Chief complaint: Hip Injury/Pain <Senia Ochoa MD - Last Filed: 06/07/25 19:57> Stated complaint: broke hip <Senia Ochoa MD - Last Filed: 06/07/25 19:57> Time Seen by Provider: 06/07/25 13:57 <Senia Ochoa MD - Last Filed: 06/07/25 19:57> Source: patient, RN notes reviewed and old records reviewed <Senia Ochoa MD - Last Filed: 06/07/25 19:57> Mode of arrival: ambulatory <Senia Ochoa MD - Last Filed: 06/07/25 19:57> Limitations: no limitations <Senia Ochoa MD - Last Filed: 06/07/25 19:57> History of Present Illness HPI narrative: Krysta is a very pleasant 85-year-old female with history of type 2 diabetes, lower extremity edema and grief reaction from recent loss of her , multiple orthopedic surgeries including bilateral hip replacement, bilateral knee replacement who comes to the emergency room via EMS after she suffered a fall at home. She is currently complaining of left hip and upper leg pain. Patient notes that she was standing in the kitchen and she turned and fell. She denied prodromal symptoms to include chest pain shortness of breath or dizziness. She does not think she hit her head but she does have some mild neck pain. She denies back pain or other pain at this time. EMS notes upon arrival patient was in significant discomfort. They did give her 100 mcg of fentanyl but unfortunately this was not enough to control her pain in order for them to move her to the transfer cot. They did administer ketamine EN ended up giving her 100 mg in total. Unfortunately the she then had an apneic episode for approximately 2 minutes in which they use the [id number] successfully. She is awake and oriented upon her arrival but continues to complain of significant pain. <Senia Ochoa MD - Last Filed: 06/07/25 19:57> Related Data Home medications: Home Medications ?Medication ?Instructions ?Recorded ?Confirmed cholecalciferol (vitamin D3) 25 25 mcg PO DAILY 04/20/22 06/02/25 mcg (1,000 unit) capsule ascorbic acid (vitamin C) 1 tab PO DAILY 07/26/23 06/02/25 multivitamin 1 tab PO QAM 07/26/23 06/02/25 melatonin 3 mg capsule 3 mg PO HS 09/23/24 06/02/25 acetaminophen 500 mg capsule 500 mg PO TID PRN 03/09/25 06/02/25 sitagliptin phosphate 50 mg tablet 50 mg PO QDAY 06/02/25 06/02/25 (Januvia) venlafaxine 150 mg 150 mg PO QAM 06/02/25 06/02/25 capsule,extended release 24 hr <Senia Ochoa MD - Last Filed: 06/07/25 19:57> Allergies/adverse reactions: Allergies Allergy/AdvReac Type Severity Reaction Status Date / Time hydrocodone (From Vicodin) Allergy Unknown Hallucinati Verified 06/02/25 08:35 ng naproxen Allergy Unknown Chemical Verified 06/02/25 08:35 Hepatitis propoxyphene (From Allergy Unknown Hallucinati Verified 06/02/25 08:35 Darvocet-N) ng salsalate Allergy Unknown Ototoxicity Verified 06/02/25 08:35 acetaminophen Allergy Chemical Verified 06/02/25 08:35 Hepatitis latex Allergy burning, Verified 06/02/25 08:35 reddness <Senia Ochoa MD - Last Filed: 06/07/25 19:57> Review of Systems Status of ROS: Reports: 10 or more systems reviewed and unremarkable except as noted in History and below <Senia Ochoa MD - Last Filed: 06/07/25 19:57> Const: Denies: fever, chills or fatigue <Senia Ochoa MD - Last Filed: 06/07/25 19:57> Eyes: Denies: change in vision <Senia Ochoa MD - Last Filed: 06/07/25 19:57> ENMT: Reports: neck pain; Denies: throat pain, throat swelling or nasal congestion <Senia Ochoa MD - Last Filed: 06/07/25 19:57> Cardio: Reports: swelling of feet/ankles (Chronic); Denies: chest pain or shortness of breath with exertion <Senia Ochoa MD - Last Filed: 06/07/25 19:57> Resp: Denies: shortness of breath or cough <Senia Ochoa MD - Last Filed: 06/07/25 19:57> GI: Denies: abdominal pain, nausea or vomiting <Senia Ochoa MD - Last Filed: 06/07/25 19:57> : Denies: painful urination or urinary frequency <Senia Ochoa MD - Last Filed: 06/07/25 19:57> Musculo: Reports: neck pain and extremity pain (Left thigh and hip pain); Denies: back pain or extremity swelling <Senia Ochoa MD - Last Filed: 06/07/25 19:57> Neuro: Denies: headache or numbness in extremities <Senia Ochoa MD - Last Filed: 06/07/25 19:57> Endo: Denies: fatigue <Senia Ochoa MD - Last Filed: 06/07/25 19:57> Allergy/Immuno: Denies: throat swelling <Senia Ochoa MD - Last Filed: 06/07/25 19:57> [facility] Medical History: Medical History History of hypertension ?Z86.79 - Personal history of other diseases of the circulatory system (ICD-10) History of migraine ?Z86.69 - Personal history of other diseases of the nervous system and sense organs (ICD-10) <Senia Ochoa MD - Last Filed: 06/07/25 19:57> Surgical History: Surgical History History of carpal tunnel surgery ?Z98.890 - Other specified postprocedural states (ICD-10) Status post total right knee replacement (~2008) ?Z96.651 - Presence of right artificial knee joint (ICD-10) History of tonsillectomy and adenoidectomy ?Z90.89 - Acquired absence of other organs (ICD-10) History of thyroid nodule ?Z86.39 - Personal history of other endocrine, nutritional and metabolic disease (ICD-10) History of repair of rotator cuff ?Z98.890 - Other specified postprocedural states (ICD-10) History of total knee replacement ?Z96.659 - Presence of unspecified artificial knee joint (ICD-10) History of hip replacement ?Z96.649 - Presence of unspecified artificial hip joint (ICD-10) <Senia Ochoa MD - Last Filed: 06/07/25 19:57> Family History: Family History Father Heart disease Sister Colitis <Senia Ochoa MD - Last Filed: 06/07/25 19:57> Social History: Social History Narrative: She lives at home with her . 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 They have hired in-home healthcare assistance to be present for several hours each day. Her is wheelchair-bound due to prior strokes. He transfers from bed to chair with assist though she finds this increase in the difficult with her bad shoulders. He is transitioning to in-home palliative care. Her code status is DNR. Her healthcare power of contracts attorney is her son's Jael. She does not smoke. She does not drink alcohol What is your current living situation?: I presently have a place to live Problems where you live: no known problems Problems where you live details: NA In the past 12 months, utilities in danger of being shut off: no In past 12 months, lack of transportation kept you from medical appts, meetings, work, or getting things needed for daily living: no In the past 12 mos, have been you worried that your food would run out before you had money to buy more?: never true In the past 12 mos, the food you bought just didn't last and you didn't have money to buy more?: never true Highest level of school completed/degree received: Bachelor's degree Smoking Status: Never smoker Do you use any of these nicotine containing products: None Second hand tobacco smoke exposure: No How often do you have a drink containing alcohol: 4 or more times a week Alcohol type: hard liquor How many standard drinks containing alcohol do you have on a typical day: 1 or 2 How often do you have six or more drinks on one occasion: Never AUDIT-C Alcohol total score: 4 Non-prescribed substance use: denies use How often does anyone, including family, friends and others, physically hurt you: never How often does anyone, including family, friends and others, insult or talk down to you: never How often does anyone, including family, friends and others, threaten you with harm: never How often does anyone, including family, friends and others, scream or curse at you: never service: No <Senia Ochoa MD - Last Filed: 06/07/25 19:57> Exam Narrative: Exam Narrative: Alert and oriented. GCS 15 In significant distress. Somewhat distractible and very hypervigilant to any sort of movement. External ears eyes nose clear. Face symmetrical with eyebrow raise and smile. Do not detect swelling of the scalp or any lacerations. Patient has some paraspinous muscular discomfort but no midline tenderness. Upper extremities show symmetrical strength. Left elbow is with ecchymoses but range of motion is full and without discomfort. She has a small laceration over the dorsum of her 3rd digit. It is hemostatic at this time. Her heart is with regular rate and rhythm and lungs are clear. Abdomen is obese soft nontender. Examination of her lower extremities show and externally rotated left hip. Pain with palpation over the distal aspect of the femur as well as proximal aspect. Distally sensation and motor is intact in pedal pulses intact. I was able to further examine patient I do not note any discomfort with palpation over the lumbar spine or thoracic spine. <Senia Ochoa MD - Last Filed: 06/07/25 19:57> Const: Vital Signs, click to edit/add: Vital Signs - 24 hr 06/07/25 13:54 06/07/25 13:56 06/07/25 13:57 Temperature 98 F Pulse Rate 93 93 Pulse Rate [Pulse Oximeter] 92 Respiratory Rate 16 Blood Pressure 170/97 H Blood Pressure [Ri ght Upper Arm] 170/97 H Pulse Oximetry 95 95 96 Oxygen Delivery Me thod Room Air Oxygen Flow Rate 06/07/25 14:00 06/07/25 14:19 06/07/25 14:45 Temperature Pulse Rate 92 95 Pulse Rate [Pulse Oximeter] Respiratory Rate 13 15 Blood Pressure Blood Pressure [Ri ght Upper Arm] Pulse Oximetry 97 95 98 Oxygen Delivery Me thod Oxygen Flow Rate 06/07/25 15:00 06/07/25 15:08 06/07/25 15:09 Temperature Pulse Rate 86 91 88 Pulse Rate [Pulse Oximeter] Respiratory Rate 18 16 15 Blood Pressure 144/90 H 140/87 H Blood Pressure [Ri ght Upper Arm] Pulse Oximetry 97 94 96 Oxygen Delivery Me thod Oxygen Flow Rate 06/07/25 15:15 06/07/25 15:30 06/07/25 15:32 Temperature Pulse Rate 88 88 87 Pulse Rate [Pulse Oximeter] Respiratory Rate 17 16 18 Blood Pressure 151/91 H Blood Pressure [Ri ght Upper Arm] Pulse Oximetry 86 L 97 94 Oxygen Delivery Me thod Oxygen Flow Rate 06/07/25 15:45 06/07/25 15:50 06/07/25 16:00 Temperature Pulse Rate 88 91 Pulse Rate [Pulse Oximeter] Respiratory Rate 14 17 Blood Pressure Blood Pressure [Ri ght Upper Arm] Pulse Oximetry 95 96 92 Oxygen Delivery Me thod Nasal Cannula Nasal Cannula Oxygen Flow Rate 2 2 06/07/25 16:02 06/07/25 16:15 06/07/25 16:30 Temperature Pulse Rate 93 93 93 Pulse Rate [Pulse Oximeter] Respiratory Rate 24 13 10 L Blood Pressure 155/93 H Blood Pressure [Ri ght Upper Arm] Pulse Oximetry 94 94 95 Oxygen Delivery Me thod Nasal Cannula Nasal Cannula Nasal Cannula Oxygen Flow Rate 2 2 2 06/07/25 16:32 06/07/25 16:45 06/07/25 17:00 Temperature Pulse Rate 92 93 96 Pulse Rate [Pulse Oximeter] Respiratory Rate 14 13 19 Blood Pressure 150/89 H Blood Pressure [Ri ght Upper Arm] Pulse Oximetry 99 96 97 Oxygen Delivery Me thod Nasal Cannula Nasal Cannula Nasal Cannula Oxygen Flow Rate 2 2 2 06/07/25 17:02 06/07/25 17:12 06/07/25 17:15 Temperature Pulse Rate 93 89 93 Pulse Rate [Pulse Oximeter] Respiratory Rate 12 7 L 7 L Blood Pressure 150/102 H 138/90 H Blood Pressure [Ri ght Upper Arm] Pulse Oximetry 95 98 98 Oxygen Delivery Me thod Nasal Cannula Nasal Cannula Nasal Cannula Oxygen Flow Rate 2 2 2 06/07/25 17:25 06/07/25 17:30 06/07/25 18:03 Temperature Pulse Rate 87 88 92 Pulse Rate [Pulse Oximeter] Respiratory Rate 20 10 L 15 Blood Pressure 140/84 H 148/81 H Blood Pressure [Ri ght Upper Arm] Pulse Oximetry 98 98 98 Oxygen Delivery Me thod Nasal Cannula Nasal Cannula Nasal Cannula Oxygen Flow Rate 2 2 2 06/07/25 18:04 06/07/25 18:15 06/07/25 18:30 Temperature Pulse Rate 89 95 95 Pulse Rate [Pulse Oximeter] Respiratory Rate 14 17 16 Blood Pressure Blood Pressure [Ri ght Upper Arm] Pulse Oximetry 98 92 94 Oxygen Delivery Me thod Nasal Cannula Nasal Cannula Nasal Cannula Oxygen Flow Rate 2 2 2 06/07/25 18:32 06/07/25 18:45 06/07/25 19:00 Temperature Pulse Rate 97 97 96 Pulse Rate [Pulse Oximeter] Respiratory Rate 14 16 18 Blood Pressure 138/86 Blood Pressure [Ri ght Upper Arm] Pulse Oximetry 95 94 93 Oxygen Delivery Me thod Nasal Cannula Nasal Cannula Nasal Cannula Oxygen Flow Rate 2 2 2 06/07/25 19:02 06/07/25 19:15 06/07/25 19:30 Temperature Pulse Rate 97 93 92 Pulse Rate [Pulse Oximeter] Respiratory Rate 16 14 13 Blood Pressure 143/93 H Blood Pressure [Ri ght Upper Arm] Pulse Oximetry 95 93 95 Oxygen Delivery Me thod Nasal Cannula Nasal Cannula Nasal Cannula Oxygen Flow Rate 2 2 2 06/07/25 19:32 06/07/25 19:33 06/07/25 19:45 Temperature Pulse Rate 88 92 96 Pulse Rate [Pulse Oximeter] Respiratory Rate 14 17 8 L Blood Pressure 145/90 H Blood Pressure [Ri ght Upper Arm] Pulse Oximetry 95 95 95 Oxygen Delivery Me thod Nasal Cannula Nasal Cannula Nasal Cannula Oxygen Flow Rate 2 2 2 06/07/25 20:00 06/07/25 20:02 06/07/25 20:15 Temperature Pulse Rate 96 96 97 Pulse Rate [Pulse Oximeter] Respiratory Rate 17 14 43 H Blood Pressure 111/94 H Blood Pressure [Ri ght Upper Arm] Pulse Oximetry 95 95 98 Oxygen Delivery Me thod Nasal Cannula Nasal Cannula Nasal Cannula Oxygen Flow Rate 2 2 2 06/07/25 20:30 06/07/25 20:33 06/07/25 20:45 Temperature Pulse Rate 91 88 86 Pulse Rate [Pulse Oximeter] Respiratory Rate 11 L 10 L 0 L Blood Pressure 139/81 Blood Pressure [Ri ght Upper Arm] Pulse Oximetry 93 97 95 Oxygen Delivery Me thod Nasal Cannula Nasal Cannula Nasal Cannula Oxygen Flow Rate 2 2 2 06/07/25 21:00 06/07/25 21:02 06/07/25 21:15 Temperature Pulse Rate 87 87 85 Pulse Rate [Pulse Oximeter] Respiratory Rate 9 L 12 9 L Blood Pressure 140/81 H Blood Pressure [Ri ght Upper Arm] Pulse Oximetry 93 93 95 Oxygen Delivery Me thod Nasal Cannula Nasal Cannula Nasal Cannula Oxygen Flow Rate 2 2 2 06/07/25 21:30 06/07/25 21:32 06/07/25 21:45 Temperature Pulse Rate 86 84 85 Pulse Rate [Pulse Oximeter] Respiratory Rate 14 12 9 L Blood Pressure 149/88 H Blood Pressure [Ri ght Upper Arm] Pulse Oximetry 94 96 94 Oxygen Delivery Me thod Nasal Cannula Nasal Cannula Nasal Cannula Oxygen Flow Rate 2 2 2 06/07/25 22:00 06/07/25 22:02 06/07/25 22:15 Temperature Pulse Rate Pulse Rate [Pulse Oximeter] Respiratory Rate 19 16 7 L Blood Pressure 140/89 H Blood Pressure [Ri ght Upper Arm] Pulse Oximetry Oxygen Delivery Me thod Nasal Cannula Nasal Cannula Nasal Cannula Oxygen Flow Rate 2 2 2 06/07/25 22:30 06/07/25 22:32 06/07/25 22:45 Temperature Pulse Rate Pulse Rate [Pulse Oximeter] Respiratory Rate 13 15 14 Blood Pressure 149/87 H Blood Pressure [Ri ght Upper Arm] Pulse Oximetry Oxygen Delivery Me thod Nasal Cannula Nasal Cannula Nasal Cannula Oxygen Flow Rate 2 2 2 06/07/25 23:00 06/07/25 23:02 06/07/25 23:15 Temperature Pulse Rate Pulse Rate [Pulse Oximeter] Respiratory Rate 12 12 16 Blood Pressure 129/97 H Blood Pressure [Ri ght Upper Arm] Pulse Oximetry Oxygen Delivery Me thod Nasal Cannula Nasal Cannula Nasal Cannula Oxygen Flow Rate 2 2 2 06/07/25 23:30 06/07/25 23:32 06/07/25 23:45 Temperature Pulse Rate 85 Pulse Rate [Pulse Oximeter] Respiratory Rate 8 L 9 L 15 Blood Pressure 145/84 H Blood Pressure [Ri ght Upper Arm] Pulse Oximetry 96 Oxygen Delivery Me thod Nasal Cannula Nasal Cannula Nasal Cannula Oxygen Flow Rate 2 2 2 06/08/25 00:00 06/08/25 00:02 06/08/25 00:15 Temperature Pulse Rate 85 85 85 Pulse Rate [Pulse Oximeter] Respiratory Rate 14 28 H 4 L Blood Pressure 155/79 H Blood Pressure [Ri ght Upper Arm] Pulse Oximetry 98 96 95 Oxygen Delivery Me thod Nasal Cannula Nasal Cannula Nasal Cannula Oxygen Flow Rate 2 2 2 06/08/25 00:30 06/08/25 00:32 Temperature Pulse Rate 81 82 Pulse Rate [Pulse Oximeter] Respiratory Rate 9 L 10 L Blood Pressure 141/81 H Blood Pressure [Ri ght Upper Arm] Pulse Oximetry 97 96 Oxygen Delivery Me thod Nasal Cannula Nasal Cannula Oxygen Flow Rate 2 2 <Senia Ochoa MD - Last Filed: 06/07/25 19:57> Vital Signs, click to edit/add: Vital Signs - 24 hr 06/07/25 13:54 06/07/25 13:56 06/07/25 13:57 Temperature 98 F Pulse Rate 93 93 Pulse Rate [Pulse Oximeter] 92 Respiratory Rate 16 Blood Pressure 170/97 H Blood Pressure [Ri ght Upper Arm] 170/97 H Pulse Oximetry 95 95 96 Oxygen Delivery Me thod Room Air Oxygen Flow Rate 06/07/25 14:00 06/07/25 14:19 06/07/25 14:45 Temperature Pulse Rate 92 95 Pulse Rate [Pulse Oximeter] Respiratory Rate 13 15 Blood Pressure Blood Pressure [Ri ght Upper Arm] Pulse Oximetry 97 95 98 Oxygen Delivery Me thod Oxygen Flow Rate 06/07/25 15:00 06/07/25 15:08 06/07/25 15:09 Temperature Pulse Rate 86 91 88 Pulse Rate [Pulse Oximeter] Respiratory Rate 18 16 15 Blood Pressure 144/90 H 140/87 H Blood Pressure [Ri ght Upper Arm] Pulse Oximetry 97 94 96 Oxygen Delivery Me thod Oxygen Flow Rate 06/07/25 15:15 06/07/25 15:30 06/07/25 15:32 Temperature Pulse Rate 88 88 87 Pulse Rate [Pulse Oximeter] Respiratory Rate 17 16 18 Blood Pressure 151/91 H Blood Pressure [Ri ght Upper Arm] Pulse Oximetry 86 L 97 94 Oxygen Delivery Me thod Oxygen Flow Rate 06/07/25 15:45 06/07/25 15:50 06/07/25 16:00 Temperature Pulse Rate 88 91 Pulse Rate [Pulse Oximeter] Respiratory Rate 14 17 Blood Pressure Blood Pressure [Ri ght Upper Arm] Pulse Oximetry 95 96 92 Oxygen Delivery Me thod Nasal Cannula Nasal Cannula Oxygen Flow Rate 2 2 06/07/25 16:02 06/07/25 16:15 06/07/25 16:30 Temperature Pulse Rate 93 93 93 Pulse Rate [Pulse Oximeter] Respiratory Rate 24 13 10 L Blood Pressure 155/93 H Blood Pressure [Ri ght Upper Arm] Pulse Oximetry 94 94 95 Oxygen Delivery Me thod Nasal Cannula Nasal Cannula Nasal Cannula Oxygen Flow Rate 2 2 2 06/07/25 16:32 06/07/25 16:45 06/07/25 17:00 Temperature Pulse Rate 92 93 96 Pulse Rate [Pulse Oximeter] Respiratory Rate 14 13 19 Blood Pressure 150/89 H Blood Pressure [Ri ght Upper Arm] Pulse Oximetry 99 96 97 Oxygen Delivery Me thod Nasal Cannula Nasal Cannula Nasal Cannula Oxygen Flow Rate 2 2 2 06/07/25 17:02 06/07/25 17:12 06/07/25 17:15 Temperature Pulse Rate 93 89 93 Pulse Rate [Pulse Oximeter] Respiratory Rate 12 7 L 7 L Blood Pressure 150/102 H 138/90 H Blood Pressure [Ri ght Upper Arm] Pulse Oximetry 95 98 98 Oxygen Delivery Me thod Nasal Cannula Nasal Cannula Nasal Cannula Oxygen Flow Rate 2 2 2 06/07/25 17:25 06/07/25 17:30 06/07/25 18:03 Temperature Pulse Rate 87 88 92 Pulse Rate [Pulse Oximeter] Respiratory Rate 20 10 L 15 Blood Pressure 140/84 H 148/81 H Blood Pressure [Ri ght Upper Arm] Pulse Oximetry 98 98 98 Oxygen Delivery Me thod Nasal Cannula Nasal Cannula Nasal Cannula Oxygen Flow Rate 2 2 2 06/07/25 18:04 06/07/25 18:15 06/07/25 18:30 Temperature Pulse Rate 89 95 95 Pulse Rate [Pulse Oximeter] Respiratory Rate 14 17 16 Blood Pressure Blood Pressure [Ri ght Upper Arm] Pulse Oximetry 98 92 94 Oxygen Delivery Me thod Nasal Cannula Nasal Cannula Nasal Cannula Oxygen Flow Rate 2 2 2 06/07/25 18:32 06/07/25 18:45 06/07/25 19:00 Temperature Pulse Rate 97 97 96 Pulse Rate [Pulse Oximeter] Respiratory Rate 14 16 18 Blood Pressure 138/86 Blood Pressure [Ri ght Upper Arm] Pulse Oximetry 95 94 93 Oxygen Delivery Me thod Nasal Cannula Nasal Cannula Nasal Cannula Oxygen Flow Rate 2 2 2 06/07/25 19:02 06/07/25 19:15 06/07/25 19:30 Temperature Pulse Rate 97 93 92 Pulse Rate [Pulse Oximeter] Respiratory Rate 16 14 13 Blood Pressure 143/93 H Blood Pressure [Ri ght Upper Arm] Pulse Oximetry 95 93 95 Oxygen Delivery Me thod Nasal Cannula Nasal Cannula Nasal Cannula Oxygen Flow Rate 2 2 2 06/07/25 19:32 06/07/25 19:33 06/07/25 19:45 Temperature Pulse Rate 88 92 96 Pulse Rate [Pulse Oximeter] Respiratory Rate 14 17 8 L Blood Pressure 145/90 H Blood Pressure [Ri ght Upper Arm] Pulse Oximetry 95 95 95 Oxygen Delivery Me thod Nasal Cannula Nasal Cannula Nasal Cannula Oxygen Flow Rate 2 2 2 06/07/25 20:00 06/07/25 20:02 06/07/25 20:15 Temperature Pulse Rate 96 96 97 Pulse Rate [Pulse Oximeter] Respiratory Rate 17 14 43 H Blood Pressure 111/94 H Blood Pressure [Ri ght Upper Arm] Pulse Oximetry 95 95 98 Oxygen Delivery Me thod Nasal Cannula Nasal Cannula Nasal Cannula Oxygen Flow Rate 2 2 2 06/07/25 20:30 06/07/25 20:33 06/07/25 20:45 Temperature Pulse Rate 91 88 86 Pulse Rate [Pulse Oximeter] Respiratory Rate 11 L 10 L 0 L Blood Pressure 139/81 Blood Pressure [Ri ght Upper Arm] Pulse Oximetry 93 97 95 Oxygen Delivery Me thod Nasal Cannula Nasal Cannula Nasal Cannula Oxygen Flow Rate 2 2 2 06/07/25 21:00 06/07/25 21:02 06/07/25 21:15 Temperature Pulse Rate 87 87 85 Pulse Rate [Pulse Oximeter] Respiratory Rate 9 L 12 9 L Blood Pressure 140/81 H Blood Pressure [Ri ght Upper Arm] Pulse Oximetry 93 93 95 Oxygen Delivery Me thod Nasal Cannula Nasal Cannula Nasal Cannula Oxygen Flow Rate 2 2 2 06/07/25 21:30 06/07/25 21:32 06/07/25 21:45 Temperature Pulse Rate 86 84 85 Pulse Rate [Pulse Oximeter] Respiratory Rate 14 12 9 L Blood Pressure 149/88 H Blood Pressure [Ri ght Upper Arm] Pulse Oximetry 94 96 94 Oxygen Delivery Me thod Nasal Cannula Nasal Cannula Nasal Cannula Oxygen Flow Rate 2 2 2 06/07/25 22:00 06/07/25 22:02 06/07/25 22:15 Temperature Pulse Rate Pulse Rate [Pulse Oximeter] Respiratory Rate 19 16 7 L Blood Pressure 140/89 H Blood Pressure [Ri ght Upper Arm] Pulse Oximetry Oxygen Delivery Me thod Nasal Cannula Nasal Cannula Nasal Cannula Oxygen Flow Rate 2 2 2 06/07/25 22:30 06/07/25 22:32 06/07/25 22:45 Temperature Pulse Rate Pulse Rate [Pulse Oximeter] Respiratory Rate 13 15 14 Blood Pressure 149/87 H Blood Pressure [Ri ght Upper Arm] Pulse Oximetry Oxygen Delivery Me thod Nasal Cannula Nasal Cannula Nasal Cannula Oxygen Flow Rate 2 2 2 06/07/25 23:00 06/07/25 23:02 06/07/25 23:15 Temperature Pulse Rate Pulse Rate [Pulse Oximeter] Respiratory Rate 12 12 16 Blood Pressure 129/97 H Blood Pressure [Ri ght Upper Arm] Pulse Oximetry Oxygen Delivery Me thod Nasal Cannula Nasal Cannula Nasal Cannula Oxygen Flow Rate 2 2 2 06/07/25 23:30 06/07/25 23:32 06/07/25 23:45 Temperature Pulse Rate 85 Pulse Rate [Pulse Oximeter] Respiratory Rate 8 L 9 L 15 Blood Pressure 145/84 H Blood Pressure [Ri ght Upper Arm] Pulse Oximetry 96 Oxygen Delivery Me thod Nasal Cannula Nasal Cannula Nasal Cannula Oxygen Flow Rate 2 2 2 06/08/25 00:00 06/08/25 00:02 06/08/25 00:15 Temperature Pulse Rate 85 85 85 Pulse Rate [Pulse Oximeter] Respiratory Rate 14 28 H 4 L Blood Pressure 155/79 H Blood Pressure [Ri ght Upper Arm] Pulse Oximetry 98 96 95 Oxygen Delivery Me thod Nasal Cannula Nasal Cannula Nasal Cannula Oxygen Flow Rate 2 2 2 06/08/25 00:30 06/08/25 00:32 Temperature Pulse Rate 81 82 Pulse Rate [Pulse Oximeter] Respiratory Rate 9 L 10 L Blood Pressure 141/81 H Blood Pressure [Ri ght Upper Arm] Pulse Oximetry 97 96 Oxygen Delivery Me thod Nasal Cannula Nasal Cannula Oxygen Flow Rate 2 2 <Marc Obrien MD - Last Filed: 06/08/25 01:30> Documenting provider has reviewed patient's vital signs: yes <Senia Ochoa MD - Last Filed: 06/07/25 19:57> Course Course ED Course: Differential diagnosis includes but is not limited to femur fracture, hip dislocation, pelvic fracture. Initially did consider hip fracture as well but she has prostheses. Will need to consider urinary tract infection, electrolyte imbalance, as well. Will obtain cervical spine and head CT, chest x-ray, left hip and femur imaging. Will obtain CBC and comprehensive panel as well as urinalysis. At this time patient will need more pain medication and thus we used dilaudid 0.5 mg IV. <Senia Ochoa MD - Last Filed: 06/07/25 19:57> Reevaluation(s) Reevaluation #1: Patient has continued to require different pain medications. Ketamine in small doses from 10-20 mg have been very successful. Additional dose of Dilaudid was given as well. Unfortunately patient has suffered a femur fracture. I was able to talk to our orthopedic team and they note that this is unstable be 3 periprosthetic fracture. Therefore she will need to be transferred. <Senia Ochoa MD - Last Filed: 06/07/25 19:57> Reevaluation #2: PAM Alamoon is consulted in regards to potential block. Was able to successfully do this. Prior to that patient did receive 1 mg of IV Versed and 20 mg of IV ketamine. She tolerated the procedure without difficulty. Following the placement of the block we were able to move the patient to a bed that we obtain from [facility] as it would be much more comfortable. I was able to straighten her knee to almost 0? and was able to use pillows to prop up her very externally rotated hip. She tolerated this very well. Pedal pulses checked and intact. <Senia Ochoa MD - Last Filed: 06/07/25 19:57> Time of Reevaluation #3: 21:10 <Marc Obrien MD - Last Filed: 06/08/25 01:30> Reevaluation #3: Accepted patient sign-out from Dr. De Anda, briefly 85-year-old female with history of hypertension, was twisting tonight and immediate onset of leg pain. She has a periprosthetic fracture of the left hip. <Marc Obrien MD - Last Filed: 06/08/25 01:30> Additional Reevaluation(s): 0005- contacted [facility] transfer center. If no bed available by late morning, contact for direct ED to preop transfer for case scheduled at 2:31 p.m. 0129- patient accepted for transfer by hospitalist Dr. Seo at [facility] with 8 hour delay <Marc Obrien MD - Last Filed: 06/08/25 01:30> Consultations Consultation #1: I spoke with Dr. Cummins, orthopedic surgeon at [place]. He does accept this patient for transfer. Patient is placed on a waiting list however. Will check back in 4 hours to see if we still need the bed and I do believe we will. Unfortunately we do not have EMS availability given the [place] mornings that we are currently experiencing. Patient likely not to get transferred till tomorrow morning. <Senia Ochoa MD - Last Filed: 06/07/25 19:57> Vital Signs Vital signs: Initial Vital Signs Temperature 98 F 06/07/25 13:54 Temperature Source Temporal Artery Scan 06/07/25 13:54 Pulse Rate 92 06/07/25 13:54 Respiratory Rate 16 06/07/25 13:54 Blood Pressure 170/97 H 06/07/25 13:54 Blood Pressure Mean 121 H 06/07/25 13:54 Blood Pressure Position Supine 06/07/25 13:54 Pulse Oximetry 95 06/07/25 13:54 Oxygen Delivery Method Room Air 06/07/25 13:54 Vital Signs Temperature 98 F 06/07/25 13:54 Pulse Rate 92 06/07/25 13:54 Respiratory Rate 16 06/07/25 13:54 Blood Pressure 170/97 H 06/07/25 13:54 Pulse Oximetry 95 06/07/25 13:54 Oxygen Delivery Method Room Air 06/07/25 13:54 Temperature 98 F 06/07/25 13:54 Pulse Rate 82 06/08/25 00:32 Respiratory Rate 10 L 06/08/25 00:32 Blood Pressure 141/81 H 06/08/25 00:32 Pulse Oximetry 96 06/08/25 00:32 Oxygen Delivery Method Nasal Cannula 06/08/25 00:32 Oxygen Flow Rate 2 06/08/25 00:32 <Senia Ochoa MD - Last Filed: 06/07/25 19:57> Initial Vital Signs Temperature 98 F 06/07/25 13:54 Temperature Source Temporal Artery Scan 06/07/25 13:54 Pulse Rate 92 06/07/25 13:54 Respiratory Rate 16 06/07/25 13:54 Blood Pressure 170/97 H 06/07/25 13:54 Blood Pressure Mean 121 H 06/07/25 13:54 Blood Pressure Position Supine 06/07/25 13:54 Pulse Oximetry 95 06/07/25 13:54 Oxygen Delivery Method Room Air 06/07/25 13:54 Vital Signs Temperature 98 F 06/07/25 13:54 Pulse Rate 92 06/07/25 13:54 Respiratory Rate 16 06/07/25 13:54 Blood Pressure 170/97 H 06/07/25 13:54 Pulse Oximetry 95 06/07/25 13:54 Oxygen Delivery Method Room Air 06/07/25 13:54 Temperature 98 F 06/07/25 13:54 Pulse Rate 82 06/08/25 00:32 Respiratory Rate 10 L 06/08/25 00:32 Blood Pressure 141/81 H 06/08/25 00:32 Pulse Oximetry 96 06/08/25 00:32 Oxygen Delivery Method Nasal Cannula 06/08/25 00:32 Oxygen Flow Rate 2 06/08/25 00:32 <Marc Obrien MD - Last Filed: 06/08/25 01:30> Medications Administered Medications: Generic Name Dose Route Start Last Admin Trade Name Freq PRN Reason Stop Dose Admin Sodium Chloride 1,000 mls @ 75 mls/hr 06/07/25 18:15 06/07/25 18:15 0.9 % Sodium Chloride 1000 Ml IV 75 mls/hr .[id number] [id number] Administration Discontinued Medications Generic Name Dose Route Start Last Admin Trade Name Freq PRN Reason Stop Dose Admin Diazepam 5 mg 06/07/25 14:47 06/07/25 15:13 Diazepam 5 Mg/Ml Inj IVP 06/07/25 14:48 Not Given ONCE ONE Hydromorphone HCl 0.5 mg 06/07/25 14:25 06/07/25 14:15 Hydromorphone 0.5 Mg/0.5 Ml Inj IVP 06/07/25 14:26 0.5 mg ONCE ONE Administration Hydromorphone HCl 0.5 mg 06/07/25 15:41 06/07/25 15:48 Hydromorphone 0.5 Mg/0.5 Ml Inj IVP 06/07/25 15:42 0.5 mg ONCE ONE Administration Hydromorphone HCl 0.5 mg 06/07/25 20:15 06/08/25 00:00 Hydromorphone 0.5 Mg/0.5 Ml Inj IVP 0.5 mg Q1H WILFREDO Administration Ketamine HCl 20 mg/ Sodium 100.2 mls @ 200.4 mls/hr 06/07/25 14:56 06/07/25 15:40 Chloride IVPB 06/07/25 15:25 Infused ONCE ONE Infusion Ketamine HCl 20 mg 06/07/25 16:50 06/07/25 17:50 Ketamine Hcl 100 Mg/Ml Inj IVP 06/07/25 16:51 10 mg ONCE ONE Administration Midazolam HCl 1 mg 06/07/25 16:50 06/07/25 17:13 Midazolam Hcl 1 Mg/Ml Inj IVP 06/07/25 16:51 1 mg ONCE ONE Administration <Senia Ochoa MD - Last Filed: 06/07/25 19:57> Generic Name Dose Route Start Last Admin Trade Name Freq PRN Reason Stop Dose Admin Sodium Chloride 1,000 mls @ 75 mls/hr 06/07/25 18:15 06/07/25 18:15 0.9 % Sodium Chloride 1000 Ml IV 75 mls/hr .[id number] WILFREDO Administration Discontinued Medications Generic Name Dose Route Start Last Admin Trade Name Freq PRN Reason Stop Dose Admin Diazepam 5 mg 06/07/25 14:47 06/07/25 15:13 Diazepam 5 Mg/Ml Inj IVP 06/07/25 14:48 Not Given ONCE ONE Hydromorphone HCl 0.5 mg 06/07/25 14:25 06/07/25 14:15 Hydromorphone 0.5 Mg/0.5 Ml Inj IVP 06/07/25 14:26 0.5 mg ONCE ONE Administration Hydromorphone HCl 0.5 mg 06/07/25 15:41 06/07/25 15:48 Hydromorphone 0.5 Mg/0.5 Ml Inj IVP 06/07/25 15:42 0.5 mg ONCE ONE Administration Hydromorphone HCl 0.5 mg 06/07/25 20:15 06/08/25 00:00 Hydromorphone 0.5 Mg/0.5 Ml Inj IVP 0.5 mg Q1H WILFREDO Administration Ketamine HCl 20 mg/ Sodium 100.2 mls @ 200.4 mls/hr 06/07/25 14:56 06/07/25 15:40 Chloride IVPB 06/07/25 15:25 Infused ONCE ONE Infusion Ketamine HCl 20 mg 06/07/25 16:50 06/07/25 17:50 Ketamine Hcl 100 Mg/Ml Inj IVP 06/07/25 16:51 10 mg ONCE ONE Administration Midazolam HCl 1 mg 06/07/25 16:50 06/07/25 17:13 Midazolam Hcl 1 Mg/Ml Inj IVP 06/07/25 16:51 1 mg ONCE ONE Administration <Marc Obrien MD - Last Filed: 06/08/25 01:30> Medical Decision Making MDM Narrative Medical decision making narrative: 1. Left femur fracture-according to Orthopedics this is an unstable be 3 periprosthetic fracture. Patient will need be transfer to outside facility. Acceptance with [facility]. We are on a waiting list. Unable to transfer even if we were excepted at this time because of weather. Pain treated with a combination of ketamine, Versed, Dilaudid. 2. Fall -head and cervical spine CTs without evidence of injury. No evidence of electrolyte imbalance. Creatinine normal at 0.8. Potassium normal at 4.6. Glucose is somewhat elevated at 152. LFTs reassuring. Urinalysis without evidence of UTI. 3. Type 2 diabetes-mild hyperglycemia at 0152. 4. Disposition-plan transfer to [facility] when they have bed availability and we have transfer capability. Will continue to keep patient NPO. Will start maintenance fluids. clinical research monitor with no evidence of arrhythmia. EKG is currently pending This time will sign this patient out to my colleague Dr. Obrien pending transfer. <Senia Ochoa MD - Last Filed: 06/07/25 19:57> Medical Records Medical records reviewed: Yes I reviewed the patient's medical records <Senia Ochoa MD - Last Filed: 06/07/25 19:57> Lab Data Lab results reviewed: Yes I reviewed the patient's lab results <Senia Ochoa MD - Last Filed: 06/07/25 19:57> Labs: Lab Results 06/07/25 06/07/25 Range/Units 14:19 18:00 WBC 10.49 (4.50-11.00) K/uL RBC 4.29 (4.00-5.20) m/uL Hgb 13.4 (12.0-16.0) gm/dL Hct 42.7 (33.0-51.0) % MCV 100 (80-100) fL MCH 31 (26-34) pg MCHC 31 L (32-36) gm/dL RDW Coeff of Mike 13.5 (11.5-15.5) % Plt Count 158 (140-440) K/uL Neut % (Auto) 82.9 H (42.0-72.0) % Lymph % (Auto) 8.0 L (20-44) % [place] % (Auto) 7.1 (0.0-11.0) % Eos % (Auto) 1.3 (0.0-7.0) % Baso % (Auto) 0.3 (0.0-3.0) % Neut # (Auto) 8.70 H (1.7-7.0) K/uL Lymph # (Auto) 0.80 L (0.90-2.90) K/uL [place] # (Auto) 0.70 (0.00-0.90) K/UL Eos # (Auto) 0.14 (0.00-0.50) K/uL Baso # (Auto) 0.03 (0.00-0.30) K/uL Abs Immat Gran (auto) 0.04 (0.00-0.30) K/uL Imm/Tot Granulo (auto) 0.4 % Sodium 136 (135-149) mmol/L Potassium 4.6 (3.6-5.1) mmol/L Chloride 105 (96-114) mmol/L Carbon Dioxide 24 (20-32) mmol/L Anion Gap 7 (7-15) mEq/L BUN 19 (7-30) mg/dL Creatinine 0.8 (0.5-1.5) mg/dL Estimated GFR 73 ml/min Glucose 152 H (60-115) mg/dL Calcium 9.1 (8.4-10.6) mg/dL Total Bilirubin 0.7 (0.1-1.5) mg/dL AST 38 H (12-35) U/L ALT 19 (4-35) U/L Alkaline Phosphatase 127 (40-150) U/L Total Protein 7.1 (6.0-8.3) g/dL Albumin 3.9 (3.3-5.0) g/dL Urine Color Yellow (Yellow) Urine Appearance Clear (Clear) Urine pH 5.5 (5.0-8.5) Ur Specific [place] >= 1.030 (1.000-1.030) Urine Protein Negative (Negative) Urine Glucose (UA) Negative (Negative) Urine Ketones Trace A (Negative) Urine Blood Negative (Negative) Urine Nitrite Negative (Negative) Urine Bilirubin Negative (Negative) Urine Urobilinogen 0.2 (0.2-1.0) Ur Leukocyte Esterase Negative (Negative) Urine RBC 0-2 (0-2) Urine WBC 0-2 (0-5) Ur Squamous Epith Cells Few (None-Few) Urine Bacteria None (None) <Senia Ochoa MD - Last Filed: 06/07/25 19:57> Lab Results 06/07/25 06/07/25 Range/Units 14:19 18:00 WBC 10.49 (4.50-11.00) K/uL RBC 4.29 (4.00-5.20) m/uL Hgb 13.4 (12.0-16.0) gm/dL Hct 42.7 (33.0-51.0) % MCV 100 (80-100) fL MCH 31 (26-34) pg MCHC 31 L (32-36) gm/dL RDW Coeff of Mike 13.5 (11.5-15.5) % Plt Count 158 (140-440) K/uL Neut % (Auto) 82.9 H (42.0-72.0) % Lymph % (Auto) 8.0 L (20-44) % [place] % (Auto) 7.1 (0.0-11.0) % Eos % (Auto) 1.3 (0.0-7.0) % Baso % (Auto) 0.3 (0.0-3.0) % Neut # (Auto) 8.70 H (1.7-7.0) K/uL Lymph # (Auto) 0.80 L (0.90-2.90) K/uL [place] # (Auto) 0.70 (0.00-0.90) K/UL Eos # (Auto) 0.14 (0.00-0.50) K/uL Baso # (Auto) 0.03 (0.00-0.30) K/uL Abs Immat Gran (auto) 0.04 (0.00-0.30) K/uL Imm/Tot Granulo (auto) 0.4 % Sodium 136 (135-149) mmol/L Potassium 4.6 (3.6-5.1) mmol/L Chloride 105 (96-114) mmol/L Carbon Dioxide 24 (20-32) mmol/L Anion Gap 7 (7-15) mEq/L BUN 19 (7-30) mg/dL Creatinine 0.8 (0.5-1.5) mg/dL Estimated GFR 73 ml/min Glucose 152 H (60-115) mg/dL Calcium 9.1 (8.4-10.6) mg/dL Total Bilirubin 0.7 (0.1-1.5) mg/dL AST 38 H (12-35) U/L ALT 19 (4-35) U/L Alkaline Phosphatase 127 (40-150) U/L Total Protein 7.1 (6.0-8.3) g/dL Albumin 3.9 (3.3-5.0) g/dL Urine Color Yellow (Yellow) Urine Appearance Clear (Clear) Urine pH 5.5 (5.0-8.5) Ur Specific [place] >= 1.030 (1.000-1.030) Urine Protein Negative (Negative) Urine Glucose (UA) Negative (Negative) Urine Ketones Trace A (Negative) Urine Blood Negative (Negative) Urine Nitrite Negative (Negative) Urine Bilirubin Negative (Negative) Urine Urobilinogen 0.2 (0.2-1.0) Ur Leukocyte Esterase Negative (Negative) Urine RBC 0-2 (0-2) Urine WBC 0-2 (0-5) Ur Squamous Epith Cells Few (None-Few) Urine Bacteria None (None) <Marc Obrien MD - Last Filed: 06/08/25 01:30> Imaging Data CT scan - head: Attestation: I have reviewed the pertinent imaging results. <Senia Ochoa MD - Last Filed: 06/07/25 19:57> My impression: I do not note acute fracture or intracranial bleed. <Senia Ochoa MD - Last Filed: 06/07/25 19:57> Radiologist's impression: No acute intracranial hemorrhage. No mass effect or midline shift. No hydrocephalus or extra-axial collections. White matter is within normal limits for age. No acute osseous abnormalities. Mastoid air cells and paranasal sinuses are clear. Normal soft tissues. IMPRESSION: IMPRESSION: 1. No acute intracranial abnormalities. <Senia Ochoa MD - Last Filed: 06/07/25 19:57> Cervical spine CT: Attestation: I have reviewed the pertinent imaging results. <Senia Ochoa MD - Last Filed: 06/07/25 19:57> My impression: I do not note any acute fractures <Senia Ochoa MD - Last Filed: 06/07/25 19:57> Radiologist's impression: Fractures and other acute findings: No acute fractures or other acute osseous abnormalities, with mildly degraded exam due to motion artifact. Hardware: None. Spinal alignment: Moderate cervical kyphosis. Trace anterolisthesis at C2-3. Grade 2 anterolisthesis at C4-5. Trace retrolisthesis at C6-7. Get an anterolisthesis at C7-T1. Significant cervical spondylosis: Advanced disc degeneration C4-5, C5-6 and C6-7. [id number] disc degeneration elsewhere. Multilevel uncovertebral and facet arthrosis with high-grade neural foraminal stenosis at C4-5 on the left, and [id number] elsewhere. There is at least mild spinal canal stenosis at the C4-5 level. Paraspinal soft tissues and imaged lungs: Within normal limits. IMPRESSION: 1. No acute fracture or traumatic malalignment of the cervical spine, with exam mildly degraded by motion artifact. <Senia Ochoa MD - Last Filed: 06/07/25 19:57> Pelvis x-ray: Attestation: I have reviewed the pertinent imaging results. <Senia Ochoa MD - Last Filed: 06/07/25 19:57> My impression: Left femur fracture noted. <Senia Ochoa MD - Last Filed: 06/07/25 19:57> Radiologist's impression: There are bilateral total hip arthroplasties again seen. There is partial visualization of a proximal femur fracture with periprosthetic extension. No other displaced injuries are identified. Degenerative changes of the sacroiliac joints are appreciated. The soft tissues are unremarkable. IMPRESSION: Partial visualization of a proximal left femur fracture and extension to the femoral prosthesis. No other displaced injuries of the pelvis. <Senia Ochoa MD - Last Filed: 06/07/25 19:57> Femur x-ray: Attestation: I have reviewed the pertinent imaging results. <Senia Ochoa MD - Last Filed: 06/07/25 19:57> My impression: Femur fracture <Senia Ochoa MD - Last Filed: 06/07/25 19:57> Radiologist's impression: Osseous structures: The patient is status post a left total hip arthroplasty. There is an acute spiral fracture of the left proximal femoral diaphysis. There is posterior displacement of the distal fracture fragments by approximately 6.9 centimeters, as measured on the lateral view. There is no dislocation. Left knee arthroplasty hardware is also partially visualized. There is decreased bone mineralization. Soft tissues: There is soft tissue swelling over the left thigh. IMPRESSION: 1. Acute spiral fracture of the left proximal femoral diaphysis, with posterior displacement of the distal fracture fragments by approximately 6.9 centimeters. No dislocation. 2. 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 <Senia Ochoa MD - Last Filed: 06/07/25 19:57> Chest x-ray: Attestation: I have reviewed the pertinent imaging results. <Senia Ochoa MD - Last Filed: 06/07/25 19:57> Radiologist's impression: Lungs and pleura: There is subsegmental left basilar atelectasis. No lobar airspace consolidation, pleural effusion or pneumothorax. Heart/mediastinum: The heart size is normal. There is a rounded opacity projecting over the lower heart border, which may reflect a hiatal hernia. There are calcifications of the thoracic aorta. Osseous structures: There are degenerative changes within the spine and bilateral shoulders. IMPRESSION: 1. Subsegmental left basilar atelectasis. No lobar airspace consolidation, pleural effusion or pneumothorax. 2. There is a rounded opacity projecting over the lower heart border, which may reflect a hiatal hernia. <Senia Ochoa MD - Last Filed: 06/07/25 19:57> ECG Data Attestation: I personally reviewed and interpreted this ECG as follows: <Senia Ochoa MD - Last Filed: 06/07/25 19:57> Discharge Plan Discharge Clinical Impression: Corina-prosthetic femoral shaft fracture, Hypertension <Senia Ochoa MD - Last Filed: 06/07/25 19:57> Patient Disposition: [facility] <Senia Ochoa MD - Last Filed: 06/07/25 19:57> Prescriptions: No Action cholecalciferol (vitamin D3) 25 mcg (1,000 unit) capsule 25 mcg PO DAILY ascorbic acid (vitamin C) 1 tab PO DAILY multivitamin Tablet 1 tab PO QAM melatonin 3 mg capsule 3 mg PO HS acetaminophen 500 mg capsule 500 mg PO TID PRN Januvia 50 mg tablet 50 mg PO QDAY Rx Instructions: Total of 100mg daily venlafaxine 150 mg capsule,extended release 24hr 150 mg PO QAM <Senia Ochoa MD - Last Filed: 06/07/25 19:57> Stand Alone Forms: [facility] Info Instructions <Senia Ochoa MD - Last Filed: 06/07/25 19:57>
[2025-06-07] MEDS: KETAMINE HCL 20 MG in 0.9 % SODIUM CHLORIDE 100 ml 100 ML 200.4 MG IVPB (15:10)
[2025-06-07 15:23] LABS: Hematocrit* 42.7 % (33.0-51.0); Hemoglobin* 13.4 gm/dL (12.0-16.0); Immature Granulocytes Abs Auto 0.04 K/uL (0.00-0.30); Immature Granulocytes Pct Auto 0.4 %; Mean Corpuscular HGB Conc 31 gm/dL (32-36); Mean Corpuscular Hemoglobin 31 pg (26-34); Mean Corpuscular Volume 100 fL (80-100); RDW Coefficient of Variation % 13.5 % (11.5-15.5); Red Blood Count* 4.29 m/uL (4.00-5.20); White Blood Count* 10.49 K/uL (4.50-11.00)
[2025-06-07 15:24] LABS: Lymphocytes Absolute Auto 0.80 K/uL (0.90-2.90); Slide Review Reflex No
[2025-06-07 15:31] LABS: Chloride* 105 mmol/L (96-114)
[2025-06-07 15:32] LABS: Albumin* 3.9 g/dL (3.3-5.0); Potassium* 4.6 mmol/L (3.6-5.1)
[2025-06-07 15:34] LABS: Alanine Aminotransferase* 19 U/L (4-35); Aspartate Amino Transferase* 38 U/L (12-35); Blood Urea Nitrogen* 19 mg/dL (7-30); Carbon Dioxide* 24 mmol/L (20-32); Creatinine* 0.8 mg/dL (0.5-1.5); Estimated Glomerular Filt Rate 73 ml/min
[2025-06-07 15:35] LABS: Alkaline Phosphatase* 127 U/L (40-150); Bilirubin Total* 0.7 mg/dL (0.1-1.5); Calcium* 9.1 mg/dL (8.4-10.6); Glucose* 152 mg/dL (60-115); Total Protein* 7.1 g/dL (6.0-8.3)
[2025-06-07 15:41] LABS: Sodium* 136 mmol/L (135-149)
[2025-06-07 15:42] LABS: Anion Gap 7 mEq/L (7-15)
[2025-06-07] MEDS: MIDAZOLAM HCL 1 MG/ML inj IVP (17:13)
[2025-06-07] MEDS: KETAMINE HCL 100 MG/ML inj 20 MG IVP (17:50)
--- NOTE | 2025-06-07 17:59 | W.PM.NB ---
Nerve Block Nerve Block Time Seen by Provider: 17:10 Date Seen: 06/07/25 Type of block requested by surgeon for post-operative analgesia: BRANDON/LFCN Side: left Time out performed: Yes Verification of patient name: Yes Verification of date of : Yes Name of person performing procedure: Yolanda Alamoon Continuous monitoring Was continuous monitoring of O2 sat, B/P, machine edge bander, recorded every 15 minutes?: Yes Procedure Checklist: sterile prep, needles and gloves Ultrasound guided. Images saved: Yes Medications given in 5ml increments after negative aspiration: Ropivicaine %: 0.5 mL: 20 Needle gauge: 20 Patient tolerated procedure well: Yes Block Charges Block Charge (with Pro Fee): Femoral Nerve Use of Ultrasound Machine for Block: Yes- US Guidance/pain block
[2025-06-07 18:09] LABS: Appearance Urine Clear (Clear)
[2025-06-08] VITALS (36 sets, daily range): BP systolic 101–155; BP diastolic 58–92; PULSE 68–89; RESP 4–31; TEMP 36.9; O2SAT 89–98
== END 2025-06-08 10:48 | disposition short-term general hospital (02) ==
PROVIDERS: Emergency Provider Family Medicine; PCP Internal Medicine
DX: M97.02XA Periprosthetic fracture around internal prosthetic left hip joint, initial encounter (principal); I10 Essential (primary) hypertension; W19.XXXA Unspecified fall, initial encounter
CPT/HCPCS: 36415; 70450; 71045; 72125; 72170; 73552; 76942; 80053; 81001; 85025; 93005; 94761; 96365; 96375; 96376; 99285; J1171; J2250; J3490; J7030

== ENCOUNTER 2025-06-08 10:17 | Outpatient (CLI) | payer MEDICARE, OTHER, SELFPAY | END 2025-06-08 10:18 | disposition home or self-care (01) | LOC: AMB 06-14 15:37 | PROVIDERS: PCP Internal Medicine; Visit Provider Emergency Medicine | DX: M97.8XXA Periprosthetic fracture around other internal prosthetic joint, initial encounter (principal); I10 Essential (primary) hypertension | CPT/HCPCS: A0425; A0427 ==